=== PATIENT | female | born 1955 | race Caucasian/White ===

== ENCOUNTER 2018-11-05 17:54 | Emergency (ER) | payer MEDICARE, BC ==
[2018-11-05] MEDS ORDERED: Sodium Chloride 0.9% 10 ML Syringe FLUSH PRN (18:27)
[2018-11-05] MEDS ORDERED: Sodium Chloride 0.9% 1,000 ML IV ONE (18:29)
[2018-11-05] MEDS ORDERED: Ondansetron 4 MG/2 ML SDV IVPUSH ONE ×2 (18:29→20:35)
--- NOTE | 2018-11-05 18:46 | EDM.PDOC ---
<Dominick Pino - Last Filed: 11/05/18 19:00> ED HPI GENERAL MEDICAL PROBLEM - General Stated Complaint: THROAT?? Time Seen by Provider: 11/05/18 18:43 Source of Information: Reports: Family History Limitations: Reports: Other (Patient with severe mental retardation and cannot give me any history.) - History of Present Illness INITIAL COMMENTS - FREE TEXT/NARRATIVE: 62-year-old female with developmental delay and mental retardation who according to the patient's mother who is the patient's primary caregiver had a hoarse voice on Sunday of this last week and seemed to improve on Sunday and was eating and drinking normally and having normal activity level per her. The following day though she seemed to be having more discomfort and was sleeping more and was weak according to the mother. Beginning yesterday she slept all day and was complaining of some pain and this appeared to be in her chest. Today according to the mother the patient has been crying all day and pointing to her chest and her back reporting pain in this area. She also developed some vomiting this afternoon that was mostly mucus and that has persisted upon her arrival. She has had no fevers noted by the mother. She had a normal bowel movement today. She has had no apparent difficulty breathing. Really no other history can be obtained. There are no other associated signs or symptoms. There are no other modifying factors. Onset: Other (4 days ago) Duration: Getting Worse Location: Reports: Neck (Throat?), Chest (?), Other (Unknown) Quality: Reports: Other (Unknown) Severity: Moderate (to severe) Improves with: Reports: None Worsens with: Reports: None Context: Reports: Other (As above) Associated Symptoms: Reports: Nausea/Vomiting, Weakness Treatments TRUCK GUARD: Reports: Acetaminophen - Related Data Allergies Allergy/AdvReac Type Severity Reaction Status Date / Time lactose Allergy Diarrhea Verified 11/05/18 20:41 metoclopramide [From Reglan] Allergy Vomiting Verified 11/05/18 20:41 morphine Allergy Rash Verified 11/05/18 20:41 scopolamine Allergy Agitation Verified 11/05/18 20:41 Home Meds: Home Meds Acetaminophen 325 mg PO ASDIRECTED 11/27/15 [History] LORazepam 1 mg PO ASDIRECTED 11/27/15 [History] Multivitamin with Minerals [Multiple Vitamin] 1 tab PO DAILY 11/27/15 [History] Past Medical History HEENT History: Reports: Impaired Vision, Other (See Below) 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 Gastrointestinal History: Reports: Other (See Below) Other Gastrointestinal History: lactose intolarant Musculoskeletal History: Reports: Other (See Below) Other Musculoskeletal History: SCOLIOSIS Neurological History: Reports: Other (See Below) Other Neuro History: MICROCEPHALY Psychiatric History: Reports: Developmental Delay (With mental retardation) - Infectious Disease History Infectious Disease History: Reports: None - Past Surgical History HEENT Surgical History: Reports: Oral Surgery GI Surgical History: Reports: Other (See Below) (Surgery for prolapsed rectum) Musculoskeletal Surgical History: Reports: Hip Replacement Other Dermatological Surgeries/Procedures: Pilonidal cystectomy Social & Family History - Tobacco Use Smoking Status *Q: Never Smoker - Caffeine Use Caffeine Use: Reports: None - Alcohol Use Alcohol Use History: No - Living Situation & Occupation Living situation: Reports: Single Occupation: Disabled Social History Comment: She lives with her mother who is the patient's caregiver and has been for the patient's entire life. ED ROS GENERAL - Review of Systems Review Of Systems: Unable To Obtain (The patient cannot provide this information. The only a patient I have is from the mother and is in the history of present illness.) ED EXAM, GENERAL - Physical Exam Exam: See Below Exam Limited By: Uncooperative General Appearance: Alert, Moderate Distress, Obese Eye Exam: Bilateral Eye: EOMI, Normal Inspection (Sclera are anicteric) Ears: Normal External Exam Nose: Normal Inspection, Normal Mucosa, No Blood Throat/Mouth: Normal Voice, No Airway Compromise, Other (Poor dentition. The oral mucosa appears somewhat dry. I cannot get a good look at her posterior pharynx secondary to her being noncooperative.) Head: Atraumatic Neck: Normal Inspection, Supple, Non-Tender, Full Range of Motion Respiratory/Chest: No Respiratory Distress, Lungs Clear, Normal Breath Sounds, No Accessory Muscle Use, Chest Non-Tender Cardiovascular: Normal Peripheral Pulses, Regular Rate, Rhythm, No JVD, No Murmur Peripheral Pulses: 2+: Radial (L), Radial (R) GI/Abdominal: Normal Bowel Sounds, Soft, Non-Tender, No Mass Back Exam: Normal Inspection Extremities: Normal Inspection, Normal Range of Motion, No Pedal Edema, Normal Capillary Refill Neurological: Alert, No Motor/Sensory Deficits Skin Exam: Warm, Dry, Intact, Normal Color, No Rash Course - Vital Signs Last Recorded V/S: Last Vital Signs Temp 36.3 C 11/05/18 20:00 Pulse 92 11/05/18 20:00 Resp 18 11/05/18 20:00 BP 128/88 11/05/18 20:00 Pulse Ox - Orders/Labs/Meds Orders: Active Orders 24 hr Category Date Time Status EKG Documentation Completion [RC] ASDIRECTED Care 11/05/18 18:28 Active CULTURE URINE [RM] Stat Lab 11/05/18 18:28 Ordered Sodium Chloride 0.9% [Saline Flush] Med 11/05/18 18:27 Active 10 ml FLUSH ASDIRECTED PRN Peripheral IV Insertion Adult [OM.PC] Routine Oth 11/05/18 18:27 Ordered EKG 12 Lead [EK] Routine Ther 11/05/18 18:27 Ordered Medication Orders Sodium Chloride (Saline Flush) 10 ml FLUSH ASDIRECTED PRN PRN Reason: Keep Vein Open Labs: Laboratory Tests 11/05/18 11/05/18 11/05/18 Range/Units 19:11 19:40 19:40 WBC 4.8 (4.5-12.0) X10-3/uL RBC 4.57 (3.23-5.20) x10(6)uL Hgb 13.2 (11.5-15.5) g/dL Hct 40.3 (30.0-51.3) % MCV 88.1 (80-96) fL MCH 28.8 (27.7-33.6) pg MCHC 32.8 (32.2-35.4) g/dL RDW 13.6 (11.5-15.5) % Plt Count 255 (125-369) X10(3)uL MPV 9.3 (7.4-10.4) fL Neut % (Auto) 71.8 (46-82) % Lymph % (Auto) 20.3 (13-37) % [place] % (Auto) 7.3 (4-12) % Eos % (Auto) 0 L (1.0-5.0) % Baso % (Auto) 0 (0-2) % Neut # (Auto) 3.4 (1.6-8.3) # Lymph # (Auto) 1.0 (0.6-5.0) # [place] # (Auto) 0.4 (0.0-1.3) # Eos # (Auto) 0.0 (0.0-0.8) # Baso # (Auto) 0.0 (0.0-0.2) # Sodium 142 (135-145) mmol/L Potassium 4.0 (3.5-5.3) mmol/L Chloride 104 (100-110) mmol/L Carbon Dioxide 27 (21-32) mmol/L BUN 22 H (7-18) mg/dL Creatinine 1.1 H (0.55-1.02) mg/dL Est Cr Clr Drug Dosing TNP Estimated GFR (MDRD) 50 L (>60) BUN/Creatinine Ratio 20.0 (9-20) Glucose 159 H (80-116) mg/dL Lactic Acid (0.4-2.2) mmol/L Calcium 11.0 H (8.6-10.2) mg/dL Total Bilirubin 0.3 (0.1-1.3) mg/dL AST 12 (5-25) IU/L ALT 19 (12-36) U/L Alkaline Phosphatase 147 H (56-112) IU/L Troponin I (<0.017-0.056) ng/mL Total Protein 7.7 (6.0-8.0) g/dL Albumin 3.7 (3.2-4.6) g/dL Globulin 4.0 g/dL Albumin/Globulin Ratio 0.9 Amylase 137 H (25-115) U/L Urine Color Yellow (YELLOW) Urine Appearance Clear (CLEAR) Urine pH 5.0 (5.0-6.5) Ur Specific [place] 1.025 (1.010-1.025) Urine Protein Trace (NEGATIVE) mg/dL Urine Glucose (UA) 250 H (NORMAL) mg/dL Urine Ketones 15 H (NEGATIVE) mg/dL Urine Occult Blood Negative (NEGATIVE) Urine Nitrite Negative (NEGATIVE) Urine Bilirubin Negative (NEGATIVE) Urine Urobilinogen Normal (NEGATIVE) mg/dL Ur Leukocyte Esterase Negative (NEGATIVE) Urine RBC 0-5 (0-5) Urine WBC 0-5 (0-5) Ur Epithelial Cells Occasional Urine Bacteria Few H (NS) Urine Mucus Many H (NS) 11/05/18 11/05/18 Range/Units 19:40 19:40 WBC (4.5-12.0) X10-3/uL RBC (3.23-5.20) x10(6)uL Hgb (11.5-15.5) g/dL Hct (30.0-51.3) % MCV (80-96) fL MCH (27.7-33.6) pg MCHC (32.2-35.4) g/dL RDW (11.5-15.5) % Plt Count (125-369) X10(3)uL MPV (7.4-10.4) fL Neut % (Auto) (46-82) % Lymph % (Auto) (13-37) % [place] % (Auto) (4-12) % Eos % (Auto) (1.0-5.0) % Baso % (Auto) (0-2) % Neut # (Auto) (1.6-8.3) # Lymph # (Auto) (0.6-5.0) # [place] # (Auto) (0.0-1.3) # Eos # (Auto) (0.0-0.8) # Baso # (Auto) (0.0-0.2) # Sodium (135-145) mmol/L Potassium (3.5-5.3) mmol/L Chloride (100-110) mmol/L Carbon Dioxide (21-32) mmol/L BUN (7-18) mg/dL Creatinine (0.55-1.02) mg/dL Est Cr Clr Drug Dosing Estimated GFR (MDRD) (>60) BUN/Creatinine Ratio (9-20) Glucose (80-116) mg/dL Lactic Acid 3.1 H (0.4-2.2) mmol/L Calcium (8.6-10.2) mg/dL Total Bilirubin (0.1-1.3) mg/dL AST (5-25) IU/L ALT (12-36) U/L Alkaline Phosphatase (56-112) IU/L Troponin I < 0.017 L (<0.017-0.056) ng/mL Total Protein (6.0-8.0) g/dL Albumin (3.2-4.6) g/dL Globulin g/dL Albumin/Globulin Ratio Amylase (25-115) U/L Urine Color (YELLOW) Urine Appearance (CLEAR) Urine pH (5.0-6.5) Ur Specific [place] (1.010-1.025) Urine Protein (NEGATIVE) mg/dL Urine Glucose (UA) (NORMAL) mg/dL Urine Ketones (NEGATIVE) mg/dL Urine Occult Blood (NEGATIVE) Urine Nitrite (NEGATIVE) Urine Bilirubin (NEGATIVE) Urine Urobilinogen (NEGATIVE) mg/dL Ur Leukocyte Esterase (NEGATIVE) Urine RBC (0-5) Urine WBC (0-5) Ur Epithelial Cells Urine Bacteria (NS) Urine Mucus (NS) Meds: Medications Generic Name Dose Route Start Last Admin Trade Name Freq PRN Reason Stop Dose Admin Sodium Chloride 10 ml 11/05/18 18:27 Saline Flush FLUSH ASDIRECTED PRN Keep Vein Open Discontinued Medications Generic Name Dose Route Start Last Admin Trade Name Freq PRN Reason Stop Dose Admin Sodium Chloride 1,000 mls @ 999 mls/hr 11/05/18 18:29 11/05/18 21:00 Normal Saline IV 11/05/18 19:29 999 mls/hr .BOLUS ONE Administration Famotidine 20 mg/ Premix 50 mls @ 200 mls/hr 11/05/18 20:35 11/05/18 21:10 IV 11/05/18 20:36 200 mls/hr ONETIME ONE Administration Lorazepam 1 mg 11/05/18 18:58 11/05/18 19:05 Ativan IM 11/05/18 18:59 1 mg ONETIME ONE Administration Lorazepam 1.5 mg 11/05/18 19:56 11/05/18 20:06 Ativan IM 11/05/18 19:57 1.5 mg ONETIME ONE Administration Ondansetron HCl 4 mg 11/05/18 18:29 11/05/18 21:10 Zofran IVPUSH 11/05/18 18:30 4 mg ONETIME ONE Administration Ondansetron HCl 4 mg 11/05/18 20:35 11/05/18 21:16 Zofran IVPUSH 11/05/18 20:36 Not Given ONETIME ONE - Re-Assessments/Exams Free Text/Narrative Re-Assessment/Exam: 11/05/18 19:10: Patient with continual complaints of what appears to be chest pain or throat pain. She does have somewhat dry mucous membranes. I have ordered blood tests, EKG and an IV. We are sedating the patient with Ativan to try to accomplish these things. At this point I will be turning the care over to Dr. Bone. Please see his note in regard to the patient's further care in the emergency department and her disposition. Departure - Departure Time of Disposition: 19:10 Disposition: Home, Self-Care 01 Condition: Fair Clinical Impression: Mental retardation, Dehydration, Mild dehydration Chest pain Qualifiers: Chest pain type: unspecified Qualified Code(s): R07.9 - Chest pain, unspecified Vomiting Qualifiers: Vomiting type: unspecified Vomiting Intractability: non-intractable Nausea presence: with nausea Qualified Code(s): R11.2 - Nausea with vomiting, unspecified GERD (gastroesophageal reflux disease) Qualifiers: Esophagitis presence: with esophagitis Qualified Code(s): K21.0 - Gastro- esophageal reflux disease with esophagitis - Discharge Information Instructions: Food Choices for Gastroesophageal Reflux Disease, Adult, Gastroesophageal Reflux Disease, Adult, [id number] Referrals: Alli Mendes MD [Primary Care Provider] - Additional Instructions: Give famotidine 20 mg every evening for reduction of stomach acid. Give Zofran ODT 4 mg every 8 hrs as needed for nausea. Follow up with you provider within the week. Return if a lot worse. Antacids like Gaviscon after meal time and bedtime may also be helpful, give 30 ml per dose. <Rishi Bone - Last Filed: 11/05/18 22:18> ED HPI GENERAL MEDICAL PROBLEM throat Pain Score (Numeric/FACES): 7 Course - Vital Signs Text/Narrative:: Anesthesia here to assist with IV access. Unsuccessful with attempting to obtain an EKG due to patient resistance. Seems more comfortable after treatment. No vomiting during ER visit. Departure - Departure Time of Disposition: 20:20 - Discharge Information *PRESCRIPTION DRUG MONITORING PROGRAM REVIEWED*: No *COPY OF PRESCRIPTION DRUG MONITORING REPORT IN PATIENT LAURA: No
[2018-11-05] MEDS ORDERED: LORazepam 2 MG/ML SDV IM ONE ×2 (18:58→19:56)
[2018-11-05] MEDS ORDERED: Famotidine/Normal Saline 20 MG in Premix Bag 1 BAG IV ONE (20:35)
--- NOTE | 2018-11-05 21:08 | PCM.SN ---
- Free Text/Narrative Note: Was called to ER to start an IV on combative patient who they have attemptted to start an IV on.With the assistance of three nurses holding patient was able to start a 20 jelco after two attempts in right arm.Secured with coban wrap.
[2018-11-05 21:35] VITALS: BP 128/88
== END 2018-11-05 22:30 | disposition home or self-care (01) ==
LOC: FB.ED 17:54
DX: E86.0 Dehydration (principal); R07.9 Chest pain, unspecified; K21.0 Gastro-esophageal reflux disease with esophagitis; F79 Unspecified intellectual disabilities; Z88.6 Allergy status to analgesic agent; Z91.011 Allergy to milk products; Z88.8 Allergy status to other drugs, medicaments and biological substances; Z79.899 Other long term (current) drug therapy
CPT/HCPCS: 36415; 80053; 81001; 82150; 83605; 84484; 85025; 96361; 96372; 96374; 96375; 99284; J2060; J2405; J7030

== ENCOUNTER 2018-11-13 19:52 | Inpatient (IN) | payer MEDICARE, BC ==
--- NOTE | 2018-11-13 20:42 | EDM.PDOC ---
ED HPI GENERAL MEDICAL PROBLEM - General Chief Complaint: Gastrointestinal Problem Stated Complaint: sick Time Seen by Provider: 11/13/18 20:33 Source of Information: Reports: Patient, Family History Limitations: Reports: No Limitations - History of Present Illness INITIAL COMMENTS - FREE TEXT/NARRATIVE: Patient is a 62-year-old female with a history of microcephaly who comes in tonight by her parents with concern for increasing agitation and significant decrease in by mouth intake. She was seen and evaluated in the ER approximately a week ago and diagnosed at that time with dehydration and possible GERD/upper GI irritation. She was given hydration fluids and started on Pepcid. Her mom reports that she improved for a few days, but today she has no appetite, she has been weak, she is refusing food and she is trembly to the point of doubling over like she is in pain. She has urinated normally, and had a normal bowel movement yesterday. She has not had a fever, she has not vomited, she has not had any other urinary symptoms such as increased frequency or urgency. She has a remote history of seizures, but has been off all medications for 10 years. She has no history of any heart or lung problems. She did have a broken hip which required repair several years ago and also a history of a prolapsed rectum requiring surgery. Otherwise she is generally healthy and is been in the care of her parents her entire life. 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 Gastrointestinal History: Reports: Other (See Below) Other Gastrointestinal History: lactose intolarant Musculoskeletal History: Reports: Other (See Below) Other Musculoskeletal History: SCOLIOSIS Neurological History: Reports: Other (See Below) Other Neuro History: MICROCEPHALY Psychiatric History: Reports: Developmental Delay (With mental retardation) - Infectious Disease History Infectious Disease History: Reports: None - Past Surgical History HEENT Surgical History: Reports: Oral Surgery GI Surgical History: Reports: Other (See Below) (Surgery for prolapsed rectum) Musculoskeletal Surgical History: Reports: Hip Replacement Other Dermatological Surgeries/Procedures: Pilonidal cystectomy Social & Family History - Family History Family Medical History: Noncontributory - Tobacco Use Smoking Status *Q: Never Smoker - Caffeine Use Caffeine Use: Reports: None - Alcohol Use Alcohol Use History: No - Recreational Drug Use Recreational Drug Use: No - Living Situation & Occupation Living situation: Reports: Single Occupation: Disabled Social History Comment: Cared for by Her 2 parents. ED ROS GENERAL - Review of Systems Review Of Systems: Unable To Obtain ED EXAM, GENERAL - Physical Exam Exam: See Below Free Text/Narrative:: General: Awakes to voice, not really responding to questions. Cries out when touched even with just very light touch. She does calm down after a bit. Pupils appear to be equal and reactive. Unable to obtain any sort of throat exam given her agitation. Her neck is supple. Her head appears atraumatic, and she has no tenderness with palpation of the spinous processes completely down her spine. Heart is regular rate and rhythm, lungs are clear throughout with no wheezes or crackles. Scoliosis of her back is noted. Abdomen has slightly decreased bowel sounds but seems to be completely nontender with no rigidity or rebound. Her peripheral pulses are +2 in the upper and lower extremities and she has no lower extremity edema. She has no obvious skin lesions or rashes. She does not answer questions, although her mother states that she can normally answer questions with 1-2 words. Course - Vital Signs Text/Narrative:: Chart reviewed and discussed history with mother extensively. Given patient's agitation, and recent change in mental status, will attempt to obtain a head CT. Discussed using dose of oral Versed for labs and IV placement. Her mother was in agreement with this plan. Following head CT and oral Versed, IV was able to be placed with minimal difficulty. saline bolus 1 L started Last Recorded V/S: Last Vital Signs Temp 35.7 C 11/13/18 19:52 Pulse 77 11/13/18 23:55 Resp 18 11/13/18 23:55 BP 141/80 H 11/13/18 23:55 Pulse Ox 100 11/13/18 23:55 - Orders/Labs/Meds Orders: Active Orders 24 hr Category Date Time Status EKG Documentation Completion [RC] ASDIRECTED Care 11/13/18 20:29 Active Head wo Cont [CT] Stat Exams 11/13/18 20:27 Taken OSMOLALITY, URINE Stat Lab 11/13/18 23:15 Ordered SODIUM,URINE RANDOM [URCHEM] Stat Lab 11/13/18 23:15 Ordered UA W/MICROSCOPIC [URIN] Stat Lab 11/13/18 23:17 Ordered Sodium Chloride 0.9% [Normal Saline] 1,000 ml Med 11/13/18 21:30 Active IV ASDIRECTED EKG 12 Lead [EK] Routine Ther 11/13/18 20:28 Ordered Medication Orders Sodium Chloride (Normal Saline) 1,000 mls @ 999 mls/hr IV ASDIRECTED [facility] Last Admin: 11/13/18 22:15 Dose: 999 mls/hr Dextrose/Sodium Chloride (Dextrose 5%-1/2 Ns) 1,000 mls @ 100 mls/hr IV ASDIRECTED [facility] Labs: Laboratory Tests 11/13/18 11/13/18 11/13/18 Range/Units 22:15 22:15 22:15 WBC 12.0 (4.5-12.0) X10-3/uL RBC 4.88 (3.23-5.20) x10(6)uL Hgb 14.2 (11.5-15.5) g/dL Hct 42.9 (30.0-51.3) % MCV 88.0 (80-96) fL MCH 29.0 (27.7-33.6) pg MCHC 33.0 (32.2-35.4) g/dL RDW 13.6 (11.5-15.5) % Plt Count 273 (125-369) X10(3)uL MPV 9.6 (7.4-10.4) fL Add Manual Diff Yes Neutrophils % (Manual) 88 H (46-82) % Lymphocytes % (Manual) 6 L (13-37) % Monocytes % (Manual) 6 (4-12) % Sodium 147 H (135-145) mmol/L Potassium 4.0 (3.5-5.3) mmol/L Chloride 107 (100-110) mmol/L Carbon Dioxide 27 (21-32) mmol/L BUN 27 H (7-18) mg/dL Creatinine 1.3 H (0.55-1.02) mg/dL Est Cr Clr Drug Dosing 37.75 mL/min Estimated GFR (MDRD) 41 L (>60) BUN/Creatinine Ratio 20.8 H (9-20) Glucose 149 H (80-116) mg/dL Lactic Acid (0.4-2.2) mmol/L Calcium 11.7 H (8.6-10.2) mg/dL Total Bilirubin 0.3 (0.1-1.3) mg/dL AST 16 D (5-25) IU/L ALT 21 D (12-36) U/L Alkaline Phosphatase 146 H (56-112) IU/L Creatine Kinase (60-160) IU/L Troponin I < 0.017 L (<0.017-0.056) ng/mL C-Reactive Protein < 0.2 L (0.5-0.9) mg/dL Total Protein 8.0 (6.0-8.0) g/dL Albumin 3.9 (3.2-4.6) g/dL Globulin 4.1 g/dL Albumin/Globulin Ratio 1.0 11/13/18 11/13/18 Range/Units 22:15 22:15 WBC (4.5-12.0) X10-3/uL RBC (3.23-5.20) x10(6)uL Hgb (11.5-15.5) g/dL Hct (30.0-51.3) % MCV (80-96) fL MCH (27.7-33.6) pg MCHC (32.2-35.4) g/dL RDW (11.5-15.5) % Plt Count (125-369) X10(3)uL MPV (7.4-10.4) fL Add Manual Diff Neutrophils % (Manual) (46-82) % Lymphocytes % (Manual) (13-37) % Monocytes % (Manual) (4-12) % Sodium (135-145) mmol/L Potassium (3.5-5.3) mmol/L Chloride (100-110) mmol/L Carbon Dioxide (21-32) mmol/L BUN (7-18) mg/dL Creatinine (0.55-1.02) mg/dL Est Cr Clr Drug Dosing mL/min Estimated GFR (MDRD) (>60) BUN/Creatinine Ratio (9-20) Glucose (80-116) mg/dL Lactic Acid 2.2 (0.4-2.2) mmol/L Calcium (8.6-10.2) mg/dL Total Bilirubin (0.1-1.3) mg/dL AST (5-25) IU/L ALT (12-36) U/L Alkaline Phosphatase (56-112) IU/L Creatine Kinase 159 (60-160) IU/L Troponin I (<0.017-0.056) ng/mL C-Reactive Protein (0.5-0.9) mg/dL Total Protein (6.0-8.0) g/dL Albumin (3.2-4.6) g/dL Globulin g/dL Albumin/Globulin Ratio Meds: Medications Generic Name Dose Route Start Last Admin Trade Name Freq PRN Reason Stop Dose Admin Sodium Chloride 1,000 mls @ 999 mls/hr 11/13/18 21:30 11/13/18 22:15 Normal Saline IV 999 mls/hr ASDIRECTED BLANE Administration Dextrose/Sodium Chloride 1,000 mls @ 100 mls/hr 11/13/18 23:45 Dextrose 5%-1/2 Ns IV ASDIRECTED [facility] Discontinued Medications Generic Name Dose Route Start Last Admin Trade Name Freq PRN Reason Stop Dose Admin Midazolam HCl 20 mg 11/13/18 20:51 11/13/18 21:40 Versed 2 Mg/Ml Soln PO 11/13/18 20:52 20 mg ONETIME ONE Administration Ondansetron HCl 8 mg 11/13/18 20:46 11/13/18 20:47 Zofran Odt PO 11/13/18 20:47 8 mg ONETIME ONE Administration - Re-Assessments/Exams Free Text/Narrative Re-Assessment/Exam: 11/13/18 CT head returns with no evidence of acute intracranial hemorrhage or midline shift, no obvious masses seen. Labs reviewed and CBC is within normal limits, metabolic profile shows elevated creatinine similar to last week, and patient is hypernatremic. Her CRP is not elevated and lactic acid is within normal limits. She is hypernatremic at 147. She was also noted to have an elevated calcium and elevated alkaline phosphatase. Discussed results with parents. Free water deficit calculated to be approximately 1.3 L, given her not taking any by mouth at this time recommended observation admission to the hospital overnight and will slowly get back some free fluid via IV. Recheck electrolytes in AM may warrant more aggressive treatment of hypercalcemia and will need to address underlying cause Plan: admit obs D5 1/2NS at 100ml/hr minimize disturbance overnight Uosm and Isaura ordered, although I think the cause of her hypernatremia is likely reduced free water intake recheck BMP in AM, includes Ca, Mag and Phos added further per hospitalist patient is DNR/DNI, parents have thought through this decision previously Departure - Departure Time of Disposition: 23:00 Disposition: Refer to Observation Condition: Undetermined Clinical Impression: Dehydration, Mental retardation, Hypernatremia, Hypercalcemia - Discharge Information *PRESCRIPTION DRUG MONITORING PROGRAM REVIEWED*: Not Applicable *COPY OF PRESCRIPTION DRUG MONITORING REPORT IN PATIENT LAURA: Not Applicable - My Orders Last 24 Hours: My Active Orders 11/13/18 20:27 Head wo Cont [CT] Stat 11/13/18 20:28 EKG 12 Lead [EK] Routine 11/13/18 20:29 EKG Documentation Completion [RC] ASDIRECTED 11/13/18 21:30 Sodium Chloride 0.9% [Normal Saline] 1,000 ml IV ASDIRECTED 11/13/18 23:15 OSMOLALITY, URINE Stat SODIUM,URINE RANDOM [URCHEM] Stat 11/13/18 23:17 UA W/MICROSCOPIC [URIN] Stat - Assessment/Plan Last 24 Hours: My Active Orders 11/13/18 20:27 Head wo Cont [CT] Stat 11/13/18 20:28 EKG 12 Lead [EK] Routine 11/13/18 20:29 EKG Documentation Completion [RC] ASDIRECTED 11/13/18 21:30 Sodium Chloride 0.9% [Normal Saline] 1,000 ml IV ASDIRECTED 11/13/18 23:15 OSMOLALITY, URINE Stat SODIUM,URINE RANDOM [URCHEM] Stat 11/13/18 23:17 UA W/MICROSCOPIC [URIN] Stat
[2018-11-13] MEDS ORDERED: Ondansetron 8 MG Tab.DIS PO ONE (20:46)
[2018-11-13] MEDS ORDERED: Midazolam Oral Soln 10 MG/5 ML UD Cup PO ONE (20:51)
[2018-11-13] MEDS ORDERED: Sodium Chloride 0.9% 1,000 ML IV SCH (21:30)
[2018-11-13] MEDS ORDERED: Dextrose 5%-0.45% NaCl 1,000 ML IV SCH (23:45)
--- NOTE | 2018-11-14 08:44 | PCM.HP.2 ---
H&P History of Present Illness - General Date of Service: 11/14/18 Admit Problem/Dx: Admission Diagnosis/Problem Admission Diagnosis/Problem Hypernatremia Source of Information: Family, Old Records History Limitations: Reports: Altered Mental Status - History of Present Illness Initial Comments - Free Text/Narative: This is a 62-year-old female patient with microcephaly but said 2 week history of not eating decrease consciousness. History is given by her mother which she lives with. Shows a lives with father. They said about a week ago about her and she was having what looked like chest pain and they did evaluation was negative and give her some fluids and sent home. Since then she's been getting more lethargic until yesterday she would want. Her normal function is she walks, goes about the, self dresses up. Mom states she has to help her do her hair and clean herself. A few times in the past she's had problems or she just laid there and didn't eat or drink for 2 weeks and also came out of it. She cannot give me a history. The only thing the parents as they ER told him she had reflux and she has leg swelling pills now because seems to hurt. - Related Data Allergies/Adverse Reactions: Allergies Allergy/AdvReac Type Severity Reaction Status Date / Time lactose Allergy Diarrhea Verified 11/05/18 20:41 metoclopramide [From Reglan] Allergy Vomiting Verified 11/05/18 20:41 morphine Allergy Rash Verified 11/05/18 20:41 scopolamine Allergy Agitation Verified 11/05/18 20:41 Home Medications: Home Meds Acetaminophen 325 mg PO ASDIRECTED 11/27/15 [History] Multivitamin with Minerals [Multiple Vitamin] 1 tab PO DAILY 11/27/15 [History] Famotidine 20 mg PO BEDTIME #30 tablet 11/05/18 [Rx] Past Medical History HEENT History: Reports: Impaired Vision, Other (See Below) 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 Gastrointestinal History: Reports: Other (See Below) Other Gastrointestinal History: lactose intolarant Musculoskeletal History: Reports: Other (See Below) Other Musculoskeletal History: SCOLIOSIS Neurological History: Reports: Other (See Below) Other Neuro History: MICROCEPHALY Psychiatric History: Reports: Developmental Delay (With mental retardation) - Infectious Disease History Infectious Disease History: Reports: None - Past Surgical History HEENT Surgical History: Reports: Oral Surgery GI Surgical History: Reports: Other (See Below) (Surgery for prolapsed rectum) Musculoskeletal Surgical History: Reports: Hip Replacement Other Dermatological Surgeries/Procedures: Pilonidal cystectomy Social & Family History - Family History Family Medical History: Noncontributory Cardiac: Reports: Heart Failure Musculoskeletal: Reports: Back pain, Chronic Endocrine/Metabolic: Reports: Diabetes, type II Hematologic: Reports: Other (See Below) Other Hematologic Family History: unknown blood disorder - Tobacco Use Smoking Status *Q: Never Smoker Second Hand Smoke Exposure: No - Caffeine Use Caffeine Use: Reports: None - Recreational Drug Use Recreational Drug Use: No - Living Situation & Occupation Living situation: Reports: Single Occupation: Disabled H&P Review of Systems - Review of Systems: Review Of Systems: Unable To Obtain Exam - Exam Exam: See Below - Vital Signs Vital Signs: Last Vital Signs Temp 98.2 F 11/14/18 06:01 Pulse 78 11/14/18 06:01 Resp 18 11/14/18 06:01 BP 135/76 11/14/18 06:01 Pulse Ox 99 11/14/18 06:01 Weight: 87 lb 1 oz - Exam General: Other (Eyes open and if I ask her to move she groans.) HEENT: Hearing Intact, Other (Not able to get a good look at her throat.) Neck: Supple, Trachea Midline Lungs: Clear to Auscultation, Normal Respiratory Effort Cardiovascular: Regular Rate, Regular Rhythm. No: Systolic Murmur GI/Abdominal Exam: Normal Bowel Sounds, Soft, Non-Tender. No: No Distention Back Exam: Normal Inspection Extremities: Normal Inspection, No Pedal Edema Skin: Warm Neurological: Normal Tone - Patient Data Lab Results Last 24 hrs: Laboratory Results - last 24 hr 11/13/18 11/13/18 11/13/18 Range/Units 22:15 22:15 22:15 WBC 12.0 (4.5-12.0) X10-3/uL RBC 4.88 (3.23-5.20) x10(6)uL Hgb 14.2 (11.5-15.5) g/dL Hct 42.9 (30.0-51.3) % MCV 88.0 (80-96) fL MCH 29.0 (27.7-33.6) pg MCHC 33.0 (32.2-35.4) g/dL RDW 13.6 (11.5-15.5) % Plt Count 273 (125-369) X10(3)uL MPV 9.6 (7.4-10.4) fL Add Manual Diff Yes Neutrophils % (Manual) 88 H (46-82) % Lymphocytes % (Manual) 6 L (13-37) % Monocytes % (Manual) 6 (4-12) % Sodium 147 H (135-145) mmol/L Potassium 4.0 (3.5-5.3) mmol/L Chloride 107 (100-110) mmol/L Carbon Dioxide 27 (21-32) mmol/L BUN 27 H (7-18) mg/dL Creatinine 1.3 H (0.55-1.02) mg/dL Est Cr Clr Drug Dosing 37.75 mL/min Estimated GFR (MDRD) 41 L (>60) BUN/Creatinine Ratio 20.8 H (9-20) Glucose 149 H (80-116) mg/dL Lactic Acid (0.4-2.2) mmol/L Calcium 11.7 H (8.6-10.2) mg/dL Total Bilirubin 0.3 (0.1-1.3) mg/dL AST 16 D (5-25) IU/L ALT 21 D (12-36) U/L Alkaline Phosphatase 146 H (56-112) IU/L Creatine Kinase (60-160) IU/L Troponin I < 0.017 L (<0.017-0.056) ng/mL C-Reactive Protein < 0.2 L (0.5-0.9) mg/dL Total Protein 8.0 (6.0-8.0) g/dL Albumin 3.9 (3.2-4.6) g/dL Globulin 4.1 g/dL Albumin/Globulin Ratio 1.0 Urine Color (YELLOW) Urine Appearance (CLEAR) Urine pH (5.0-6.5) Ur Specific [place] (1.010-1.025) Urine Protein (NEGATIVE) mg/dL Urine Glucose (UA) (NORMAL) mg/dL Urine Ketones (NEGATIVE) mg/dL Urine Occult Blood (NEGATIVE) Urine Nitrite (NEGATIVE) Urine Bilirubin (NEGATIVE) Urine Urobilinogen (NEGATIVE) mg/dL Ur Leukocyte Esterase (NEGATIVE) Urine RBC (0-5) Urine WBC (0-5) Ur Squamous Epith Cells (NS,R,O) Urine Bacteria (NS) Urine Mucus (NS) Ur Random Sodium mmol/L 11/13/18 11/13/18 11/14/18 Range/Units 22:15 22:15 05:45 WBC (4.5-12.0) X10-3/uL RBC (3.23-5.20) x10(6)uL Hgb (11.5-15.5) g/dL Hct (30.0-51.3) % MCV (80-96) fL MCH (27.7-33.6) pg MCHC (32.2-35.4) g/dL RDW (11.5-15.5) % Plt Count (125-369) X10(3)uL MPV (7.4-10.4) fL Add Manual Diff Neutrophils % (Manual) (46-82) % Lymphocytes % (Manual) (13-37) % Monocytes % (Manual) (4-12) % Sodium (135-145) mmol/L Potassium (3.5-5.3) mmol/L Chloride (100-110) mmol/L Carbon Dioxide (21-32) mmol/L BUN (7-18) mg/dL Creatinine (0.55-1.02) mg/dL Est Cr Clr Drug Dosing mL/min Estimated GFR (MDRD) (>60) BUN/Creatinine Ratio (9-20) Glucose (80-116) mg/dL Lactic Acid 2.2 (0.4-2.2) mmol/L Calcium (8.6-10.2) mg/dL Total Bilirubin (0.1-1.3) mg/dL AST (5-25) IU/L ALT (12-36) U/L Alkaline Phosphatase (56-112) IU/L Creatine Kinase 159 (60-160) IU/L Troponin I (<0.017-0.056) ng/mL C-Reactive Protein (0.5-0.9) mg/dL Total Protein (6.0-8.0) g/dL Albumin (3.2-4.6) g/dL Globulin g/dL Albumin/Globulin Ratio Urine Color (YELLOW) Urine Appearance (CLEAR) Urine pH (5.0-6.5) Ur Specific [place] (1.010-1.025) Urine Protein (NEGATIVE) mg/dL Urine Glucose (UA) (NORMAL) mg/dL Urine Ketones (NEGATIVE) mg/dL Urine Occult Blood (NEGATIVE) Urine Nitrite (NEGATIVE) Urine Bilirubin (NEGATIVE) Urine Urobilinogen (NEGATIVE) mg/dL Ur Leukocyte Esterase (NEGATIVE) Urine RBC (0-5) Urine WBC (0-5) Ur Squamous Epith Cells (NS,R,O) Urine Bacteria (NS) Urine Mucus (NS) Ur Random Sodium 61 mmol/L 11/14/18 11/14/18 Range/Units 05:45 07:00 WBC (4.5-12.0) X10-3/uL RBC (3.23-5.20) x10(6)uL Hgb (11.5-15.5) g/dL Hct (30.0-51.3) % MCV (80-96) fL MCH (27.7-33.6) pg MCHC (32.2-35.4) g/dL RDW (11.5-15.5) % Plt Count (125-369) X10(3)uL MPV (7.4-10.4) fL Add Manual Diff Neutrophils % (Manual) (46-82) % Lymphocytes % (Manual) (13-37) % Monocytes % (Manual) (4-12) % Sodium 146 H (135-145) mmol/L Potassium 3.9 (3.5-5.3) mmol/L Chloride 111 H (100-110) mmol/L Carbon Dioxide 30 (21-32) mmol/L BUN 25 H (7-18) mg/dL Creatinine 1.0 (0.55-1.02) mg/dL Est Cr Clr Drug Dosing 35.43 mL/min Estimated GFR (MDRD) 56 L (>60) BUN/Creatinine Ratio 25.0 H (9-20) Glucose 154 H (80-116) mg/dL Lactic Acid (0.4-2.2) mmol/L Calcium 10.2 (8.6-10.2) mg/dL Total Bilirubin (0.1-1.3) mg/dL AST (5-25) IU/L ALT (12-36) U/L Alkaline Phosphatase (56-112) IU/L Creatine Kinase (60-160) IU/L Troponin I (<0.017-0.056) ng/mL C-Reactive Protein (0.5-0.9) mg/dL Total Protein (6.0-8.0) g/dL Albumin (3.2-4.6) g/dL Globulin g/dL Albumin/Globulin Ratio Urine Color Yellow (YELLOW) Urine Appearance Clear (CLEAR) Urine pH 5.0 (5.0-6.5) Ur Specific [place] 1.025 (1.010-1.025) Urine Protein Trace (NEGATIVE) mg/dL Urine Glucose (UA) 50 H (NORMAL) mg/dL Urine Ketones 50 H (NEGATIVE) mg/dL Urine Occult Blood Negative (NEGATIVE) Urine Nitrite Negative (NEGATIVE) Urine Bilirubin Negative (NEGATIVE) Urine Urobilinogen Normal (NEGATIVE) mg/dL Ur Leukocyte Esterase Negative (NEGATIVE) Urine RBC 0-5 (0-5) Urine WBC 0-5 (0-5) Ur Squamous Epith Cells Few H (NS,R,O) Urine Bacteria Few H (NS) Urine Mucus Moderate H (NS) Ur Random Sodium mmol/L Result Diagrams: 11/13/18 22:15 11/14/18 07:00 - Problem List (1) Dehydration SNOMED Code(s): 97778773 ICD Code: E86.0 - DEHYDRATION Status: Acute Current Visit: Yes (2) Hypercalcemia SNOMED Code(s): 25081551 ICD Code: E83.52 - HYPERCALCEMIA Status: Acute Current Visit: Yes (3) Hypernatremia SNOMED Code(s): 474615139 ICD Code: E87.0 - HYPEROSMOLALITY AND HYPERNATREMIA Status: Acute Current Visit: Yes (4) Mental retardation SNOMED Code(s): 664294268 ICD Code: F79 - UNSPECIFIED INTELLECTUAL DISABILITIES Status: Chronic Current Visit: Yes (5) GERD (gastroesophageal reflux disease) SNOMED Code(s): 654881324 ICD Code: K21.9 - GASTRO-ESOPHAGEAL REFLUX DISEASE WITHOUT ESOPHAGITIS Status: Acute Current Visit: No Qualifiers: Esophagitis presence: with esophagitis Qualified Code(s): K21.0 - Gastro- esophageal reflux disease with esophagitis (6) Seizure disorder SNOMED Code(s): 562352410 ICD Code: G40.909 - EPILEPSY, UNSP, NOT INTRACTABLE, WITHOUT STATUS EPILEPTICUS Status: Chronic Current Visit: No Problem List Initiated/Reviewed/Updated: Yes Orders Last 24hrs: Active Orders 24 hr Category Date Time Status Patient Status [ADT] Routine ADT 11/13/18 23:51 Active Oxygen Therapy [RC] PRN Care 11/13/18 23:51 Active Up With Assistance [RC] ASDIRECTED Care 11/13/18 23:51 Active VTE/DVT Education [RC] Per Unit Routine Care 11/13/18 23:51 Active Vital Signs [RC] 00,04,08,12,16,20 Care 11/13/18 23:51 Active Regular Diet [DIET] Diet 11/14/18 Breakfast Active Head wo Cont [CT] Stat Exams 11/13/18 20:27 Taken OSMOLALITY, URINE Stat Lab 11/13/18 23:15 Received Dextrose 5%-0.45% NaCl [Dextrose 5%-1/2 NS] 1,000 ml Med 11/13/18 23:45 Active IV ASDIRECTED Resuscitation Status Routine Resus Stat 11/13/18 23:51 Ordered EKG 12 Lead [EK] Routine Ther 11/13/18 20:28 Ordered Medication Orders Dextrose/Sodium Chloride (Dextrose 5%-1/2 Ns) 1,000 mls @ 100 mls/hr IV ASDIRECTED [facility] Last Admin: 11/14/18 00:56 Dose: 100 mls/hr Assessment/Plan Comment:: 1. Admit for observation. 2. DNR DNI requested by her caregivers 3. IV fluids with free water to correct her sodium 4. Recheck BMP 5. Regular diet 6. Resume regular medications 7. Up with assist 8. Lovenox for VTE prophylaxis. 9. Family does not want anything overly aggressive done
[2018-11-14] MEDS ORDERED: Enoxaparin 40 MG/0.4 ML Syringe SUBCUT SCH (08:45)
[2018-11-14] MEDS: Enoxaparin 30 MG/0.3 ML Syringe SUBCUT SCH (09:47)
[2018-11-14] MEDS: Sodium Chloride 0.9% 1,000 ML IV SCH ×2 (11:06→17:40)
[2018-11-14] MEDS ORDERED: Famotidine 20 MG Tab PO SCH (21:00)
[2018-11-15] MEDS: Sodium Chloride 0.9% 1,000 ML IV SCH ×4 (00:52→23:30)
[2018-11-15] MEDS: Enoxaparin 30 MG/0.3 ML Syringe SUBCUT SCH (10:36)
--- NOTE | 2018-11-15 14:01 | PCM.PN ---
- General Info Date of Service: 11/15/18 Subjective Update: Information from mom this morning, gagging on her Pepcid last night, thought she was doing well overnight but states she is not to her baseline and felt she couldn't care for her safely at home. She is urinating more but no odor, is on IV fluids at 150 ml/hr. No diarrhea/vomiting. Normally walks and dresses herself. - Patient Data Vitals - Most Recent: Last Vital Signs Temp 36.7 C 11/15/18 12:00 Pulse 72 11/15/18 12:00 Resp 15 11/15/18 12:00 BP 132/68 11/15/18 12:00 Pulse Ox 97 11/15/18 12:00 Weight - Most Recent: 39.491 kg I&O - Last 24 Hours: Intake & Output 11/14/18 11/15/18 11/15/18 22:59 06:59 14:59 Intake Total 2399 Output Total 750 400 Balance 1649 -400 Lab Results Last 24 Hours: Laboratory Results - last 24 hr 11/14/18 11/15/18 Range/Units 16:54 06:06 Sodium 146 H 145 (135-145) mmol/L Potassium 3.9 (3.5-5.3) mmol/L Chloride 111 H (100-110) mmol/L Carbon Dioxide 26 (21-32) mmol/L BUN 12 D (7-18) mg/dL Creatinine 0.7 (0.55-1.02) mg/dL Est Cr Clr Drug Dosing 50.62 mL/min Estimated GFR (MDRD) > 60 (>60) BUN/Creatinine Ratio 17.1 (9-20) Glucose 92 (80-116) mg/dL Calcium 9.6 (8.6-10.2) mg/dL Med Orders - Current: Current Medications Enoxaparin Sodium (Lovenox) 30 mg SUBCUT Q24H [facility] Last Admin: 11/15/18 10:36 Dose: 30 mg Famotidine (Pepcid) 20 mg PO BEDTIME [facility] Last Admin: 11/14/18 22:03 Dose: Not Given Sodium Chloride (Normal Saline) 1,000 mls @ 125 mls/hr IV ASDIRECTED [facility] Last Infusion: 11/15/18 10:30 Dose: 125 mls/hr Famotidine 20 mg/ Premix 50 mls @ 200 mls/hr IV BEDTIME [facility] Discontinued Medications Sodium Chloride (Normal Saline) 1,000 mls @ 999 mls/hr IV ASDIRECTED [facility] Last Admin: 11/13/18 22:15 Dose: 999 mls/hr Dextrose/Sodium Chloride (Dextrose 5%-1/2 Ns) 1,000 mls @ 100 mls/hr IV ASDIRECTED [facility] Last Admin: 11/14/18 00:56 Dose: 100 mls/hr Midazolam HCl (Versed 2 Mg/Ml Soln) 20 mg PO ONETIME ONE Stop: 11/13/18 20:52 Last Admin: 11/13/18 21:40 Dose: 20 mg Ondansetron HCl (Zofran Odt) 8 mg PO ONETIME ONE Stop: 11/13/18 20:47 Last Admin: 11/13/18 20:47 Dose: 8 mg - Exam General: Alert, No Acute Distress Lungs: Clear to Auscultation, Normal Respiratory Effort Cardiovascular: Regular Rate, Regular Rhythm GI/Abdominal Exam: Normal Bowel Sounds, Soft, Non-Tender, No Distention Extremities: No Pedal Edema Skin: Dry (lips) - Problem List & Annotations (1) Microencephaly SNOMED Code(s): 0585345 Code(s): Q02 - MICROCEPHALY Status: Acute Current Visit: Yes (2) Dehydration SNOMED Code(s): 01635320 Code(s): E86.0 - DEHYDRATION Status: Acute Current Visit: Yes (3) Hypernatremia SNOMED Code(s): 954464246 Code(s): E87.0 - HYPEROSMOLALITY AND HYPERNATREMIA Status: Acute Current Visit: Yes (4) Mental retardation SNOMED Code(s): 103381988 Code(s): F79 - UNSPECIFIED INTELLECTUAL DISABILITIES Status: Chronic Current Visit: Yes (5) GERD (gastroesophageal reflux disease) SNOMED Code(s): 564088483 Code(s): K21.9 - GASTRO-ESOPHAGEAL REFLUX DISEASE WITHOUT ESOPHAGITIS Status: Acute Current Visit: No Qualifiers: Esophagitis presence: with esophagitis Qualified Code(s): K21.0 - Gastro- esophageal reflux disease with esophagitis (6) Seizure disorder SNOMED Code(s): 804756387 Code(s): G40.909 - EPILEPSY, UNSP, NOT INTRACTABLE, WITHOUT STATUS EPILEPTICUS Status: Chronic Current Visit: No - Problem List Review Problem List Initiated/Reviewed/Updated: Yes - My Orders Last 24 Hours: My Active Orders 11/15/18 09:15 PT Evaluation and Treatment [CONS] Routine 11/15/18 21:00 Famotidine/Normal Saline [Famotidine in NS Premix] 20 mg Premix Bag 1 bag IV BEDTIME - Plan Plan:: 1. Labs corrected this morning, decrease to NS 125 ml/hr. 2. DNR DNI requested by her caregivers 3. Regular diet 4. Resume regular medications except pepcid will hold and give IV as she is gagging with this one. 5. Up with assist 6. Lovenox for VTE prophylaxis. 7. Family does not want anything overly aggressive done
[2018-11-15] MEDS: Famotidine/Normal Saline 20 MG in Premix Bag 1 BAG IV SCH (20:51)
[2018-11-16] MEDS: Sodium Chloride 0.9% 1,000 ML IV SCH ×2 (07:31→15:36)
[2018-11-16] MEDS: Enoxaparin 30 MG/0.3 ML Syringe SUBCUT SCH (08:53)
--- NOTE | 2018-11-16 09:29 | PCM.PN ---
- General Info Date of Service: 11/16/18 Subjective Update: History from mom as patient has limited verbal abilities. She has been taking sips of water. Mom would like to try some soft foods. [place] she was better since switching Pepcid to IV form. She does tolerate liquid forms. Went 5 hours last night without having to get up to urinate. She is able to ambulate with one assist per nursing. - Patient Data Vitals - Most Recent: Last Vital Signs Temp 36.5 C 11/16/18 00:00 Pulse 68 11/16/18 00:00 Resp 18 11/16/18 04:00 BP 155/90 H 11/16/18 00:00 Pulse Ox 99 11/16/18 00:00 Weight - Most Recent: 39.599 kg I&O - Last 24 Hours: Intake & Output 11/15/18 11/16/18 11/16/18 22:59 06:59 14:59 Intake Total 2225 814 Output Total 300 Balance 1925 814 Med Orders - Current: Current Medications Enoxaparin Sodium (Lovenox) 30 mg SUBCUT Q24H [facility] Last Admin: 11/16/18 08:53 Dose: 30 mg Sodium Chloride (Normal Saline) 1,000 mls @ 125 mls/hr IV ASDIRECTED [facility] Last Admin: 11/16/18 07:31 Dose: 125 mls/hr Famotidine 20 mg/ Premix 50 mls @ 200 mls/hr IV BEDTIME [facility] Last Admin: 11/15/18 20:51 Dose: 200 mls/hr Discontinued Medications Famotidine (Pepcid) 20 mg PO BEDTIME [facility] Last Admin: 11/14/18 22:03 Dose: Not Given Sodium Chloride (Normal Saline) 1,000 mls @ 999 mls/hr IV ASDIRECTED [facility] Last Admin: 11/13/18 22:15 Dose: 999 mls/hr Dextrose/Sodium Chloride (Dextrose 5%-1/2 Ns) 1,000 mls @ 100 mls/hr IV ASDIRECTED [facility] Last Admin: 11/14/18 00:56 Dose: 100 mls/hr Midazolam HCl (Versed 2 Mg/Ml Soln) 20 mg PO ONETIME ONE Stop: 11/13/18 20:52 Last Admin: 11/13/18 21:40 Dose: 20 mg Ondansetron HCl (Zofran Odt) 8 mg PO ONETIME ONE Stop: 11/13/18 20:47 Last Admin: 11/13/18 20:47 Dose: 8 mg - Exam General: Alert, Cooperative, No Acute Distress Lungs: Clear to Auscultation, Normal Respiratory Effort Cardiovascular: Regular Rate, Regular Rhythm GI/Abdominal Exam: Soft, Non-Tender, No Distention, Abnormal Bowel Sounds ( hypoactive) Extremities: No Pedal Edema - Problem List & Annotations (1) Microencephaly SNOMED Code(s): 9438178 Code(s): Q02 - MICROCEPHALY Status: Acute Current Visit: Yes (2) Dehydration SNOMED Code(s): 44981331 Code(s): E86.0 - DEHYDRATION Status: Acute Current Visit: Yes Annotation/Comment:: improving (3) Hypernatremia SNOMED Code(s): 893441425 Code(s): E87.0 - HYPEROSMOLALITY AND HYPERNATREMIA Status: Resolved Current Visit: Yes (4) Mental retardation SNOMED Code(s): 622312694 Code(s): F79 - UNSPECIFIED INTELLECTUAL DISABILITIES Status: Chronic Current Visit: Yes (5) GERD (gastroesophageal reflux disease) SNOMED Code(s): 875430939 Code(s): K21.9 - GASTRO-ESOPHAGEAL REFLUX DISEASE WITHOUT ESOPHAGITIS Status: Acute Current Visit: No Qualifiers: Esophagitis presence: with esophagitis Qualified Code(s): K21.0 - Gastro- esophageal reflux disease with esophagitis Annotation/Comment:: improved with IV Pepcid (6) Seizure disorder SNOMED Code(s): 182655940 Code(s): G40.909 - EPILEPSY, UNSP, NOT INTRACTABLE, WITHOUT STATUS EPILEPTICUS Status: Chronic Current Visit: No - Problem List Review Problem List Initiated/Reviewed/Updated: Yes - My Orders Last 24 Hours: My Active Orders 11/15/18 09:15 PT Evaluation and Treatment [CONS] Routine 11/15/18 21:00 Famotidine/Normal Saline [Famotidine in NS Premix] 20 mg Premix Bag 1 bag IV BEDTIME - Plan Plan:: 1. NS 125 ml/hr will continue to decrease as her oral intake improves. 2. soft diet 3. IV Pepcid, if she tolerates soft diet will switch to liquid form. 4. Up with assist 5. Lovenox for VTE prophylaxis. 6. DNR DNI requested by her caregivers, Family does not want anything overly aggressive done 7. Adjust treatments as necessary.
[2018-11-16] MEDS: Famotidine/Normal Saline 20 MG in Premix Bag 1 BAG IV SCH (20:35)
[2018-11-17] MEDS: Sodium Chloride 0.9% 1,000 ML IV SCH ×2 (01:42→12:26)
--- NOTE | 2018-11-17 08:53 | PCM.PN ---
- General Info Date of Service: 11/17/18 Subjective Update: Mom states she ate some applesauce and a peanut butter cookie her brother gave her, but still not eating her usual. Has a puffy left hand but no other swelling. Not painful though mom states she has a high pain tolerance and doesn' t always tell her something hurts. She has been going to bathroom with less assistance but laying in bed more than usual and a little stiff. - Patient Data Vitals - Most Recent: Last Vital Signs Temp 36.4 C 11/16/18 20:00 Pulse 76 11/17/18 05:45 Resp 18 11/17/18 05:45 BP 147/75 H 11/17/18 05:45 Pulse Ox 98 11/17/18 05:45 Weight - Most Recent: 40.778 kg I&O - Last 24 Hours: Intake & Output 11/16/18 11/17/18 11/17/18 22:59 06:59 14:59 Intake Total 810 971 Output Total 1100 600 Balance -290 371 Lab Results Last 24 Hours: Laboratory Results - last 24 hr 11/14/18 Range/Units 05:45 Urine Osmolality 560 (.) mOsmol/kg Med Orders - Current: Current Medications Enoxaparin Sodium (Lovenox) 30 mg SUBCUT Q24H [facility] Last Admin: 11/16/18 08:53 Dose: 30 mg Sodium Chloride (Normal Saline) 1,000 mls @ 125 mls/hr IV ASDIRECTED [facility] Last Admin: 11/17/18 01:42 Dose: 100 mls/hr Famotidine 20 mg/ Premix 50 mls @ 200 mls/hr IV BEDTIME [facility] Last Admin: 11/16/18 20:35 Dose: 200 mls/hr Discontinued Medications Famotidine (Pepcid) 20 mg PO BEDTIME [facility] Last Admin: 11/14/18 22:03 Dose: Not Given Sodium Chloride (Normal Saline) 1,000 mls @ 999 mls/hr IV ASDIRECTED [facility] Last Admin: 11/13/18 22:15 Dose: 999 mls/hr Dextrose/Sodium Chloride (Dextrose 5%-1/2 Ns) 1,000 mls @ 100 mls/hr IV ASDIRECTED [facility] Last Admin: 11/14/18 00:56 Dose: 100 mls/hr Midazolam HCl (Versed 2 Mg/Ml Soln) 20 mg PO ONETIME ONE Stop: 11/13/18 20:52 Last Admin: 11/13/18 21:40 Dose: 20 mg Ondansetron HCl (Zofran Odt) 8 mg PO ONETIME ONE Stop: 11/13/18 20:47 Last Admin: 11/13/18 20:47 Dose: 8 mg - Exam General: Alert, Cooperative, No Acute Distress Lungs: Clear to Auscultation, Normal Respiratory Effort Cardiovascular: Regular Rate, Regular Rhythm GI/Abdominal Exam: Soft, Non-Tender, No Distention, Abnormal Bowel Sounds ( hypoactive) Extremities: No Pedal Edema, Other (slight swelling dorsum left hand but no erythema, warmth or ecchymosis.). No: Arm Pain Peripheral Pulses: 2+: Radial (L), Radial (R) Skin: Warm, Dry, Intact - Problem List & Annotations (1) Microencephaly SNOMED Code(s): 4123172 Code(s): Q02 - MICROCEPHALY Status: Acute Current Visit: Yes (2) Dehydration SNOMED Code(s): 30073104 Code(s): E86.0 - DEHYDRATION Status: Resolved Current Visit: Yes Annotation/Comment:: improving (3) Hypernatremia SNOMED Code(s): 290598922 Code(s): E87.0 - HYPEROSMOLALITY AND HYPERNATREMIA Status: Resolved Current Visit: Yes (4) Mental retardation SNOMED Code(s): 783328855 Code(s): F79 - UNSPECIFIED INTELLECTUAL DISABILITIES Status: Chronic Current Visit: Yes (5) GERD (gastroesophageal reflux disease) SNOMED Code(s): 314190501 Code(s): K21.9 - GASTRO-ESOPHAGEAL REFLUX DISEASE WITHOUT ESOPHAGITIS Status: Acute Current Visit: No Qualifiers: Esophagitis presence: with esophagitis Qualified Code(s): K21.0 - Gastro- esophageal reflux disease with esophagitis Annotation/Comment:: improved with IV Pepcid (6) Seizure disorder SNOMED Code(s): 676947248 Code(s): G40.909 - EPILEPSY, UNSP, NOT INTRACTABLE, WITHOUT STATUS EPILEPTICUS Status: Chronic Current Visit: No - Problem List Review Problem List Initiated/Reviewed/Updated: Yes - Plan Plan:: 1. Decrease to NS 75 ml/hr will continue to decrease as her oral intake improves. 2. soft diet 3. Try to switch her over to liquid if she does well at lunch. Mom using room service to pick her foods. 4. Up with assist 5. Lovenox for VTE prophylaxis. 6. DNR DNI requested by her caregivers, Family does not want anything overly aggressive done 7. Adjust treatments as necessary.
[2018-11-17] MEDS: Enoxaparin 30 MG/0.3 ML Syringe SUBCUT SCH (09:54)
[2018-11-17] MEDS: Famotidine/Normal Saline 20 MG in Premix Bag 1 BAG IV SCH (20:20)
[2018-11-18] MEDS: Sodium Chloride 0.9% 1,000 ML IV SCH (01:39)
[2018-11-18] MEDS: Enoxaparin 30 MG/0.3 ML Syringe SUBCUT SCH (10:03)
--- NOTE | 2018-11-18 14:41 | PCM.PN ---
- General Info Date of Service: 11/18/18 Subjective Update: Her parents are both here this morning, her dad was able to get her to eat more yesterday than she has been but still not very much. She is not as stiff in her legs today per mom. She has still been drinking very little but is smiling more and more interactive this morning. She is ambulating with her mom up to the bathroom, going about every 2 hours. Her left hand is less swollen today after ice packs. Had Home health in the past when she had a hip replaced. Not back to baseline for her parents to take care of. - Patient Data Vitals - Most Recent: Last Vital Signs Temp 36.6 C 11/18/18 08:00 Pulse 82 11/18/18 08:00 Resp 18 11/18/18 08:00 BP 151/85 H 11/18/18 08:00 Pulse Ox 98 11/18/18 08:00 Weight - Most Recent: 39.553 kg I&O - Last 24 Hours: Intake & Output 11/17/18 11/18/18 11/18/18 22:59 06:59 14:59 Intake Total 525 665 Balance 525 665 Med Orders - Current: Current Medications Enoxaparin Sodium (Lovenox) 30 mg SUBCUT Q24H [facility] Last Admin: 11/18/18 10:03 Dose: 30 mg Sodium Chloride (Normal Saline) 1,000 mls @ 75 mls/hr IV ASDIRECTED [facility] Last Admin: 11/18/18 01:39 Dose: 75 mls/hr Famotidine 20 mg/ Premix 50 mls @ 200 mls/hr IV BEDTIME [facility] Last Admin: 11/17/18 20:20 Dose: 200 mls/hr Discontinued Medications Famotidine (Pepcid) 20 mg PO BEDTIME [facility] Last Admin: 11/14/18 22:03 Dose: Not Given Sodium Chloride (Normal Saline) 1,000 mls @ 999 mls/hr IV ASDIRECTED [facility] Last Admin: 11/13/18 22:15 Dose: 999 mls/hr Dextrose/Sodium Chloride (Dextrose 5%-1/2 Ns) 1,000 mls @ 100 mls/hr IV ASDIRECTED [facility] Last Admin: 11/14/18 00:56 Dose: 100 mls/hr Midazolam HCl (Versed 2 Mg/Ml Soln) 20 mg PO ONETIME ONE Stop: 11/13/18 20:52 Last Admin: 11/13/18 21:40 Dose: 20 mg Ondansetron HCl (Zofran Odt) 8 mg PO ONETIME ONE Stop: 11/13/18 20:47 Last Admin: 11/13/18 20:47 Dose: 8 mg - Exam General: Alert, Oriented (person), Cooperative, No Acute Distress Lungs: Clear to Auscultation, Normal Respiratory Effort Cardiovascular: Regular Rate, Regular Rhythm GI/Abdominal Exam: Soft, Non-Tender, Abnormal Bowel Sounds (hypoactive/normal) Extremities: No Pedal Edema, Other (left hand minimal swelling on dorsum) - Problem List & Annotations (1) Microencephaly SNOMED Code(s): 5627733 Code(s): Q02 - MICROCEPHALY Status: Acute Current Visit: Yes (2) Dehydration SNOMED Code(s): 85733084 Code(s): E86.0 - DEHYDRATION Status: Resolved Current Visit: Yes Annotation/Comment:: improving (3) Hypernatremia SNOMED Code(s): 069932132 Code(s): E87.0 - HYPEROSMOLALITY AND HYPERNATREMIA Status: Resolved Current Visit: Yes (4) Mental retardation SNOMED Code(s): 999833486 Code(s): F79 - UNSPECIFIED INTELLECTUAL DISABILITIES Status: Chronic Current Visit: Yes (5) GERD (gastroesophageal reflux disease) SNOMED Code(s): 860525568 Code(s): K21.9 - GASTRO-ESOPHAGEAL REFLUX DISEASE WITHOUT ESOPHAGITIS Status: Acute Current Visit: No Qualifiers: Esophagitis presence: with esophagitis Qualified Code(s): K21.0 - Gastro- esophageal reflux disease with esophagitis Annotation/Comment:: improved with IV Pepcid (6) Seizure disorder SNOMED Code(s): 333140190 Code(s): G40.909 - EPILEPSY, UNSP, NOT INTRACTABLE, WITHOUT STATUS EPILEPTICUS Status: Chronic Current Visit: No - Problem List Review Problem List Initiated/Reviewed/Updated: Yes - My Orders Last 24 Hours: My Active Orders 11/18/18 10:52 Consult to Dietary [Consult to Printing Shop Supervisor] [CONS] Routine 11/18/18 10:54 Consult to HH [Consult to Home Health] [CONS] Routine - Plan Plan:: 1. Decrease to NS KVO. 2. Consult Dietary for options for her parents. 3. PT/OT consult for strengthening. 5. Lovenox for VTE prophylaxis. 6. DNR DNI requested by her caregivers, Family does not want anything overly aggressive done 7. Adjust treatments as necessary.
[2018-11-18] MEDS: Famotidine/Normal Saline 20 MG in Premix Bag 1 BAG IV SCH (20:09)
[2018-11-19] MEDS: Sodium Chloride 0.9% 1,000 ML IV SCH (01:25)
[2018-11-19] MEDS ORDERED: Ranitidine 15 MG/ML Syrup ML (473 ML Bottle) PO SCH (10:00)
[2018-11-19] MEDS: Enoxaparin 30 MG/0.3 ML Syringe SUBCUT SCH (10:08)
[2018-11-19 10:26] VITALS: BP 138/78; PULSE 68
--- NOTE | 2018-11-19 11:57 | PCM.DCSUM1 ---
Discharge Summary - Hospital Course HPI Initial Comments: A 62-year-old female patient with microcephaly but has had 2 week history of not eating with decreased consciousness. History is given by her mother which she lives with. Also lives with father. They said about a week ago seen in ER she was having what looked like chest pain and they did evaluation was negative and give her some fluids and sent home. Since then she's been getting more lethargic until yesterday she wouldn't walk. Her normal function is she walks, goes about the house, self dresses up. Mom states she has to help her do her hair and clean herself. A few times in the past she's had problems or she just laid there and didn't eat or drink for 2 weeks and also came out of it. She cannot give me a history. The only thing the parents told the ER doctor she had reflux and she has leg swelling pills now because seems to hurt. Diagnosis: Stroke: No - Discharge Data Discharge Date: 11/19/18 Discharge Disposition: Home, Self-Care 01 Condition: Good - Referral to Home Health Primary Care Physician: Alli Mendes MD - Discharge Diagnosis/Problem(s) (1) Microencephaly SNOMED Code(s): 8580315 ICD Code: Q02 - MICROCEPHALY Status: Acute Current Visit: Yes (2) Dehydration SNOMED Code(s): 64846103 ICD Code: E86.0 - DEHYDRATION Status: Resolved Current Visit: Yes Problem Details: improving (3) Hypernatremia SNOMED Code(s): 470501614 ICD Code: E87.0 - HYPEROSMOLALITY AND HYPERNATREMIA Status: Resolved Current Visit: Yes (4) Mental retardation SNOMED Code(s): 616509926 ICD Code: F79 - UNSPECIFIED INTELLECTUAL DISABILITIES Status: Chronic Current Visit: Yes (5) GERD (gastroesophageal reflux disease) SNOMED Code(s): 481950060 ICD Code: K21.9 - GASTRO-ESOPHAGEAL REFLUX DISEASE WITHOUT ESOPHAGITIS Status: Acute Current Visit: No Problem Details: improved with IV Pepcid Qualifiers: Esophagitis presence: with esophagitis Qualified Code(s): K21.0 - Gastro- esophageal reflux disease with esophagitis (6) Seizure disorder SNOMED Code(s): 875007666 ICD Code: G40.909 - EPILEPSY, UNSP, NOT INTRACTABLE, WITHOUT STATUS EPILEPTICUS Status: Chronic Current Visit: No - Patient Summary/Data Consults: Consultations 11/15/18 09:15 PT Evaluation and Treatment [CONS] Routine Please Evaluate and Treat. PT Reason for Consult: Ambulation Special Instructions: strengthening This query below is only for informational purposes and is not editable. Admission Diagnosis/Problem: Hypernatremia 11/18/18 10:54 Consult to [Consult to Home Health] [CONS] Routine Comment: Physician Instructions: Hospital Course: Patient received IV fluids first D51/2NS then switched to NS slow decreased down to 30ml/hr to keep vein open. Her electrolytes corrected but still not eating or drinking well over the weekend. With weaning of IV fluids and changing Pepcid to IV her oral intake improved. PT/OT assess and did not require any services. Her strength also improved during hospital course until she was at baseline. Will go home with Ranitidine 150 mg 15 mg/ml syrup twice a day so she is not gagging on the Pepcid tablets. Parents are in agreement of discharge, feel she is at her baseline and they can resume her cares. - Patient Instructions Diet: Usual Diet as Tolerated Activity: As Tolerated Showering/Bathing: May Shower Notify Provider of: Fever, Increased Pain, Nausea and/or Vomiting Other/Special Instructions: Follow up with Dr Mendes in 1 week. - Discharge Plan *PRESCRIPTION DRUG MONITORING PROGRAM REVIEWED*: Not Applicable *COPY OF PRESCRIPTION DRUG MONITORING REPORT IN PATIENT LAURA: Not Applicable Prescriptions/Med Rec: Ranitidine [Zantac] 150 mg PO BID 30 Days #600 ml Home Medications: Home Meds Acetaminophen [Tylenol Extra Strength] 500 mg PO TID PRN 11/14/18 [History] Calcium Carb/Vitamin D3/Vit K1 [Viactiv 650 mg-12.5 Mcg Chew] 2 tab PO WITHBREAKFAST 11/14/18 [History] Chewable Multivitamin 1 tab PO WITHBREAKFAST 11/14/18 [History] Mag Hydrox/Aluminum Hyd/Simeth [Antacid Liquid] 30 ml PO Q4H PRN 11/14/18 [ History] Meloxicam 7.5 mg PO DAILY PRN 11/14/18 [History] Ranitidine [Zantac] 150 mg PO BID 30 Days #600 ml 11/19/18 [Rx] Patient Handouts: Fall Prevention in Hospitals, Adult, Venous Thromboembolism Prevention Forms: ED Department Discharge Referrals: Alli Mendes MD [Primary Care Provider] - - Discharge Summary/Plan Comment DC Time >30 min.: Yes - Patient Data Vitals - Most Recent: Last Vital Signs Temp 36.5 C 11/19/18 08:00 Pulse 68 11/19/18 08:00 Resp 16 11/19/18 08:00 BP 138/78 11/19/18 08:00 Pulse Ox 97 11/19/18 08:00 Weight - Most Recent: 39.599 kg Med Orders - Current: Current Medications Enoxaparin Sodium (Lovenox) 30 mg SUBCUT Q24H [facility] [place] Last Admin: 11/19/18 10:08 Dose: 30 mg Sodium Chloride (Normal Saline) 1,000 mls @ 75 mls/hr IV ASDIRECTED [facility] [place] Last Admin: 11/19/18 01:25 Dose: 30 mls/hr Ranitidine HCl (Zantac) 150 mg PO BID [facility] [place] Last Admin: 11/19/18 10:15 Dose: 150 mg Discontinued Medications Famotidine (Pepcid) 20 mg PO BEDTIME [facility] [place] Last Admin: 11/14/18 22:03 Dose: Not Given Sodium Chloride (Normal Saline) 1,000 mls @ 999 mls/hr IV ASDIRECTED [facility] [place] Last Admin: 11/13/18 22:15 Dose: 999 mls/hr Dextrose/Sodium Chloride (Dextrose 5%-1/2 Ns) 1,000 mls @ 100 mls/hr IV ASDIRECTED [facility] [place] Last Admin: 11/14/18 00:56 Dose: 100 mls/hr Famotidine 20 mg/ Premix 50 mls @ 200 mls/hr IV BEDTIME [facility] [place] Last Admin: 11/18/18 20:09 Dose: 200 mls/hr Midazolam HCl (Versed 2 Mg/Ml Soln) 20 mg PO ONETIME ONE Stop: 11/13/18 20:52 Last Admin: 11/13/18 21:40 Dose: 20 mg Ondansetron HCl (Zofran Odt) 8 mg PO ONETIME ONE Stop: 11/13/18 20:47 Last Admin: 11/13/18 20:47 Dose: 8 mg - Exam General: Reports: Alert, Oriented (person), Cooperative, No Acute Distress Lungs: Reports: Clear to Auscultation, Normal Respiratory Effort Cardiovascular: Reports: Regular Rate, Regular Rhythm GI/Abdominal Exam: Normal Bowel Sounds, Soft, Non-Tender, No Distention Extremities: No Pedal Edema
== END 2018-11-19 12:35 | disposition home or self-care (01) | DRG 641 ==
LOC: FB.ED 19:52 → FB.MS 23:49 → OBSVTOIN 11-14 09:53
PROVIDERS: ADMIT Family Medicine; ATTEND Family Medicine
DX: E86.0 Dehydration (principal); E87.0 Hyperosmolality and hypernatremia; Z96.649 Presence of unspecified artificial hip joint; H54.7 Unspecified visual loss; Z51.5 Encounter for palliative care; R62.50 Unspecified lack of expected normal physiological development in childhood; Z66 Do not resuscitate; E83.52 Hypercalcemia; M41.9 Scoliosis, unspecified; F79 Unspecified intellectual disabilities; K21.9 Gastro-esophageal reflux disease without esophagitis; G40.909 Epilepsy, unspecified, not intractable, without status epilepticus; Q02 Microcephaly; Z79.899 Other long term (current) drug therapy; Z88.8 Allergy status to other drugs, medicaments and biological substances
CPT/HCPCS: 36415 ×2; 70450; 80048; 80053; 81001; 82550; 83605; 83935; 84300; 84484; 85025; 86140; 93005; 96360; 96361; 96372; 99285; A9270 ×2; G0378 ×2; J1650; J7030 ×2; 84295; 97161-GP

== ENCOUNTER 2019-12-28 09:38 | Inpatient (IN) | payer MEDICARE, BC, MEDICAID ==
--- NOTE | 2019-12-28 10:11 | EDM.PDOC ---
ED HPI GENERAL MEDICAL PROBLEM - General Chief Complaint: General Stated Complaint: GERD Time Seen by Provider: 12/28/19 10:08 Source of Information: Reports: Family (Patient's mother.) History Limitations: Reports: Other (Patient is mentally challenged and cannot provide me with any radiation. The patient's mother provides me with all of the history.) - History of Present Illness INITIAL COMMENTS - FREE TEXT/NARRATIVE: 64-year-old mentally retarded female who is brought to the emergency department via private vehicle by her mother (who is the patient's primary caregiver) with reports that for the past 2 weeks, the patient has been not eating well and has had decreasing levels of responsiveness and interaction. Symptoms have gotten progressively worse with time but particularly over the past 4 days. Mother reports that the patient had a similar-type issue about a year ago and had to be admitted for IV fluids and treatment of GERD esophagitis. The patient at the onset of this was complaining of upper chest and neck pain according to the mother. Those complaints have Broderick but the patient also has had a decrement in her ability to communicate complaints as well. She has had no fevers or chills. There has been no vomiting. Over the past 1-2 days, the patient has not really wanted to take anything by mouth and when she does take anything she spits it back out. She has had urine output but it has been decreased. She had a large bowel movement about 3 or 4 days ago and this is her normal. There was no blood in the bowel movement. The patient appears to be at a level 8/10 discomfort by Rom martin, Because of her mental retardation and condition at this point, cannot provide me with any information. Information that I get is from the patient's mother her primary caregiver. No fevers or chills. No nasal congestion. No known exposure to anyone with COVID 19. The patient does have relatives who have Covid 19 but she apparently has not been exposed to them. This is really the only history that I can obtain. The patient didn't have a barium esophagram on Sunday which showed no evidence of esophageal obstruction. There are no other associated signs or symptoms. There are no other modifying factors. I discussed CODE STATUS with the patient's mother and the patient is CPR with compressions only and DO NOT INTUBATE Onset: Other (2 weeks) Duration: Getting Worse Location: Reports: Chest Quality: Reports: Other (Unknown) Severity: Moderate (to severe) Improves with: Reports: None Worsens with: Reports: None Context: Reports: Other (As above.) Associated Symptoms: Reports: Weakness Treatments CT SCAN SPECIAL PROCEDURES TECHNOLOGIST: Reports: Acetaminophen, Other (see below) (Antacids) - Related Data Allergies Allergy/AdvReac Type Severity Reaction Status Date / Time lactose Allergy Diarrhea Verified 12/28/19 10:15 metoclopramide [From Reglan] Allergy Vomiting Verified 12/28/19 10:15 morphine Allergy Rash Verified 12/28/19 10:15 scopolamine Allergy Agitation Verified 12/28/19 10:15 Home Meds: Home Meds Acetaminophen [Tylenol Extra Strength] 500 mg PO TID PRN 11/14/18 [History] Calcium Carb/Vitamin D3/Vit K1 [Viactiv 650 mg-12.5 Mcg Chew] 2 tab PO WITHBREAKFAST 11/14/18 [History] Chewable Multivitamin 1 tab PO WITHBREAKFAST 11/14/18 [History] Meloxicam 7.5 mg PO DAILY PRN 11/14/18 [History] Lansoprazole [Prevacid] 30 mg PO DAILY 12/28/19 [History] Past Medical History HEENT History: Reports: Impaired Vision, Other (See Below) 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 Gastrointestinal History: Reports: GERD, Other (See Below) Other Gastrointestinal History: lactose intolarant Musculoskeletal History: Reports: Other (See Below) Other Musculoskeletal History: SCOLIOSIS Neurological History: Reports: Other (See Below) Other Neuro History: MICROCEPHALY Psychiatric History: Reports: Developmental Delay (With mental retardation) - Infectious Disease History Infectious Disease History: Reports: None - Past Surgical History HEENT Surgical History: Reports: Oral Surgery GI Surgical History: Reports: Other (See Below) (Surgery for prolapsed rectum) Musculoskeletal Surgical History: Reports: Hip Replacement Other Dermatological Surgeries/Procedures: Pilonidal cystectomy Social & Family History - Family History Cardiac: Reports: Heart Failure Musculoskeletal: Reports: Back pain, Chronic Endocrine/Metabolic: Reports: Diabetes, type II Hematologic: Reports: Other (See Below) Other Hematologic Family History: unknown blood disorder - Tobacco Use Tobacco Use Status *Q: Never Tobacco User - Caffeine Use Caffeine Use: Reports: None - Alcohol Use Alcohol Use History: No - Living Situation & Occupation Living situation: Reports: Single Occupation: Disabled Social History Comment: Lives with her mother and father who are her primary caregivers. ED ROS GENERAL - Review of Systems Review Of Systems: See Below Constitutional: Reports: No Symptoms HEENT: Reports: Other (Dry mouth) Respiratory: Reports: No Symptoms Cardiovascular: Reports: Chest Pain GI/Abdominal: Denies: Diarrhea, Vomiting : Reports: Other (Decreased urine output) Musculoskeletal: Reports: No Symptoms (No complaints) Skin: Reports: No Symptoms. Denies: Rash Neurological: Reports: Weakness, Other (Decreased responsiveness.) Hematologic/Lymphatic: Reports: No Symptoms Immunologic: Reports: No Symptoms ED EXAM, GENERAL - Physical Exam Exam: See Below Exam Limited By: No Limitations General Appearance: Lethargic, Moderate Distress, Thin Eye Exam: Bilateral Eye: Normal Inspection Ears: Normal External Exam, Hearing Grossly Normal Ear Exam: Bilateral Ear: Auricle Normal Nose: Normal Inspection Throat/Mouth: Other (Try mucous membranes) Head: Atraumatic, Other Neck: Normal Inspection, Supple, Non-Tender, Full Range of Motion Respiratory/Chest: No Respiratory Distress, Lungs Clear, Normal Breath Sounds, No Accessory Muscle Use Cardiovascular: Normal Peripheral Pulses, Regular Rate, Rhythm, No Murmur. No: Systolic Murmur Peripheral Pulses: 2+: Radial (L), Radial (R), Dorsalis Pedis (L), Dorsalis Pedis (R) GI/Abdominal: Normal Bowel Sounds, Soft, Non-Tender, Other (Scaphoid) Back Exam: Normal Inspection, Full Range of Motion Extremities: Normal Inspection, No Pedal Edema, Normal Capillary Refill Neurological: Disoriented, Slow to Respond Skin Exam: Warm, Dry, Intact, Normal Color, No Rash, Cyanosis #1 Interpretation EKG Date: 12/28/19 Time: 10:45 Rhythm: NSR Rate (Beats/Min): 88 [place]: Normal P-Wave: Present QRS: Normal ST-T: Normal QT: Normal Comparison: No Change (No change from EKG performed on 11/13/2018.) Course - Vital Signs Last Recorded V/S: Last Vital Signs Temp 36.8 C 12/28/19 13:06 Pulse 80 12/28/19 13:06 Resp 16 12/28/19 13:06 BP 146/96 H 12/28/19 13:06 Pulse Ox 97 12/28/19 13:06 - Orders/Labs/Meds Orders: Active Orders 24 hr Category Date Time Status Admission Status [Patient Status] [ADT] Routine ADT 12/28/19 11:55 Active EKG Documentation Completion [RC] ASDIRECTED Care 12/28/19 10:32 Active NPO Now [Nothing per Oral Now Diet] [DIET] Diet 12/28/19 Lunch Ordered Chest 1V Frontal [CR] Stat Exams 12/28/19 10:30 Taken UA W/MICROSCOPIC [URIN] Stat Lab 12/28/19 10:30 Ordered Sodium Chloride 0.9% [Normal Saline] 1,000 ml Med 12/28/19 10:45 Active IV ASDIRECTED Sodium Chloride 0.9% [Saline Flush] Med 12/28/19 10:30 Active 10 ml FLUSH ASDIRECTED PRN Peripheral IV Insertion Adult [OM.PC] Routine Oth 12/28/19 10:30 Ordered Resuscitation Status Stat Resus Stat 12/28/19 12:02 Ordered EKG 12 Lead [EK] Routine Ther 12/28/19 10:30 Ordered Medication Orders Famotidine (Pepcid) 20 mg IVPUSH Q24H BLANE Sodium Chloride (Normal Saline) 1,000 mls @ 100 mls/hr IV ASDIRECTED BLANE Last Admin: 12/28/19 11:50 Dose: 100 mls/hr Documented by: ANKUR Sodium Chloride (Saline Flush) 10 ml FLUSH ASDIRECTED PRN PRN Reason: Keep Vein Open Last Admin: 12/28/19 11:00 Dose: 10 ml Documented by: ANKUR Labs: Laboratory Tests 12/28/19 12/28/19 12/28/19 Range/Units 11:15 11:25 11:25 WBC 5.9 (4.5-12.0) X10-3/uL RBC 4.56 (3.23-5.20) x10(6)uL Hgb 13.4 (11.5-15.5) g/dL Hct 40.1 (30.0-51.3) % MCV 87.8 (80-96) fL MCH 29.4 (27.7-33.6) pg MCHC 33.4 (32.2-35.4) g/dL RDW 13.5 (11.5-15.5) % Plt Count 235 (125-369) X10(3)uL MPV 8.7 (7.4-10.4) fL Neut % (Auto) 78.5 (46-82) % Lymph % (Auto) 13.5 (13-37) % [place] % (Auto) 6.4 (4-12) % Eos % (Auto) 0 L (1.0-5.0) % Baso % (Auto) 2 (0-2) % Neut # (Auto) 4.6 (1.6-8.3) # Lymph # (Auto) 0.8 (0.6-5.0) # [place] # (Auto) 0.4 (0.0-1.3) # Eos # (Auto) 0.0 (0.0-0.8) # Baso # (Auto) 0.1 (0.0-0.2) # Sodium 147 H (135-145) mmol/L Potassium 3.7 (3.5-5.3) mmol/L Chloride 107 (100-110) mmol/L Carbon Dioxide 29 (21-32) mmol/L BUN 29 H D (7-18) mg/dL Creatinine 1.0 (0.55-1.02) mg/dL Est Cr Clr Drug Dosing 35.66 mL/min Estimated GFR (MDRD) 55 L (>60) BUN/Creatinine Ratio 29.0 H (9-20) Glucose 120 H (80-116) mg/dL Calcium 10.7 H (8.6-10.2) mg/dL Magnesium 2.1 (1.8-2.5) mg/dL Total Bilirubin 0.4 (0.1-1.3) mg/dL AST 9 D (5-25) IU/L ALT 16 D (12-36) U/L Alkaline Phosphatase 102 (56-112) IU/L Troponin I (4.0-60.3) pg/mL C-Reactive Protein (0.5-0.9) mg/dL Total Protein 7.1 (6.0-8.0) g/dL Albumin 3.6 (3.2-4.6) g/dL Globulin 3.5 g/dL Albumin/Globulin Ratio 1.0 SARS-CoV-2 RNA (CORRIE) Negative (NEGATIVE) 12/28/19 Range/Units 11:25 WBC (4.5-12.0) X10-3/uL RBC (3.23-5.20) x10(6)uL Hgb (11.5-15.5) g/dL Hct (30.0-51.3) % MCV (80-96) fL MCH (27.7-33.6) pg MCHC (32.2-35.4) g/dL RDW (11.5-15.5) % Plt Count (125-369) X10(3)uL MPV (7.4-10.4) fL Neut % (Auto) (46-82) % Lymph % (Auto) (13-37) % [place] % (Auto) (4-12) % Eos % (Auto) (1.0-5.0) % Baso % (Auto) (0-2) % Neut # (Auto) (1.6-8.3) # Lymph # (Auto) (0.6-5.0) # [place] # (Auto) (0.0-1.3) # Eos # (Auto) (0.0-0.8) # Baso # (Auto) (0.0-0.2) # Sodium (135-145) mmol/L Potassium (3.5-5.3) mmol/L Chloride (100-110) mmol/L Carbon Dioxide (21-32) mmol/L BUN (7-18) mg/dL Creatinine (0.55-1.02) mg/dL Est Cr Clr Drug Dosing mL/min Estimated GFR (MDRD) (>60) BUN/Creatinine Ratio (9-20) Glucose (80-116) mg/dL Calcium (8.6-10.2) mg/dL Magnesium (1.8-2.5) mg/dL Total Bilirubin (0.1-1.3) mg/dL AST (5-25) IU/L ALT (12-36) U/L Alkaline Phosphatase (56-112) IU/L Troponin I 4.4 (4.0-60.3) pg/mL C-Reactive Protein < 0.2 L (0.5-0.9) mg/dL Total Protein (6.0-8.0) g/dL Albumin (3.2-4.6) g/dL Globulin g/dL Albumin/Globulin Ratio SARS-CoV-2 RNA (CORRIE) (NEGATIVE) Meds: Medications Generic Name Dose Route Start Last Admin Trade Name Freq PRN Reason Stop Dose Admin Famotidine 20 mg 12/29/19 11:00 Pepcid IVPUSH Q24H BLANE Sodium Chloride 1,000 mls @ 100 mls/hr 12/28/19 10:45 12/28/19 11:50 Normal Saline IV 100 mls/hr ASDIRECTED BLANE Administration Sodium Chloride 10 ml 12/28/19 10:30 12/28/19 11:00 Saline Flush FLUSH 10 ml ASDIRECTED PRN Administration Keep Vein Open Discontinued Medications Generic Name Dose Route Start Last Admin Trade Name Freq PRN Reason Stop Dose Admin Sodium Chloride 500 mls @ 999 mls/hr 12/28/19 10:33 12/28/19 11:02 Normal Saline IV 12/28/19 11:03 999 mls/hr .BOLUS ONE Administration Famotidine 20 mg/ Premix 50 mls @ 200 mls/hr 12/28/19 10:33 12/28/19 11:05 IV 12/28/19 10:34 200 mls/hr ONETIME ONE Administration - Radiology Interpretation Free Text/Narrative:: Portable chest x-ray showed no acute disease. - Re-Assessments/Exams Free Text/Narrative Re-Assessment/Exam: 12/28/19 11:50: Patient's blood tests show mild hypernatremia and hypercalcemia. She also has an elevated BUN and creatinine. The chest x-ray and EKG are unremarkable. She has received half of her normal saline bolus and still has decreased responsiveness. She has also received Pepcid 20 mg IV. In reviewing the patient's previous record and the admission from November 2018, this is an almost identical presentation and, as what happened before, the patient will need admission for IV fluid hydration and IV H2 blockers or proton pump inhibitors. Because of her severe dysphagia, she will need IV support through this and rehydration. This plan of care will require at least 2 midnight hospital stay. I have discussed this with the patient's mother and she is in agreement with this plan. I will call and discuss the patient's case with Dr. Jin in regard to admission to [facility]. 12/28/19 12:00: I discussed the patient's case with Dr. Jin, hospitalist, and he will admit the patient. He will be seeing the patient on the floor. Departure - Departure Time of Disposition: 12:03 Disposition: Admitted As Inpatient 64 Condition: Fair Clinical Impression: Severe dehydration, Rapidly progressive weakness, Encephalopathy acute Dysphagia Qualifiers: Dysphagia type: unspecified Qualified Code(s): R13.10 - Dysphagia, unspecified - Discharge Information Sepsis Event Note (ED) - Focused Exam Vital Signs: Vital Signs Temp Pulse Resp BP Pulse Ox 12/28/19 10:30 90 18 142/82 H 98 12/28/19 09:43 36.3 C 96 20 159/119 H 98 - My Orders Last 24 Hours: My Active Orders 12/28/19 Lunch NPO Now [Nothing per Oral Now Diet] [DIET] Chest 1V Frontal [CR] Stat UA W/MICROSCOPIC [URIN] Stat Sodium Chloride 0.9% [Saline Flush] 10 ml FLUSH ASDIRECTED PRN Peripheral IV Insertion Adult [OM.PC] Routine EKG 12 Lead [EK] Routine 12/28/19 10:32 EKG Documentation Completion [RC] ASDIRECTED 12/28/19 10:45 Sodium Chloride 0.9% [Normal Saline] 1,000 ml IV ASDIRECTED 12/28/19 11:55 Admission Status [Patient Status] [ADT] Routine 12/28/19 12:02 Resuscitation Status Stat - Assessment/Plan Last 24 Hours: My Active Orders 12/28/19 Lunch NPO Now [Nothing per Oral Now Diet] [DIET] Chest 1V Frontal [CR] Stat UA W/MICROSCOPIC [URIN] Stat Sodium Chloride 0.9% [Saline Flush] 10 ml FLUSH ASDIRECTED PRN Peripheral IV Insertion Adult [OM.PC] Routine EKG 12 Lead [EK] Routine 12/28/19 10:32 EKG Documentation Completion [RC] ASDIRECTED 12/28/19 10:45 Sodium Chloride 0.9% [Normal Saline] 1,000 ml IV ASDIRECTED 12/28/19 11:55 Admission Status [Patient Status] [ADT] Routine 12/28/19 12:02 Resuscitation Status Stat
[2019-12-28] MEDS ORDERED: Sodium Chloride 0.9% 10 ML Syringe FLUSH PRN (10:30)
[2019-12-28] MEDS ORDERED: Sodium Chloride 0.9% 500 ML IV ONE (10:33)
[2019-12-28] MEDS ORDERED: Famotidine/Normal Saline 20 MG in Premix Bag 1 BAG IV ONE (10:33)
[2019-12-28] MEDS: Sodium Chloride 0.9% 1,000 ML IV SCH ×2 (11:50→21:58)
--- NOTE | 2019-12-28 14:54 | HP ---
ADMISSION DATE: 12/28/2019 HISTORY OF PRESENT ILLNESS: Erlinda is a 64-year-old woman with severe congenital microcephaly, who is cared for at home by her mother. Her mother noticed that approximately 10 days to 2 weeks ago she began having slightly lower oral intake. This had been a pattern in past years as well, so she started pushing fluids. She was seen by Dr. Mendes in the office on December 23 four days ago, and at that time, an esophagram was ordered and completed showing no esophageal motility abnormalities or obstruction. The patient continued to decline and mother was just feeding her Gatorade with a teaspoon. She eventually stopped taking that as well and has significantly lowered level of consciousness. She has not had fever, chills, sweats, or symptoms of recent infection. She has indicated that she has some discomfort in the upper chest and neck area and her previous 2 admissions were for swallowing difficulty related to GERD and apparently successfully treated with IV fluids and IV Pepcid. Erlinda is unable to give me a reliable history. History is obtained from her mother, Dr. Pino's ER note, and her [facility] chart. PAST MEDICAL HISTORY: Congenital microcephaly with intellectual disability. She also has had a left hip arthroplasty in 2013, osteoarthritis, and hospitalizations for GERD. She also has lorazepam on a p.r.n. basis for anxiety for interventions and procedures. MEDICATIONS: 1. Prevacid 30 mg liquid daily. 2. Lorazepam 1 tablet preprocedure p.r.n. 3. Tylenol p.r.n. 4. Meloxicam 7.5 mg daily. 5. Multivitamin 1 daily. 6. Viactiv 1 daily. 7. Tylenol p.r.n. ALLERGIES: Listed as lactose, Reglan, morphine, and scopolamine. HABITS: Nonsmoker and nondrinker. FAMILY AND SOCIAL HISTORY: The patient lives at home with her elderly mother who says she does all of her cares. REVIEW OF SYSTEMS: Obtained from the patient's mother and the ER record. No recent fever, chills, or symptoms of infection. No apparent changes in hearing or vision, cough, dyspnea, palpitations, abdominal pain, diarrhea, swelling, or skin rash. PHYSICAL EXAMINATION: GENERAL: She is examined lying in her bed in the left lying position. VITAL SIGNS: Blood pressure 170/100, pulse 83 and regular, respirations 20, and O2 saturation 98% on room air, temperature 97.2. Weight 83 pounds. SKIN: Shows no rash or sign of trauma. Tongue is dry, however. LUNGS: Have good air movement to the bases without consolidation. HEART: Regular with a 2/6 systolic murmur over the aortic area. ABDOMEN: Normal bowel sounds. Soft and nontender. No organomegaly. EXTREMITIES: Showed no edema at the ankles. LABORATORY DATA: White count 5900, hemoglobin 13.4. Sodium 134, potassium 3.7, BUN 29, creatinine 1.0. Liver enzymes normal. SARS is negative. ASSESSMENT: 1. Decreased oral intake. Indication for upper chest and neck area discomfort, likely related to esophagitis/gastroesophageal reflux disease. 2. Osteoarthritis. 3. Profound intellectual disability secondary to microcephaly. PLAN: She is admitted. We will rehydrate her with IV fluids and use IV Pepcid. We will also hold her meloxicam and anticipate a 48 to 72 hour acute hospital stay followed by plans to return home with her mother when improved enough. We will also continue to provide palliative care measures for Erlinda's underlying severe disabilities. /[id number] RUBY/RON
[2019-12-29] MEDS: Sodium Chloride 0.9% 1,000 ML IV SCH (07:45)
[2019-12-29] MEDS ORDERED: Sodium Chloride 0.9% 1,000 ML IV SCH (07:45)
--- NOTE | 2019-12-29 10:03 | CR ---
INDICATION: Chest pain. CHEST, ONE VIEW: Portable AP upright view of the chest 12/28/19 was compared with 11/27/15 and again revealed hyperaeration suggesting COPD. The heart did not appear grossly enlarged. A definite active infiltrate or effusion was not identified. The aortic arch is minimally prominent. Bilateral healed clavicular fractures are noted. IMPRESSION: No acute process. MTDD
[2019-12-29] MEDS ORDERED: Famotidine 20 MG/2 ML SDV IVPUSH SCH (11:00)
--- NOTE | 2019-12-29 11:02 | PN ---
DATE SEEN: 12/29/2019 HISTORY: Erlinda is a 64-year-old woman with congenital microcephaly and severe cognitive disability, who was admitted with apparent epigastric and upper esophageal area discomfort, decline in oral intake, and weakness. She was felt to have a recurrence of previous esophagitis. An esophagram ordered from the clinic last week showed no obstructions. She has been on IV fluid overnight and has tolerated this well. She is more alert this morning. She has been n.p.o. overnight. PHYSICAL EXAMINATION: GENERAL: She looks more awake and alert. She is asking for water. VITAL SIGNS: Blood pressure 145/85, pulse 77, temp 97, O2 sat 97% on room air. SKIN: Shows no rash or trauma. LUNGS: Clear to the bases. HEART: Regular without murmur or gallop. ABDOMEN: Normal bowel sounds. Soft and nontender. EXTREMITIES: Show no edema. ASSESSMENT: Esophagitis. PLAN: We will continue her IV famotidine. We will advance her to clear liquid diet and increase as tolerated. I anticipate return to her home where she lives with her mother, once improved enough. I anticipate another 24 to 48 hours of acute hospital stay. /[id number] RUBY/RON
[2019-12-30] MEDS: Famotidine 20 MG Tab PO SCH (09:11)
--- NOTE | 2019-12-30 12:55 | PN ---
DATE SEEN: 12/30/2019 HISTORY: Holly is a 64-year-old, mentally retarded, woman with congenital microcephaly, who was admitted with severe nausea, vomiting, lethargy, and weakness. On admission, her electrolytes were satisfactory. She was, however, extremely weak, lethargic, and mental status was extremely suppressed. She was treated with IV fluids and IV famotidine. Her level of alertness improved some by yesterday afternoon. Her IV infiltrated and was not able to be restarted, so her hydration was continued with p.o. fluids. This morning, she opens her eyes to voice and will say one-word responses. PHYSICAL EXAMINATION: VITAL SIGNS: Blood pressure 128/84, pulse 84, respirations 16, temperature 97.2. GENERAL: She is still somewhat lethargic but does open her eyes to voice. MOUTH: Dry. LUNGS: Clear. HEART: Regular. ABDOMEN: Normal bowel sounds. These sound more active today than yesterday. Soft. No apparent tenderness. EXTREMITIES: Show no edema at the ankles. ASSESSMENT: Extreme dehydration, nausea and vomiting, likely gastritis/esophagitis. PLAN: She is converted to p.o. famotidine. We will continue to push p.o. fluids at this time and reinsert her IV if she is not able to maintain hydration. Anticipate discharge to home within 24 to 48 hours. /[id number] RUBY/RON
[2019-12-30] MEDS ORDERED: Sodium Chloride 0.9% 10 ML Syringe FLUSH PRN (13:37)
[2019-12-30] MEDS ORDERED: LORazepam 1 MG Tab PO PRN (13:38)
[2019-12-30] MEDS: Sodium Chloride 0.9% 1,000 ML IV SCH (14:46)
[2019-12-31] MEDS: Sodium Chloride 0.9% 1,000 ML IV SCH ×2 (00:39→21:22)
[2019-12-31] MEDS ORDERED: Pantoprazole 40 MG Vial IVPUSH ONE (08:46)
[2019-12-31] MEDS: Famotidine 20 MG Tab PO SCH (09:05)
--- NOTE | 2019-12-31 13:00 | PN ---
DATE SEEN: 12/31/2019 HISTORY: Erlinda is a 64-year-old woman who is cared for by her mother at home with a history of congenital microcephaly and severe cognitive dysfunction. She was admitted on 12/28/2019 because of vomiting, weakness, poor oral intake, lethargy. She was treated with IV fluids and seemed to perk up some the next day. However, once her IV was held, she was unable to maintain hydration or nutrition orally. She had a difficult night with hallucinations, crying out and has not been eating or drinking well yet. PHYSICAL EXAMINATION: GENERAL: She is lying on the right side in the position. VITAL SIGNS: Blood pressure 143/80, pulse 75 and regular, respirations 18, O2 saturation 99% on room air, temp 98. MOUTH: Dry. LUNGS: Clear. HEART: Regular without murmur or gallop. ABDOMEN: Normal bowel sounds. Soft and nontender. EXTREMITIES: Show no edema. ASSESSMENT: 1. Poor oral intake. 2. Dehydration. 3. Nausea, consistent with previous episodes of esophagitis. 4. Microcephaly with severe cognitive deficits, congenital. PLAN: We will continue the oral famotidine, add an additional dose of IV Protonix. Continue IV fluid and push oral nutrition. I anticipate an additional 24 to 48 hours of acute hospital stay followed by plans for return to her home if able. /[id number] RUBY/RON
[2020-01-01] MEDS: Sodium Chloride 0.9% 1,000 ML IV SCH ×2 (07:19→22:11)
[2020-01-01] MEDS: Famotidine 20 MG Tab PO SCH (09:18)
[2020-01-01] MEDS: Potassium Chloride 20 MEQ Packet PO SCH (09:18)
[2020-01-01] MEDS ORDERED: LOPERAMIDE 1 MG/7.5 ML PO PRN (09:57)
--- NOTE | 2020-01-01 11:33 | PN ---
DATE SEEN: 01/01/2020 HISTORY: Holly is a 64-year-old mentally retarded woman who was admitted with nausea, vomiting, and dehydration. She has been treated with IV fluids for rehydration and Pepcid and Protonix for suspected esophagitis. She has been able to take small sips of liquids, but not enough to keep her hydrated and has continued to need IV fluid. She had diarrhea for yesterday and overnight. No stools this morning yet. PHYSICAL EXAMINATION: GENERAL: She is awake, alert, and whining, lying on her left side. She just returned from the bathroom. LUNGS: Clear. HEART: Regular. ABDOMEN: Has bowel sounds present. Soft. No apparent tenderness. EXTREMITIES: Show no edema. LABORATORY DATA: Hemoglobin 13.1, white count 6300. Potassium low at 3.2. ASSESSMENT: 1. Nausea, vomiting, diarrhea, question gastroenteritis. 2. Hypokalemia. 3. Microcephaly with severe cognitive deficits. PLAN: We will decrease her IV fluid rate, push oral fluids, replace her potassium and also begin Imodium for loose stools. I anticipate another 24 to 48 hours of hospital stay followed by return to her home if able. /[id number] RUBY/RON
[2020-01-01] MEDS ORDERED: Loperamide 1 MG/7.5 ML 7.5 ML UD Cup PO ONE (11:52)
[2020-01-02] MEDS ORDERED: Meloxicam 7.5 MG Tab PO PRN (09:29)
[2020-01-02] MEDS: Famotidine 20 MG Tab PO SCH (09:53)
[2020-01-02] MEDS: NS + KCl 20mEq/L 1,000 ML IV SCH ×4 (10:04→19:30)
[2020-01-02] MEDS: Pantoprazole 40 MG Vial IVPUSH SCH (10:04)
--- NOTE | 2020-01-02 10:07 | PCM.PN ---
- General Info Date of Service: 01/02/20 Admission Dx/Problem (Free Text): The parents state that she still very sedated. She did wake up for a little bit but then went back to sleep. She normally walks in helps load the deaf interpreter and set the table. She did decrease oral intake for about 20 days. Doesn't seem to be improving. They've reported no fevers, cough. She did have diarrhea but has had no stool today. - Patient Data Vitals - Most Recent: Last Vital Signs Temp 98.1 F 01/02/20 03:00 Pulse 74 01/02/20 03:00 Resp 20 01/02/20 03:00 BP 139/83 01/02/20 03:00 Pulse Ox 96 01/02/20 03:00 Weight - Most Recent: 83 lb I&O - Last 24 Hours: Intake & Output 01/01/20 01/02/20 01/02/20 22:59 06:59 14:59 Intake Total 300 400 Output Total 400 Balance 300 400 -400 Med Orders - Current: Current Medications Famotidine (Pepcid) 20 mg PO DAILY [facility] Last Admin: 01/02/20 09:53 Dose: Not Given Documented by: Potassium Chloride/Sodium Chloride (Normal Saline With 20 Meq Kcl) 1,000 mls @ 250 mls/hr IV Q4H [facility] Meloxicam (Mobic) 7.5 mg PO DAILY PRN PRN Reason: back pain Loperamide 1mg/7.5ml (Oral Solution) 0 each PO TID PRN PRN Reason: Diarrhea Last Admin: 01/01/20 11:52 Dose: 1 each Documented by: Pantoprazole Sodium (Protonix Iv) 40 mg IVPUSH Q24H [facility] Potassium Chloride (Klor-Con) 20 meq PO DAILY [facility] Last Admin: 01/01/20 09:18 Dose: 20 meq Documented by: Sodium Chloride (Saline Flush) 10 ml FLUSH ASDIRECTED PRN PRN Reason: Keep Vein Open Last Admin: 12/30/19 14:40 Dose: 10 ml Documented by: Discontinued Medications Famotidine (Pepcid) 20 mg IVPUSH Q24H [facility] Last Admin: 12/29/19 10:56 Dose: 20 mg Documented by: Sodium Chloride (Normal Saline) 500 mls @ 999 mls/hr IV .BOLUS ONE Stop: 12/28/19 11:03 Last Admin: 12/28/19 11:02 Dose: 999 mls/hr Documented by: Sodium Chloride (Normal Saline) 1,000 mls @ 100 mls/hr IV ASDIRECTED [facility] Last Infusion: 12/29/19 07:45 Dose: Infused Documented by: Famotidine 20 mg/ Premix 50 mls @ 200 mls/hr IV ONETIME ONE Stop: 12/28/19 10:34 Last Admin: 12/28/19 11:05 Dose: 200 mls/hr Documented by: Sodium Chloride (Normal Saline) 1,000 mls @ 75 mls/hr IV ASDIRECTED [facility] Last Admin: 12/29/19 07:45 Dose: 75 mls/hr Documented by: Sodium Chloride (Normal Saline) 1,000 mls @ 50 mls/hr IV ASDIRECTED [facility] Last Admin: 01/01/20 22:11 Dose: 50 mls/hr Documented by: Loperamide HCl (Loperamide) 2 mg PO .STK-MED ONE Stop: 01/01/20 11:53 Lorazepam (Ativan) 1 mg PO ONETIME PRN PRN Reason: Agitation Pantoprazole Sodium (Protonix Iv) 40 mg IVPUSH ONETIME ONE Stop: 12/31/19 08:47 Last Admin: 12/31/19 09:07 Dose: 40 mg Documented by: Sodium Chloride (Saline Flush) 10 ml FLUSH ASDIRECTED PRN PRN Reason: Keep Vein Open Last Admin: 12/28/19 11:00 Dose: 10 ml Documented by: - Exam General: Alert (Wakes up little bit when I examined her but other than she goes back to sleeping), Cooperative. No: Oriented Neck: Supple Lungs: Clear to Auscultation, Normal Respiratory Effort Cardiovascular: Regular Rate, Regular Rhythm, No Murmurs GI/Abdominal Exam: Soft, Non-Tender, No Distention Extremities: No Pedal Edema Sepsis Event Note - Evaluation Sepsis Screening Result: No Definite Risk - Focused Exam Vital Signs: Vital Signs Temp Pulse Resp BP Pulse Ox 01/02/20 03:00 98.1 F 74 20 139/83 96 - Problem List & Annotations (1) Palliative care status SNOMED Code(s): 611155365 Code(s): Z51.5 - ENCOUNTER FOR PALLIATIVE CARE Status: Acute Current Visit: Yes (2) Rapidly progressive weakness SNOMED Code(s): 93717385 Code(s): R53.1 - WEAKNESS Status: Acute Current Visit: Yes (3) Severe dehydration SNOMED Code(s): 291712873 Code(s): E86.0 - DEHYDRATION Status: Acute Current Visit: Yes (4) Microencephaly SNOMED Code(s): 3988429 Code(s): Q02 - MICROCEPHALY Status: Acute Current Visit: No (5) Mental retardation SNOMED Code(s): 002449913 Code(s): F79 - UNSPECIFIED INTELLECTUAL DISABILITIES Status: Chronic Current Visit: No (6) Hypernatremia SNOMED Code(s): 199304074 Code(s): E87.0 - HYPEROSMOLALITY AND HYPERNATREMIA Status: Resolved Current Visit: No - Problem List Review Problem List Initiated/Reviewed/Updated: Yes - My Orders Last 24 Hours: My Active Orders 01/02/20 09:29 Meloxicam [Mobic] 7.5 mg PO DAILY PRN 01/02/20 09:30 NS + KCl 20mEq/L [Normal Saline with 20 mEq KCl] 1,000 ml IV Q4H 01/02/20 09:45 Pantoprazole [ProTONIX IV] 40 mg IVPUSH Q24H 01/02/20 10:02 Resuscitation Status Routine 01/03/20 05:11 CBC WITH AUTO DIFF [HEME] AM 01/03/20 06:00 BASIC METABOLIC PANEL,BMP [CHEM] AM - Plan Plan:: 1. Change the fluids to normal saline with KCl. Increase the rate to 250 mL an hour for at least 1 L maybe 2. Watch for signs of fluid overload. 2. Discussed resuscitation status. They only had her on CPR for [facility]. Will make her DNR and that's what they want today. 3. Oral intake as tolerated. 4. Restarted her meloxicam 5. CBC and BMP in the a.m.
[2020-01-02] MEDS: Potassium Chloride 20 MEQ Packet PO SCH ×2 (10:11→14:16)
--- NOTE | 2020-01-02 16:30 | PCM.SN.2 ---
- Free Text/Narrative Note: Has some review the chart there is no VTE ofloxacin. Start Lovenox 40 subcutaneous once a day.
[2020-01-02] MEDS: Enoxaparin 40 MG/0.4 ML Syringe SUBCUT SCH (17:50)
[2020-01-02] MEDS ORDERED: NS + KCl 20mEq/L 1,000 ML IV SCH (18:00)
[2020-01-03] MEDS: NS + KCl 20mEq/L 1,000 ML IV SCH ×2 (05:38→15:30)
--- NOTE | 2020-01-03 08:00 | PCM.PN ---
- General Info Date of Service: 01/03/20 Admission Dx/Problem (Free Text): The patient is sitting up at the side of the bed with her mother. Her mother and father both stated she is more alert and she asked her some crackers and something to drink today. They feel that she is improving. The mother reports that she is not had any cough, runny nose, fevers, dysuria. She had 3 days of diarrhea that's now gone. She's had no BM over 24 hours. The nurses also report they think she is more alert, cooperative. - Patient Data Vitals - Most Recent: Last Vital Signs Temp 97.7 F 01/03/20 00:00 Pulse 70 01/03/20 00:00 Resp 18 01/03/20 00:00 BP 156/88 H 01/03/20 00:00 Pulse Ox 98 01/03/20 00:00 Weight - Most Recent: 83 lb I&O - Last 24 Hours: Intake & Output 01/02/20 01/03/20 01/03/20 22:59 06:59 14:59 Intake Total 1300 650 Output Total 300 Balance 1000 650 Lab Results Last 24 Hours: Laboratory Results - last 24 hr 01/03/20 01/03/20 Range/Units 06:25 06:25 WBC 7.4 (4.5-12.0) X10-3/uL RBC 4.22 (3.23-5.20) x10(6)uL Hgb 12.1 (11.5-15.5) g/dL Hct 37.3 (30.0-51.3) % MCV 88.5 (80-96) fL MCH 28.6 (27.7-33.6) pg MCHC 32.3 (32.2-35.4) g/dL RDW 13.3 (11.5-15.5) % Plt Count 196 (125-369) X10(3)uL MPV 9.2 (7.4-10.4) fL Add Manual Diff Yes Neutrophils % (Manual) 66 (46-82) % Band Neutrophils % 3 (0-6) % Lymphocytes % (Manual) 27 (13-37) % Monocytes % (Manual) 3 L (4-12) % Eosinophils % (Manual) 1 (0-5) % Sodium 144 (135-145) mmol/L Potassium 3.4 L (3.5-5.3) mmol/L Chloride 108 (100-110) mmol/L Carbon Dioxide 25 (21-32) mmol/L BUN 4 L (7-18) mg/dL Creatinine 0.7 (0.55-1.02) mg/dL Est Cr Clr Drug Dosing 46.99 mL/min Estimated GFR (MDRD) > 60 (>60) BUN/Creatinine Ratio 5.7 L (9-20) Glucose 90 (80-116) mg/dL Calcium 9.9 (8.6-10.2) mg/dL Med Orders - Current: Current Medications Enoxaparin Sodium (Lovenox) 40 mg SUBCUT Q24H [facility] Last Admin: 01/02/20 17:50 Dose: 40 mg Documented by: Famotidine (Pepcid) 20 mg PO DAILY [facility] Last Admin: 01/02/20 09:53 Dose: Not Given Documented by: Potassium Chloride/Sodium Chloride (Normal Saline With 20 Meq Kcl) 1,000 mls @ 100 mls/hr IV ASDIRECTED [facility] Last Admin: 01/03/20 05:38 Dose: 100 mls/hr Documented by: Meloxicam (Mobic) 7.5 mg PO DAILY PRN PRN Reason: back pain Loperamide 1mg/7.5ml (Oral Solution) 0 each PO TID PRN PRN Reason: Diarrhea Last Admin: 01/01/20 11:52 Dose: 1 each Documented by: Pantoprazole Sodium (Protonix Iv) 40 mg IVPUSH Q24H [facility] Last Admin: 01/02/20 10:04 Dose: 40 mg Documented by: Potassium Chloride (Klor-Con) 20 meq PO DAILY [facility] Last Admin: 01/02/20 14:16 Dose: Not Given Documented by: Sodium Chloride (Saline Flush) 10 ml FLUSH ASDIRECTED PRN PRN Reason: Keep Vein Open Last Admin: 12/30/19 14:40 Dose: 10 ml Documented by: Discontinued Medications Famotidine (Pepcid) 20 mg IVPUSH Q24H [facility] Last Admin: 12/29/19 10:56 Dose: 20 mg Documented by: Sodium Chloride (Normal Saline) 500 mls @ 999 mls/hr IV .BOLUS ONE Stop: 12/28/19 11:03 Last Admin: 12/28/19 11:02 Dose: 999 mls/hr Documented by: Sodium Chloride (Normal Saline) 1,000 mls @ 100 mls/hr IV ASDIRECTED [facility] Last Infusion: 12/29/19 07:45 Dose: Infused Documented by: Famotidine 20 mg/ Premix 50 mls @ 200 mls/hr IV ONETIME ONE Stop: 12/28/19 10:34 Last Admin: 12/28/19 11:05 Dose: 200 mls/hr Documented by: Sodium Chloride (Normal Saline) 1,000 mls @ 75 mls/hr IV ASDIRECTED [facility] Last Admin: 12/29/19 07:45 Dose: 75 mls/hr Documented by: Sodium Chloride (Normal Saline) 1,000 mls @ 50 mls/hr IV ASDIRECTED [facility] Last Admin: 01/01/20 22:11 Dose: 50 mls/hr Documented by: Potassium Chloride/Sodium Chloride (Normal Saline With 20 Meq Kcl) 1,000 mls @ 250 mls/hr IV Q4H [facility] Last Admin: 01/02/20 19:30 Dose: Not Given Documented by: Potassium Chloride/Sodium Chloride (Normal Saline With 20 Meq Kcl) 1,000 mls @ 100 mls/hr IV Q4H [facility] Loperamide HCl (Loperamide) 2 mg PO .STK-MED ONE Stop: 01/01/20 11:53 Lorazepam (Ativan) 1 mg PO ONETIME PRN PRN Reason: Agitation Pantoprazole Sodium (Protonix Iv) 40 mg IVPUSH ONETIME ONE Stop: 12/31/19 08:47 Last Admin: 12/31/19 09:07 Dose: 40 mg Documented by: Sodium Chloride (Saline Flush) 10 ml FLUSH ASDIRECTED PRN PRN Reason: Keep Vein Open Last Admin: 12/28/19 11:00 Dose: 10 ml Documented by: - Exam General: Alert, Cooperative. No: Oriented Lungs: Clear to Auscultation, Normal Respiratory Effort GI/Abdominal Exam: No Distention Extremities: No Pedal Edema Sepsis Event Note - Evaluation Sepsis Screening Result: No Definite Risk - Focused Exam Vital Signs: Vital Signs Temp Pulse Resp BP Pulse Ox 01/03/20 00:00 97.7 F 70 18 156/88 H 98 - Problem List & Annotations (1) Palliative care status SNOMED Code(s): 071343767 Code(s): Z51.5 - ENCOUNTER FOR PALLIATIVE CARE Status: Acute Current Visit: Yes (2) Rapidly progressive weakness SNOMED Code(s): 59958165 Code(s): R53.1 - WEAKNESS Status: Acute Current Visit: Yes (3) Severe dehydration SNOMED Code(s): 982264056 Code(s): E86.0 - DEHYDRATION Status: Acute Current Visit: Yes (4) Microencephaly SNOMED Code(s): 2606176 Code(s): Q02 - MICROCEPHALY Status: Acute Current Visit: No (5) Mental retardation SNOMED Code(s): 553970171 Code(s): F79 - UNSPECIFIED INTELLECTUAL DISABILITIES Status: Chronic Current Visit: No (6) Hypernatremia SNOMED Code(s): 616127160 Code(s): E87.0 - HYPEROSMOLALITY AND HYPERNATREMIA Status: Resolved Current Visit: No (7) Hypokalemia SNOMED Code(s): 26836210 Code(s): E87.6 - HYPOKALEMIA Status: Acute Current Visit: Yes (8) Dysphagia SNOMED Code(s): 86209255, 065744036 Code(s): R13.10 - DYSPHAGIA, UNSPECIFIED Status: Acute Current Visit: Yes Qualifiers: Dysphagia type: unspecified Qualified Code(s): R13.10 - Dysphagia, unspecified (9) GERD (gastroesophageal reflux disease) SNOMED Code(s): 599022770 Code(s): K21.9 - GASTRO-ESOPHAGEAL REFLUX DISEASE WITHOUT ESOPHAGITIS Status: Acute Current Visit: No Qualifiers: Esophagitis presence: with esophagitis Annotation/Comment:: improved with IV Pepcid (10) Dehydration SNOMED Code(s): 76424010 Code(s): E86.0 - DEHYDRATION Status: Resolved Current Visit: No Annotation/Comment:: improving - Problem List Review Problem List Initiated/Reviewed/Updated: Yes - My Orders Last 24 Hours: My Active Orders 01/02/20 09:29 Meloxicam [Mobic] 7.5 mg PO DAILY PRN 01/02/20 09:45 Pantoprazole [ProTONIX IV] 40 mg IVPUSH Q24H 01/02/20 10:02 Resuscitation Status Routine 01/02/20 16:30 Enoxaparin [Lovenox] 40 mg SUBCUT Q24H 01/02/20 18:00 NS + KCl 20mEq/L [Normal Saline with 20 mEq KCl] 1,000 ml IV ASDIRECTED - Plan Plan:: 1. Continue the IV rate of normal saline with KCl at 100 mL an hour. 2. Follow to see how she takes oral fluids and food today. 3. Up in chair and ambulate if possible.
[2020-01-03] MEDS: Potassium Chloride 20 MEQ Packet PO SCH (09:52)
[2020-01-03] MEDS: Pantoprazole 40 MG Vial IVPUSH SCH (09:52)
[2020-01-03] MEDS: Enoxaparin 40 MG/0.4 ML Syringe SUBCUT SCH (16:43)
[2020-01-04] MEDS: NS + KCl 20mEq/L 1,000 ML IV SCH ×3 (00:59→20:09)
--- NOTE | 2020-01-04 08:07 | PCM.PN ---
- General Info Date of Service: 01/04/20 Admission Dx/Problem (Free Text): The parents feel that she is declined again. Not wanting to eat or drink and more lethargic. She did improve with increase in fluids. We have her now to 100 mL an hour of normal saline with KCl. Her potassium and sodium have improved. Mom states she has no coughing, fevers, any concerns about any other issues at this time other than maybe trouble swallowing. She did take some crackers and some Jell-O was able to keep down yesterday. - Patient Data Vitals - Most Recent: Last Vital Signs Temp 97.8 F 01/04/20 06:19 Pulse 72 01/04/20 06:19 Resp 18 01/04/20 06:19 BP 138/86 01/04/20 06:19 Pulse Ox 97 01/04/20 06:19 Weight - Most Recent: 83 lb I&O - Last 24 Hours: Intake & Output 01/03/20 01/04/20 01/04/20 23:59 06:59 14:59 Intake Total Balance Med Orders - Current: Current Medications Enoxaparin Sodium (Lovenox) 40 mg SUBCUT Q24H [facility] Last Admin: 01/03/20 16:43 Dose: 40 mg Documented by: Famotidine (Pepcid) 20 mg PO DAILY [facility] Last Admin: 01/02/20 09:53 Dose: Not Given Documented by: Potassium Chloride/Sodium Chloride (Normal Saline With 20 Meq Kcl) 1,000 mls @ 100 mls/hr IV ASDIRECTED [facility] Last Admin: 01/04/20 00:59 Dose: 100 mls/hr Documented by: Meloxicam (Mobic) 7.5 mg PO DAILY PRN PRN Reason: back pain Loperamide 1mg/7.5ml (Oral Solution) 0 each PO TID PRN PRN Reason: Diarrhea Last Admin: 01/01/20 11:52 Dose: 1 each Documented by: Pantoprazole Sodium (Protonix Iv) 40 mg IVPUSH Q24H [facility] Last Admin: 01/03/20 09:52 Dose: 40 mg Documented by: Potassium Chloride (Klor-Con) 20 meq PO DAILY [facility] Last Admin: 01/03/20 09:52 Dose: Not Given Documented by: Sodium Chloride (Saline Flush) 10 ml FLUSH ASDIRECTED PRN PRN Reason: Keep Vein Open Last Admin: 12/30/19 14:40 Dose: 10 ml Documented by: Discontinued Medications Famotidine (Pepcid) 20 mg IVPUSH Q24H [facility] Last Admin: 12/29/19 10:56 Dose: 20 mg Documented by: Sodium Chloride (Normal Saline) 500 mls @ 999 mls/hr IV .BOLUS ONE Stop: 12/28/19 11:03 Last Admin: 12/28/19 11:02 Dose: 999 mls/hr Documented by: Sodium Chloride (Normal Saline) 1,000 mls @ 100 mls/hr IV ASDIRECTED [facility] Last Infusion: 12/29/19 07:45 Dose: Infused Documented by: Famotidine 20 mg/ Premix 50 mls @ 200 mls/hr IV ONETIME ONE Stop: 12/28/19 10:34 Last Admin: 12/28/19 11:05 Dose: 200 mls/hr Documented by: Sodium Chloride (Normal Saline) 1,000 mls @ 75 mls/hr IV ASDIRECTED [facility] Last Admin: 12/29/19 07:45 Dose: 75 mls/hr Documented by: Sodium Chloride (Normal Saline) 1,000 mls @ 50 mls/hr IV ASDIRECTED [facility] Last Admin: 01/01/20 22:11 Dose: 50 mls/hr Documented by: Potassium Chloride/Sodium Chloride (Normal Saline With 20 Meq Kcl) 1,000 mls @ 250 mls/hr IV Q4H [facility] Last Admin: 01/02/20 19:30 Dose: Not Given Documented by: Potassium Chloride/Sodium Chloride (Normal Saline With 20 Meq Kcl) 1,000 mls @ 100 mls/hr IV Q4H [facility] Loperamide HCl (Loperamide) 2 mg PO .STK-MED ONE Stop: 01/01/20 11:53 Lorazepam (Ativan) 1 mg PO ONETIME PRN PRN Reason: Agitation Pantoprazole Sodium (Protonix Iv) 40 mg IVPUSH ONETIME ONE Stop: 12/31/19 08:47 Last Admin: 12/31/19 09:07 Dose: 40 mg Documented by: Sodium Chloride (Saline Flush) 10 ml FLUSH ASDIRECTED PRN PRN Reason: Keep Vein Open Last Admin: 12/28/19 11:00 Dose: 10 ml Documented by: - Exam General: Alert, Cooperative. No: Oriented Lungs: Clear to Auscultation, Normal Respiratory Effort Cardiovascular: Regular Rate, Regular Rhythm, No Murmurs Extremities: No Pedal Edema Psy/Mental Status: Alert, Other (Affect blunted) Sepsis Event Note - Evaluation Sepsis Screening Result: No Definite Risk - Focused Exam Vital Signs: Vital Signs Temp Pulse Resp BP Pulse Ox 01/04/20 06:19 97.8 F 72 18 138/86 97 01/04/20 00:00 97.6 F 74 18 142/88 H 97 - Problem List & Annotations (1) Palliative care status SNOMED Code(s): 511346546 Code(s): Z51.5 - ENCOUNTER FOR PALLIATIVE CARE Status: Acute Current Visit: Yes (2) Rapidly progressive weakness SNOMED Code(s): 30972792 Code(s): R53.1 - WEAKNESS Status: Acute Current Visit: Yes (3) Severe dehydration SNOMED Code(s): 362690155 Code(s): E86.0 - DEHYDRATION Status: Acute Current Visit: Yes (4) Microencephaly SNOMED Code(s): 8174178 Code(s): Q02 - MICROCEPHALY Status: Acute Current Visit: No (5) Mental retardation SNOMED Code(s): 399253192 Code(s): F79 - UNSPECIFIED INTELLECTUAL DISABILITIES Status: Chronic Current Visit: No (6) Hypernatremia SNOMED Code(s): 691485761 Code(s): E87.0 - HYPEROSMOLALITY AND HYPERNATREMIA Status: Resolved Current Visit: No (7) Hypokalemia SNOMED Code(s): 03953401 Code(s): E87.6 - HYPOKALEMIA Status: Acute Current Visit: Yes (8) Dysphagia SNOMED Code(s): 23860767, 424939562 Code(s): R13.10 - DYSPHAGIA, UNSPECIFIED Status: Acute Current Visit: Yes Qualifiers: Dysphagia type: unspecified Qualified Code(s): R13.10 - Dysphagia, unspecified (9) GERD (gastroesophageal reflux disease) SNOMED Code(s): 436370470 Code(s): K21.9 - GASTRO-ESOPHAGEAL REFLUX DISEASE WITHOUT ESOPHAGITIS Status: Acute Current Visit: No Qualifiers: Esophagitis presence: with esophagitis Annotation/Comment:: improved with IV Pepcid (10) Dehydration SNOMED Code(s): 23806851 Code(s): E86.0 - DEHYDRATION Status: Resolved Current Visit: No Annotation/Comment:: improving (11) Diarrhea SNOMED Code(s): 42225996 Code(s): R19.7 - DIARRHEA, UNSPECIFIED Status: Acute Current Visit: Yes (12) Failure to thrive SNOMED Code(s): 50900180 Code(s): OTP4284 - Status: Acute Current Visit: Yes - Problem List Review Problem List Initiated/Reviewed/Updated: Yes - Plan Plan:: Discussed cares with her parents and her guardians. Discussed getting CT of the head plus rechecking lungs with a chest x-ray and going over her again. They stated no matter the results are as nothing different that they would do at this point. They are considering hospice and taking her home as she she is. This is happened before when she was very sedated and didn't want to eat and they thought she was going to but that she perked up. They want to watch her one more day and see if she does improve. The family is considering taking her home on hospice. They don't want any further workup at this time.
[2020-01-04] MEDS: Potassium Chloride 20 MEQ Packet PO SCH (09:59)
[2020-01-04] MEDS: Pantoprazole 40 MG Vial IVPUSH SCH (09:59)
[2020-01-04] MEDS: Enoxaparin 40 MG/0.4 ML Syringe SUBCUT SCH (17:00)
[2020-01-05] MEDS: NS + KCl 20mEq/L 1,000 ML IV SCH (05:40)
--- NOTE | 2020-01-05 09:11 | PCM.PN ---
- General Info Date of Service: 01/05/20 Admission Dx/Problem (Free Text): The parents reported she had a better day yesterday and she is more alert and she ate some small lunch and supper. This morning she is a little bit more lethargic. The patients parents want to take her home and just see how she does. They would like hospice. - Patient Data Vitals - Most Recent: Last Vital Signs Temp 98.2 F 01/05/20 00:00 Pulse 86 01/05/20 00:00 Resp 18 01/05/20 00:00 BP 142/86 H 01/05/20 00:00 Pulse Ox 98 01/05/20 00:00 Weight - Most Recent: 83 lb I&O - Last 24 Hours: Intake & Output 01/04/20 01/05/20 01/05/20 22:59 06:59 14:59 Intake Total 806 982 Balance 806 982 Med Orders - Current: Current Medications Enoxaparin Sodium (Lovenox) 40 mg SUBCUT Q24H [facility] Last Admin: 01/04/20 17:00 Dose: 40 mg Documented by: Famotidine (Pepcid) 20 mg PO DAILY [facility] Last Admin: 01/02/20 09:53 Dose: Not Given Documented by: Potassium Chloride/Sodium Chloride (Normal Saline With 20 Meq Kcl) 1,000 mls @ 100 mls/hr IV ASDIRECTED [facility] Last Admin: 01/05/20 05:40 Dose: 100 mls/hr Documented by: Meloxicam (Mobic) 7.5 mg PO DAILY PRN PRN Reason: back pain Loperamide 1mg/7.5ml (Oral Solution) 0 each PO TID PRN PRN Reason: Diarrhea Last Admin: 01/01/20 11:52 Dose: 1 each Documented by: Pantoprazole Sodium (Protonix Iv) 40 mg IVPUSH Q24H [facility] Last Admin: 01/04/20 09:59 Dose: 40 mg Documented by: Potassium Chloride (Klor-Con) 20 meq PO DAILY [facility] Last Admin: 01/04/20 09:59 Dose: Not Given Documented by: Sodium Chloride (Saline Flush) 10 ml FLUSH ASDIRECTED PRN PRN Reason: Keep Vein Open Last Admin: 12/30/19 14:40 Dose: 10 ml Documented by: Discontinued Medications Famotidine (Pepcid) 20 mg IVPUSH Q24H [facility] Last Admin: 12/29/19 10:56 Dose: 20 mg Documented by: Sodium Chloride (Normal Saline) 500 mls @ 999 mls/hr IV .BOLUS ONE Stop: 12/28/19 11:03 Last Admin: 12/28/19 11:02 Dose: 999 mls/hr Documented by: Sodium Chloride (Normal Saline) 1,000 mls @ 100 mls/hr IV ASDIRECTED [facility] Last Infusion: 12/29/19 07:45 Dose: Infused Documented by: Famotidine 20 mg/ Premix 50 mls @ 200 mls/hr IV ONETIME ONE Stop: 12/28/19 10:34 Last Admin: 12/28/19 11:05 Dose: 200 mls/hr Documented by: Sodium Chloride (Normal Saline) 1,000 mls @ 75 mls/hr IV ASDIRECTED [facility] Last Admin: 12/29/19 07:45 Dose: 75 mls/hr Documented by: Sodium Chloride (Normal Saline) 1,000 mls @ 50 mls/hr IV ASDIRECTED [facility] Last Admin: 01/01/20 22:11 Dose: 50 mls/hr Documented by: Potassium Chloride/Sodium Chloride (Normal Saline With 20 Meq Kcl) 1,000 mls @ 250 mls/hr IV Q4H [facility] Last Admin: 01/02/20 19:30 Dose: Not Given Documented by: Potassium Chloride/Sodium Chloride (Normal Saline With 20 Meq Kcl) 1,000 mls @ 100 mls/hr IV Q4H [facility] Loperamide HCl (Loperamide) 2 mg PO .STK-MED ONE Stop: 01/01/20 11:53 Lorazepam (Ativan) 1 mg PO ONETIME PRN PRN Reason: Agitation Pantoprazole Sodium (Protonix Iv) 40 mg IVPUSH ONETIME ONE Stop: 12/31/19 08:47 Last Admin: 12/31/19 09:07 Dose: 40 mg Documented by: Sodium Chloride (Saline Flush) 10 ml FLUSH ASDIRECTED PRN PRN Reason: Keep Vein Open Last Admin: 12/28/19 11:00 Dose: 10 ml Documented by: - Exam General: Alert, Cooperative. No: Oriented Neck: Supple Lungs: Clear to Auscultation, Normal Respiratory Effort Cardiovascular: Regular Rate, Regular Rhythm, No Murmurs Sepsis Event Note - Evaluation Sepsis Screening Result: No Definite Risk - Focused Exam Vital Signs: Vital Signs Temp Pulse Resp BP Pulse Ox 01/05/20 00:00 98.2 F 86 18 142/86 H 98 - Problem List & Annotations (1) Palliative care status SNOMED Code(s): 083501961 Code(s): Z51.5 - ENCOUNTER FOR PALLIATIVE CARE Status: Acute Current Visit: Yes (2) Rapidly progressive weakness SNOMED Code(s): 36919972 Code(s): R53.1 - WEAKNESS Status: Acute Current Visit: Yes (3) Severe dehydration SNOMED Code(s): 655272808 Code(s): E86.0 - DEHYDRATION Status: Acute Current Visit: Yes (4) Microencephaly SNOMED Code(s): 0042903 Code(s): Q02 - MICROCEPHALY Status: Acute Current Visit: No (5) Mental retardation SNOMED Code(s): 898913301 Code(s): F79 - UNSPECIFIED INTELLECTUAL DISABILITIES Status: Chronic Current Visit: No (6) Hypernatremia SNOMED Code(s): 766415899 Code(s): E87.0 - HYPEROSMOLALITY AND HYPERNATREMIA Status: Resolved Current Visit: No (7) Hypokalemia SNOMED Code(s): 24445237 Code(s): E87.6 - HYPOKALEMIA Status: Acute Current Visit: Yes (8) Dysphagia SNOMED Code(s): 23708158, 942172525 Code(s): R13.10 - DYSPHAGIA, UNSPECIFIED Status: Acute Current Visit: Yes Qualifiers: Dysphagia type: unspecified Qualified Code(s): R13.10 - Dysphagia, unspecified (9) GERD (gastroesophageal reflux disease) SNOMED Code(s): 654543660 Code(s): K21.9 - GASTRO-ESOPHAGEAL REFLUX DISEASE WITHOUT ESOPHAGITIS Status: Acute Current Visit: No Qualifiers: Esophagitis presence: with esophagitis Annotation/Comment:: improved with IV Pepcid (10) Dehydration SNOMED Code(s): 03091125 Code(s): E86.0 - DEHYDRATION Status: Resolved Current Visit: No Annotation/Comment:: improving (11) Diarrhea SNOMED Code(s): 72330462 Code(s): R19.7 - DIARRHEA, UNSPECIFIED Status: Acute Current Visit: Yes (12) Failure to thrive SNOMED Code(s): 93386435 Code(s): QUW9383 - Status: Acute Current Visit: Yes - Problem List Review Problem List Initiated/Reviewed/Updated: Yes - Plan Plan:: Discharge to home on hospice.
--- NOTE | 2020-01-05 09:17 | PCM.DCSUM1 ---
Discharge Summary - Hospital Course Free Text/Narrative:: Patient was admitted for dehydration and GERD. She was given medications and some IV fluids. Initially she got a little better than she slowly got worse again. She was eating and drinking and very lethargic. Her sodium dropped a little bit from the hydration and so did her potassium. Was corrected with IV potassium and she would not take an oral tablet. Patient little bit better with a bolus fluids again. But she still ate poorly. Had many discussions with the parents and they decided they would like to take her home on hospice. Brief History: 64-year-old mentally retarded female who is brought to the emergency department via private vehicle by her mother (who is the patient's primary caregiver) with reports that for the past 2 weeks, the patient has been not eating well and has had decreasing levels of responsiveness and interaction. Symptoms have gotten progressively worse with time but particularly over the past 4 days. Mother reports that the patient had a similar-type issue about a year ago and had to be admitted for IV fluids and treatment of GERD esophagitis. The patient at the onset of this was complaining of upper chest and neck pain according to the mother. Those complaints have Broderick but the patient also has had a decrement in her ability to communicate complaints as well. She has had no fevers or chills. There has been no vomiting. Over the past 1-2 days, the patient has not really wanted to take anything by mouth and when she does take anything she spits it back out. She has had urine output but it has been decreased. She had a large bowel movement about 3 or 4 days ago and this is her normal. There was no blood in the bowel movement. The patient appears to be at a level 8/10 discomfort by Rom martin, Because of her mental retardation and condition at this point, cannot provide me with any information. Information that I get is from the patient's mother her primary caregiver. No fevers or chills. No nasal congestion. No known exposure to anyone with COVID 19. The patient does have relatives who have Covid 19 but she apparently has not been exposed to them. This is really the only history that I can obtain. The patient didn't have a barium esophagram on Sunday which showed no evidence of esophageal obstruction. There are no other associated signs or symptoms. There are no other modifying factors. Diagnosis: Stroke: No - Discharge Data Discharge Date: 01/05/20 Discharge Disposition: DC/Tfer to Hospice-[facility] Condition: Poor - Referral to Home Health Date of Face to Face Encounter: 01/05/20 Reason for Homebound Status: Failure to thrive Primary Care Physician: Alli Mendes MD - Discharge Diagnosis/Problem(s) (1) Palliative care status SNOMED Code(s): 007246788 ICD Code: Z51.5 - ENCOUNTER FOR PALLIATIVE CARE Status: Acute Current Visit: Yes (2) Rapidly progressive weakness SNOMED Code(s): 10380858 ICD Code: R53.1 - WEAKNESS Status: Acute Current Visit: Yes (3) Severe dehydration SNOMED Code(s): 896603700 ICD Code: E86.0 - DEHYDRATION Status: Acute Current Visit: Yes (4) Microencephaly SNOMED Code(s): 5016349 ICD Code: Q02 - MICROCEPHALY Status: Acute Current Visit: No (5) Mental retardation SNOMED Code(s): 649744101 ICD Code: F79 - UNSPECIFIED INTELLECTUAL DISABILITIES Status: Chronic Current Visit: No (6) Hypernatremia SNOMED Code(s): 443647417 ICD Code: E87.0 - HYPEROSMOLALITY AND HYPERNATREMIA Status: Resolved Current Visit: No (7) Hypokalemia SNOMED Code(s): 09294985 ICD Code: E87.6 - HYPOKALEMIA Status: Acute Current Visit: Yes (8) Dysphagia SNOMED Code(s): 21807001, 011202483 ICD Code: R13.10 - DYSPHAGIA, UNSPECIFIED Status: Acute Current Visit: Yes Qualifiers: Dysphagia type: unspecified Qualified Code(s): R13.10 - Dysphagia, unspecified (9) GERD (gastroesophageal reflux disease) SNOMED Code(s): 550498989 ICD Code: K21.9 - GASTRO-ESOPHAGEAL REFLUX DISEASE WITHOUT ESOPHAGITIS Stat us: Acute Current Visit: No Problem Details: improved with IV Pepcid Qualifiers: Esophagitis presence: with esophagitis (10) Dehydration SNOMED Code(s): 68650323 ICD Code: E86.0 - DEHYDRATION Status: Resolved Current Visit: No Problem Details: improving (11) Diarrhea SNOMED Code(s): 22027617 ICD Code: R19.7 - DIARRHEA, UNSPECIFIED Status: Acute Current Visit: Yes (12) Failure to thrive SNOMED Code(s): 15908231 ICD Code: MHN9151 - Status: Acute Current Visit: Yes - Patient Instructions Diet: Regular Diet as Tolerated Activity: As Tolerated Driving: Do Not Drive Showering/Bathing: May Shower Other/Special Instructions: 1. Discharge to home on hospice. 2. In the chance the patient starts to improve at home she should see Dr. Schilling in 1 week. - Discharge Plan Home Medications: Home Meds Acetaminophen [Tylenol Extra Strength] 500 mg PO TID PRN 11/14/18 [History] Calcium Carb/Vitamin D3/Vit K1 [Viactiv 650 mg-12.5 Mcg Chew] 2 tab PO WITHBREAKFAST 11/14/18 [History] Chewable Multivitamin 1 tab PO WITHBREAKFAST 11/14/18 [History] Meloxicam 7.5 mg PO DAILY PRN 11/14/18 [History] Lansoprazole [Prevacid] 30 mg PO DAILY 12/28/19 [History] Patient Handouts: Famotidine tablets or gelcaps, Hypokalemia Forms: ED Department Discharge Referrals: Alli Mendes MD [Primary Care Provider] - - Discharge Summary/Plan Comment DC Time >30 min.: No - Patient Data Vitals - Most Recent: Last Vital Signs Temp 98.2 F 01/05/20 00:00 Pulse 86 01/05/20 00:00 Resp 18 01/05/20 00:00 BP 142/86 H 01/05/20 00:00 Pulse Ox 98 01/05/20 00:00 Weight - Most Recent: 83 lb I&O - Last 24 hours: Intake & Output 01/04/20 01/05/20 01/05/20 22:59 06:59 14:59 Intake Total 806 982 Balance 806 982 Med Orders - Current: Current Medications Enoxaparin Sodium (Lovenox) 40 mg SUBCUT Q24H [facility] Last Admin: 01/04/20 17:00 Dose: 40 mg Documented by: Famotidine (Pepcid) 20 mg PO DAILY [facility] Last Admin: 01/02/20 09:53 Dose: Not Given Documented by: Potassium Chloride/Sodium Chloride (Normal Saline With 20 Meq Kcl) 1,000 mls @ 100 mls/hr IV ASDIRECTED BLANE Last Admin: 01/05/20 05:40 Dose: 100 mls/hr Documented by: Meloxicam (Mobic) 7.5 mg PO DAILY PRN PRN Reason: back pain Loperamide 1mg/7.5ml (Oral Solution) 0 each PO TID PRN PRN Reason: Diarrhea Last Admin: 01/01/20 11:52 Dose: 1 each Documented by: Pantoprazole Sodium (Protonix Iv) 40 mg IVPUSH Q24H [facility] Last Admin: 01/04/20 09:59 Dose: 40 mg Documented by: Potassium Chloride (Klor-Con) 20 meq PO DAILY [facility] Last Admin: 01/04/20 09:59 Dose: Not Given Documented by: Sodium Chloride (Saline Flush) 10 ml FLUSH ASDIRECTED PRN PRN Reason: Keep Vein Open Last Admin: 12/30/19 14:40 Dose: 10 ml Documented by: Discontinued Medications Famotidine (Pepcid) 20 mg IVPUSH Q24H [facility] Last Admin: 12/29/19 10:56 Dose: 20 mg Documented by: Sodium Chloride (Normal Saline) 500 mls @ 999 mls/hr IV .BOLUS ONE Stop: 12/28/19 11:03 Last Admin: 12/28/19 11:02 Dose: 999 mls/hr Documented by: Sodium Chloride (Normal Saline) 1,000 mls @ 100 mls/hr IV ASDIRECTED [facility] Last Infusion: 12/29/19 07:45 Dose: Infused Documented by: Famotidine 20 mg/ Premix 50 mls @ 200 mls/hr IV ONETIME ONE Stop: 12/28/19 10:34 Last Admin: 12/28/19 11:05 Dose: 200 mls/hr Documented by: Sodium Chloride (Normal Saline) 1,000 mls @ 75 mls/hr IV ASDIRECTED [facility] Last Admin: 12/29/19 07:45 Dose: 75 mls/hr Documented by: Sodium Chloride (Normal Saline) 1,000 mls @ 50 mls/hr IV ASDIRECTED [facility] Last Admin: 01/01/20 22:11 Dose: 50 mls/hr Documented by: Potassium Chloride/Sodium Chloride (Normal Saline With 20 Meq Kcl) 1,000 mls @ 250 mls/hr IV Q4H [facility] Last Admin: 01/02/20 19:30 Dose: Not Given Documented by: Potassium Chloride/Sodium Chloride (Normal Saline With 20 Meq Kcl) 1,000 mls @ 100 mls/hr IV Q4H [facility] Loperamide HCl (Loperamide) 2 mg PO .STK-MED ONE Stop: 01/01/20 11:53 Lorazepam (Ativan) 1 mg PO ONETIME PRN PRN Reason: Agitation Pantoprazole Sodium (Protonix Iv) 40 mg IVPUSH ONETIME ONE Stop: 12/31/19 08:47 Last Admin: 12/31/19 09:07 Dose: 40 mg Documented by: Sodium Chloride (Saline Flush) 10 ml FLUSH ASDIRECTED PRN PRN Reason: Keep Vein Open Last Admin: 12/28/19 11:00 Dose: 10 ml Documented by:
[2020-01-05] MEDS: Potassium Chloride 20 MEQ Packet PO SCH (09:46)
[2020-01-05] MEDS: Pantoprazole 40 MG Vial IVPUSH SCH (09:49)
[2020-01-05 14:34] VITALS: BP 152/89; PULSE 88
== END 2020-01-05 11:08 | disposition hospice, inpatient (51) | DRG 392 ==
LOC: FB.ED 09:38 → FB.MS 12:04
PROVIDERS: ADMIT Emergency Medicine; ATTEND Family Medicine
DX: G93.40 Encephalopathy, unspecified (principal); K21.00 Gastro-esophageal reflux disease with esophagitis, without bleeding; R53.1 Weakness; E87.0 Hyperosmolality and hypernatremia; E86.0 Dehydration; F79 Unspecified intellectual disabilities; E73.9 Lactose intolerance, unspecified; M41.9 Scoliosis, unspecified; Z51.5 Encounter for palliative care; Q02 Microcephaly; E87.6 Hypokalemia; R13.10 Dysphagia, unspecified; R62.51 Failure to thrive (child); Z96.642 Presence of left artificial hip joint; M19.90 Unspecified osteoarthritis, unspecified site; F41.9 Anxiety disorder, unspecified; H54.7 Unspecified visual loss; K12.0 Recurrent oral aphthae; K21.9 Gastro-esophageal reflux disease without esophagitis; R62.50 Unspecified lack of expected normal physiological development in childhood; E83.52 Hypercalcemia; Z79.899 Other long term (current) drug therapy; Z88.5 Allergy status to narcotic agent; Z88.8 Allergy status to other drugs, medicaments and biological substances; Z98.890 Other specified postprocedural states; Z20.828 Contact with and (suspected) exposure to other viral communicable diseases
CPT/HCPCS: 36415; 71045; 80048; 80053; 81001; 83735; 84484; 85025; 86140; 87230; 93005; 96374; 99285-25; A9270-GY; C9113; J1650; J3480; J3490; J7030; J7040; U0002

== ENCOUNTER 2020-07-06 20:29 | Inpatient (IN) | payer MEDICARE, BC, MEDICAID ==
[~2020-07-06 20:29] MED LIST: Pantoprazole 40 MG Vial IVPUSH SCH
[2020-07-06] MEDS ORDERED: Morphine 2 MG/ML SYRINGE IVPUSH STA (20:53)
[2020-07-06] MEDS ORDERED: Pantoprazole 40 MG Vial IVPUSH ONE (20:53)
[2020-07-06] MEDS ORDERED: Ondansetron 4 MG/2 ML SDV IVPUSH STA (20:53)
[2020-07-06] MEDS ORDERED: Sodium Chloride 0.9% 1,000 ML IV SCH (21:00)
--- NOTE | 2020-07-06 23:19 | EDM.PDOC ---
ED HPI GENERAL MEDICAL PROBLEM - General Chief Complaint: General Stated Complaint: WEAKNESS Time Seen by Provider: 07/06/20 20:35 Source of Information: Reports: Patient History Limitations: Reports: No Limitations - History of Present Illness INITIAL COMMENTS - FREE TEXT/NARRATIVE: Patient is a 64 YO WF who presented to the ED because of weakness which started 3 days ago. She was burping a lot and has not been eating or drinking well. Yesterday she was pointing to her chest and throat. Her mom said that whenever she has a flare up of her GERD she wouldn't like to eat or drink. There is no nausea,vomiting,diarrhea. there is no fever,chills, cough or cold symptoms. - Related Data Allergies Allergy/AdvReac Type Severity Reaction Status Date / Time metoclopramide [From Reglan] Allergy Vomiting Verified 12/28/19 10:15 morphine Allergy Rash Verified 12/28/19 10:15 scopolamine Allergy Agitation Verified 12/28/19 10:15 Home Meds: Home Meds Acetaminophen [Tylenol Extra Strength] 500 mg PO TID PRN 11/14/18 [History] Calcium Carb/Vitamin D3/Vit K1 [Viactiv 650 mg-12.5 Mcg Chew] 2 tab PO W ITHBREAKFAST 11/14/18 [History] Chewable Multivitamin 1 tab PO WITHBREAKFAST 11/14/18 [History] Lansoprazole [Prevacid] 30 mg PO DAILY 12/28/19 [History] Mag Hydrox/Aluminum Hyd/Simeth [Mylanta Maximum Strength Liq] 30 ml PO Q4H PRN 07/06/20 [History] Past Medical History HEENT History: Reports: Impaired Vision, Other (See Below) 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 Gastrointestinal History: Reports: GERD, Other (See Below) Other Gastrointestinal History: lactose intolarant Musculoskeletal History: Reports: Other (See Below) Other Musculoskeletal History: SCOLIOSIS Neurological History: Reports: Other (See Below) Other Neuro History: MICROCEPHALY Psychiatric History: Reports: Developmental Delay - Infectious Disease History Infectious Disease History: Reports: None - Past Surgical History HEENT Surgical History: Reports: Oral Surgery GI Surgical History: Reports: Other (See Below) Other GI Surgeries/Procedures: prior surgery done to prolapsed rectum Neurological Surgical History: Reports: None Musculoskeletal Surgical History: Reports: Hip Replacement Other Musculoskeletal Surgeries/Procedures:: left hip replacement. cyst was removed from tailbone Social & Family History - Family History Family Medical History: No Pertinent Family History Cardiac: Reports: Heart Failure Musculoskeletal: Reports: Back pain, Chronic Endocrine/Metabolic: Reports: Diabetes, type II Hematologic: Reports: Other (See Below) Other Hematologic Family History: unknown blood disorder - Tobacco Use Tobacco Use Status *Q: Never Tobacco User - Caffeine Use Caffeine Use: Reports: None - Recreational Drug Use Recreational Drug Use: No - Living Situation & Occupation Living situation: Reports: Single Occupation: Disabled ED ROS GENERAL - Review of Systems Review Of Systems: See Below Constitutional: Reports: Weakness HEENT: Reports: No Symptoms Respiratory: Reports: No Symptoms Cardiovascular: Reports: No Symptoms Endocrine: Reports: No Symptoms GI/Abdominal: Reports: Abdominal Pain : Reports: No Symptoms Musculoskeletal: Reports: No Symptoms Skin: Reports: No Symptoms Neurological: Reports: No Symptoms Psychiatric: Reports: No Symptoms Hematologic/Lymphatic: Reports: No Symptoms ED EXAM, GENERAL - Physical Exam Exam: See Below Exam Limited By: Physical Impairment General Appearance: Lethargic Eye Exam: Bilateral Eye: PERRL Ears: Normal External Exam Nose: Normal Inspection, Normal Mucosa Throat/Mouth: Normal Inspection, Other (dry lips) Head: Atraumatic, Normocephalic Neck: Normal Inspection, Supple, Non-Tender Respiratory/Chest: No Respiratory Distress, Lungs Clear, Normal Breath Sounds Cardiovascular: Normal Peripheral Pulses, Regular Rate, Rhythm, No Edema GI/Abdominal: Normal Bowel Sounds, Soft, Non-Tender, No Organomegaly, No Distention Back Exam: Normal Inspection, Full Range of Motion Neurological: Other (non-communicative) Course - Vital Signs Text/Narrative:: Lab result was reviewed and discussed with parents NS 500 ml/hr Protonix 80 mg IV x1 Zofran 4 mg IV x1 Last Recorded V/S: Last Vital Signs Temp 36.4 C 07/06/20 20:31 Pulse 107 H 07/06/20 20:31 Resp 16 07/06/20 20:31 BP 161/76 H 07/06/20 20:31 Pulse Ox 97 07/06/20 20:31 - Orders/Labs/Meds Orders: Active Orders 24 hr Category Date Time Status Sodium Chloride 0.9% [Normal Saline] 1,000 ml Med 07/06/20 21:00 Active IV ASDIRECTED Medication Orders Sodium Chloride (Normal Saline) 1,000 mls @ 999 mls/hr IV ASDIRECTED BLANE Last Admin: 07/06/20 21:47 Dose: 500 mls/hr Documented by: YESIKA Labs: Laboratory Tests 07/06/20 07/06/20 07/06/20 Range/Units 21:25 21:25 21:25 WBC 9.3 (3.0-10.3) x10-3/uL RBC 4.56 (3.60-5.20) x10(6)uL Hgb 13.2 (11.4-15.5) g/dL Hct 40.8 (34.2-48.2) % MCV 89.5 (76.7-100.5) fL MCH 29.0 (23.9-33.9) pg MCHC 32.4 (31.9-34.8) g/dL RDW 14.8 (12.3-16.5) % Plt Count 253 (151-488) x10(3)uL MPV 8.6 (7.1-12.4) fL Neut % (Auto) 84.6 H (30.8-76.2) % Lymph % (Auto) 9.2 L (18.4-52.1) % Bryan % (Auto) 5.0 (4.4-15.7) % Eos % (Auto) 0.8 (0.6-8.1) % Baso % (Auto) 0.4 (0.2-1.5) % Neut # (Auto) 7.9 H (1.5-6.3) x10-3/uL Lymph # (Auto) 0.9 L (1.0-4.4) x10-3/uL Bryan # (Auto) 0.5 (0.3-1.0) x10-3/uL Eos # (Auto) 0.1 (0.0-0.8) x10-3/uL Baso # (Auto) 0.0 (0.0-0.1) x10-3/uL Sodium 142 (135-145) mmol/L Potassium 4.5 D (3.5-5.3) mmol/L Chloride 102 D (100-110) mmol/L Carbon Dioxide 29 (21-32) mmol/L BUN 28 H D (7-18) mg/dL Creatinine 1.0 (0.55-1.02) mg/dL Est Cr Clr Drug Dosing TNP Estimated GFR (MDRD) 55 L (>60) BUN/Creatinine Ratio 28.0 H (9-20) Glucose 160 H (80-116) mg/dL Calcium 10.4 H (8.6-10.2) mg/dL Total Bilirubin 0.5 (0.1-1.3) mg/dL AST 9 D (5-25) IU/L ALT 19 (12-36) U/L Alkaline Phosphatase 109 (56-112) IU/L Total Protein 7.7 (6.0-8.0) g/dL Albumin 3.9 (3.2-4.6) g/dL Globulin 3.8 g/dL Albumin/Globulin Ratio 1.0 Amylase 74 (25-115) U/L Lipase 60 L (73-393) U/L Urine Color (YELLOW) Urine Appearance (CLEAR) Urine pH (5.0-6.5) Ur Specific Home (1.010-1.025) Urine Protein (NEGATIVE) mg/dL Urine Glucose (UA) (NORMAL) mg/dL Urine Ketones (NEGATIVE) mg/dL Urine Occult Blood (NEGATIVE) Urine Nitrite (NEGATIVE) Urine Bilirubin (NEGATIVE) Urine Urobilinogen (NEGATIVE) mg/dL Ur Leukocyte Esterase (NEGATIVE) Urine RBC (0-5) Urine WBC (0-5) Ur Squamous Epith Cells (NS,R,O) Urine Bacteria (NS) 07/06/20 Range/Units 21:42 WBC (3.0-10.3) x10-3/uL RBC (3.60-5.20) x10(6)uL Hgb (11.4-15.5) g/dL Hct (34.2-48.2) % MCV (76.7-100.5) fL MCH (23.9-33.9) pg MCHC (31.9-34.8) g/dL RDW (12.3-16.5) % Plt Count (151-488) x10(3)uL MPV (7.1-12.4) fL Neut % (Auto) (30.8-76.2) % Lymph % (Auto) (18.4-52.1) % Bryan % (Auto) (4.4-15.7) % Eos % (Auto) (0.6-8.1) % Baso % (Auto) (0.2-1.5) % Neut # (Auto) (1.5-6.3) x10-3/uL Lymph # (Auto) (1.0-4.4) x10-3/uL Bryan # (Auto) (0.3-1.0) x10-3/uL Eos # (Auto) (0.0-0.8) x10-3/uL Baso # (Auto) (0.0-0.1) x10-3/uL Sodium (135-145) mmol/L Potassium (3.5-5.3) mmol/L Chloride (100-110) mmol/L Carbon Dioxide (21-32) mmol/L BUN (7-18) mg/dL Creatinine (0.55-1.02) mg/dL Est Cr Clr Drug Dosing Estimated GFR (MDRD) (>60) BUN/Creatinine Ratio (9-20) Glucose (80-116) mg/dL Calcium (8.6-10.2) mg/dL Total Bilirubin (0.1-1.3) mg/dL AST (5-25) IU/L ALT (12-36) U/L Alkaline Phosphatase (56-112) IU/L Total Protein (6.0-8.0) g/dL Albumin (3.2-4.6) g/dL Globulin g/dL Albumin/Globulin Ratio Amylase (25-115) U/L Lipase (73-393) U/L Urine Color Yellow (YELLOW) Urine Appearance Clear (CLEAR) Urine pH 5.0 (5.0-6.5) Ur Specific Home 1.025 (1.010-1.025) Urine Protein Trace (NEGATIVE) mg/dL Urine Glucose (UA) Normal (NORMAL) mg/dL Urine Ketones 15 H (NEGATIVE) mg/dL Urine Occult Blood Negative (NEGATIVE) Urine Nitrite Negative (NEGATIVE) Urine Bilirubin Negative (NEGATIVE) Urine Urobilinogen Normal (NEGATIVE) mg/dL Ur Leukocyte Esterase Negative (NEGATIVE) Urine RBC 0-5 (0-5) Urine WBC 0-5 (0-5) Ur Squamous Epith Cells Few H (NS,R,O) Urine Bacteria Few H (NS) Meds: Medications Generic Name Dose Route Start Last Admin Trade Name Amilcar PRN Reason Stop Dose Admin Sodium Chloride 1,000 mls @ 999 mls/hr 07/06/20 21:00 07/06/20 21:47 Normal Saline IV 500 mls/hr ASDIRECTED BLANE Administration Discontinued Medications Generic Name Dose Route Start Last Admin Trade Name Amilcar PRN Reason Stop Dose Admin Morphine Sulfate 2 mg 07/06/20 20:53 Morphine 2 Mg/Ml Syringe IVPUSH 07/06/20 20:54 NOW STA Ondansetron HCl 4 mg 07/06/20 20:53 07/06/20 21:35 Ondansetron 4 Mg/2 Ml Sdv IVPUSH 07/06/20 20:54 4 mg NOW STA Administration Pantoprazole Sodium 80 mg 07/06/20 20:53 07/06/20 21:37 Pantoprazole 40 Mg Vial IVPUSH 07/06/20 20:54 80 mg .BOLUS ONE Administration Departure - Departure Time of Disposition: 23:30 Disposition: Refer to Observation Condition: Good Clinical Impression: Dehydration, Weakness GERD (gastroesophageal reflux disease) Qualifiers: Esophagitis presence: with esophagitis Qualified Code(s): K21.0 - Gastro- esophageal reflux disease with esophagitis - Discharge Information Referrals: Alli Mendes MD [Primary Care Provider] - Sepsis Event Note (ED) - Evaluation Sepsis Screening Result: No Definite Risk - Focused Exam Vital Signs: Vital Signs Temp Pulse Resp BP Pulse Ox 07/06/20 20:31 36.4 C 107 H 16 161/76 H 97 - My Orders Last 24 Hours: My Active Orders 07/06/20 21:00 Sodium Chloride 0.9% [Normal Saline] 1,000 ml IV ASDIRECTED - Assessment/Plan Last 24 Hours: My Active Orders 07/06/20 21:00 Sodium Chloride 0.9% [Normal Saline] 1,000 ml IV ASDIRECTED
[2020-07-06] MEDS ORDERED: Ondansetron 4 MG/2 ML SDV IV PRN (23:30)
[2020-07-07] MEDS: Sodium Chloride 0.9% 1,000 ML IV SCH ×3 (00:35→16:44)
[2020-07-07] MEDS: Enoxaparin 40 MG/0.4 ML Syringe SUBCUT SCH ×2 (00:51→21:45)
[2020-07-07] MEDS ORDERED: MULTIVITAMIN PO SCH (08:00)
[2020-07-07] MEDS ORDERED: Pantoprazole 40 MG Vial IVPUSH SCH (09:00)
--- NOTE | 2020-07-07 11:55 | HP ---
ADMISSION DATE: 07/07/2020 REASON FOR ADMISSION: Abdominal pain, nausea, GERD related symptoms. HISTORY OF PRESENT ILLNESS: Erlinda Sung is a delightful 64-year- old female, care provided by parents, was seen and evaluated in the emergency room. Progressive decline in general well-being over the last 3 days duration. Excessive burping, nausea, a sense of pressure in her chest, and reluctant to eat and drink. Increasing kind of general spasm and reduced well- being. History of gastroesophageal reflux. When seen in the emergency room, laboratory studies; white count 9300 and hemoglobin 13.2, normal indices. Electrolytes satisfactory. Mildly elevated potassium 4.5, BUN 28, GFR 53, creatinine 1.4. No x-ray studies were performed. DAILY MEDICATIONS: Include: 1. Prevacid 30 mg 1 p.o. daily, GERD. 2. P.r.n. Tylenol. 3. Calcium plus vitamin D. 4. Chewable multivitamins. PAST MEDICAL HISTORY: Significant for previous hip fracture and surgical repair, and rectal prolapse repair in early adulthood. No other operative procedures, hospitalizations, unusual childhood diseases, major injuries, or fractures. Intellectually compromised since . SOCIAL HISTORY: Lives with her parents all of her life. No complicating health issues. Dad is retired dentist. Mom is a [id number]-dbrv mom. Three siblings, younger. Nonsmoker. No alcohol or illicit drug use. REVIEW OF SYSTEMS: Other than HPI, the patient is nonverbal. PHYSICAL EXAMINATION: VITAL SIGNS: 1.52 m tall, 37.058 kg, 36.5, pulse 103, 159/87, 18, and 100%. GENERAL: Lying recumbent on her right side. No obvious distress. HEENT: Conjunctivae clear. Bright tympanic membranes. Clear nasal discharge. Mouth and oropharynx clear. NECK: Benign. Thyroid small. CHEST: On auscultation, clear in all lung grissom. HEART: On auscultation, no ectopy or murmur. ABDOMEN: Appears pretty benign. Slender. No palpable masses. : Deferred. RECTAL: Deferred. EXTREMITIES: Well perfused. LABORATORY STUDIES: Today, electrolytes satisfactory. BUN 21, GFR greater than 60, creatinine 0.8. Urinalysis unremarkable. ASSESSMENT: Peculiar abdominal pain. PLAN: IV fluids, good hydration, analgesics as appropriate, intravenous Protonix, diagnostic ultrasound to be performed. /[id number] CLAUDE/RON
[2020-07-07] MEDS: Ketorolac 15 MG/ML SDV IVPUSH PRN (18:18)
--- NOTE | 2020-07-07 19:39 | US ---
INDICATION: Abdominal pain. ULTRASOUND ABDOMEN, COMPLETE: Utilizing 2-D realtime duplex Doppler spectral analysis and color flow imaging, examination of the abdomen was obtained 07/07/20 - no comparisons. The IVC was shown to be phasic - patent with duplex Doppler spectral analysis. The gallbladder appeared normal. Common bile duct was normal in caliber at 2.3 mm. The liver was grossly normal. The kidneys measured on the right 7.4 x 4 x 2.9 cm with the left measuring 7 x 3.2 x 3.5 cm. The kidneys appeared normal. The spleen appeared normal measuring a maximum of 5.9 cm. The pancreas was not adequately visualized due to gas overlying it in the intestine. The aorta was normal in caliber proximally, but was not seen in the mid to distal areas. IMPRESSION: Grossly normal abdominal ultrasound with poor visualization of the pancreas - inadequate visualization of the pancreas noted. MTDD
[2020-07-08] MEDS: Ketorolac 15 MG/ML SDV IVPUSH PRN ×2 (00:40→21:22)
[2020-07-08] MEDS: Sodium Chloride 0.9% 1,000 ML IV SCH ×3 (00:45→17:15)
--- NOTE | 2020-07-08 10:41 | PN ---
DATE SEEN: 07/08/2020 SUBJECTIVE: Holly Sung is a delightful 64-year-old female, seen today for followup. Was admitted on 07/07 with some complicated abdominal pain. History of gastroesophageal reflux and similar hospitalizations in the past. Had a plus/minus night. Medications on board include intravenous p.r.n. Toradol 50 mg q.6 hours, Zofran for nausea, and Protonix IV. Ultrasound revealed no pathology intraabdominal, no stones. Otherwise comfortable. LABORATORY STUDIES: 07/06/2020 and 07/07/2020, stable findings. PHYSICAL EXAMINATION: VITAL SIGNS: 36.8, 80, 163/106, 18, and 98%. GENERAL: Minimally conversant. NECK: Benign. Thyroid small. CHEST: Clear in all lung grissom. HEART: Regular. ABDOMEN: Appears benign. ASSESSMENT: Complicated reflux symptoms. PLAN: medication, endoscopy not indicated, fluoroscopy not indicated, continue with present medications, IV fluids and IV Protonix. Similar episode 6 months ago took few days and then resolved. /[id number] CLAUDE/RON
[2020-07-08] MEDS: Enoxaparin 40 MG/0.4 ML Syringe SUBCUT SCH (21:19)
[2020-07-09] MEDS: Sodium Chloride 0.9% 1,000 ML IV SCH ×3 (00:45→16:51)
--- NOTE | 2020-07-09 08:38 | PCM.PN ---
- General Info Date of Service: 07/09/20 Subjective Update: Still not bale to eat or drink. Pain seems improved. Agitation present on touch. Intellectually disabled. - Review of Systems HEENT: Reports: No Symptoms Pulmonary: Reports: No Symptoms Cardiovascular: Reports: No Symptoms - Patient Data Vitals - Most Recent: Last Vital Signs Temp 98.2 F 07/09/20 02:30 Pulse 77 07/09/20 02:30 Resp 18 07/09/20 02:30 BP 157/95 H 07/09/20 02:30 Pulse Ox 97 07/09/20 02:30 Weight - Most Recent: 37.058 kg I&O - Last 24 Hours: Intake & Output 07/08/20 07/09/20 07/09/20 22:59 06:59 14:59 Intake Total 564 1060 Balance 564 1060 Med Orders - Current: Current Medications Acetaminophen (Acetaminophen 500 Mg Tab) 500 mg PO TID PRN PRN Reason: Pain Enoxaparin Sodium (Enoxaparin 40 Mg/0.4 Ml Syringe) 40 mg SUBCUT BEDTIME [facility] Last Admin: 07/08/20 21:19 Dose: 40 mg Documented by: Sodium Chloride (Normal Saline) 1,000 mls @ 125 mls/hr IV ASDIRECTED [facility] Last Admin: 07/09/20 00:45 Dose: 125 mls/hr Documented by: Ketorolac Tromethamine (Ketorolac 15 Mg/Ml Sdv) 15 mg IVPUSH Q6H PRN PRN Reason: Pain Stop: 07/12/20 17:04 Last Admin: 07/08/20 21:22 Dose: 15 mg Documented by: Ondansetron HCl (Ondansetron 4 Mg/2 Ml Sdv) 4 mg IV Q4H PRN PRN Reason: Nausea/Vomiting Discontinued Medications Sodium Chloride (Normal Saline) 1,000 mls @ 999 mls/hr IV ASDIRECTED [facility] Last Admin: 07/06/20 21:47 Dose: 500 mls/hr Documented by: Morphine Sulfate (Morphine 2 Mg/Ml Syringe) 2 mg IVPUSH NOW STA Stop: 07/06/20 20:54 Last Admin: 07/06/20 23:48 Dose: Not Given Documented by: Non-Formulary Medication (Calcium Carb/Vitamin D3/Vit K1 [Viactiv 650 Mg-12.5 Mcg Chew]) 2 tab PO WITHBREAKFAST [facility] Last Admin: 07/07/20 10:26 Dose: Not Given Documented by: Non-Formulary Medication (Chewable Multivitamin) 1 tab PO WITHBREAKFAST [facility] Last Admin: 07/07/20 10:26 Dose: Not Given Documented by: Non-Formulary Medication (Mag Hydrox/Aluminum Hyd/Simeth [Mylanta Maximum Strength Liq]) 30 ml PO Q4H PRN PRN Reason: Indigestion Ondansetron HCl (Ondansetron 4 Mg/2 Ml Sdv) 4 mg IVPUSH NOW STA Stop: 07/06/20 20:54 Last Admin: 07/06/20 21:35 Dose: 4 mg Documented by: Pantoprazole Sodium (Pantoprazole 40 Mg Vial) 80 mg IVPUSH .BOLUS ONE Stop: 07/06/20 20:54 Last Admin: 07/06/20 21:37 Dose: 80 mg Documented by: Pantoprazole Sodium (Pantoprazole 40 Mg Vial) 40 mg IVPUSH Q24H [facility] Last Admin: 07/06/20 23:48 Dose: Not Given Documented by: Pantoprazole Sodium (Pantoprazole 40 Mg Vial) 40 mg IVPUSH Q24H [facility] Last Admin: 07/07/20 08:45 Dose: 40 mg Documented by: - Exam Quality Assessment: No: Supplemental Oxygen General: Alert. No: Oriented Lungs: Clear to Auscultation Cardiovascular: Regular Rate - Patient Data Result Diagrams: 07/06/20 21:25 07/07/20 06:17 Sepsis Event Note - Evaluation Sepsis Screening Result: No Definite Risk - Focused Exam Vital Signs: Vital Signs Temp Pulse Resp BP Pulse Ox 07/09/20 02:30 98.2 F 77 18 157/95 H 97 07/08/20 21:00 97 - Problem List & Annotations (1) Cyclic vomiting syndrome Status: Acute Current Visit: Yes (2) Dehydration SNOMED Code(s): 71824029 Code(s): E86.0 - DEHYDRATION Status: Acute Current Visit: Yes (3) Dysphagia SNOMED Code(s): 95159113, 297965183 Code(s): R13.10 - DYSPHAGIA, UNSPECIFIED Status: Acute Current Visit: No Qualifiers: Dysphagia type: unspecified Qualified Code(s): R13.10 - Dysphagia, unspecified (4) Mental retardation SNOMED Code(s): 371646157 Code(s): F79 - UNSPECIFIED INTELLECTUAL DISABILITIES Status: Chronic Current Visit: No - Problem List Review Problem List Initiated/Reviewed/Updated: Yes - Plan Plan:: Continue IV Fluid replacement for a few more days. DC Toradol.
[2020-07-09] MEDS: Acetaminophen 500 MG Tab PO PRN ×2 (13:27→21:58)
[2020-07-09] MEDS: Enoxaparin 40 MG/0.4 ML Syringe SUBCUT SCH (21:30)
[2020-07-10] MEDS: Sodium Chloride 0.9% 1,000 ML IV SCH ×3 (00:59→21:45)
--- NOTE | 2020-07-10 08:38 | PCM.PN ---
- General Info Date of Service: 07/10/20 Subjective Update: Today she has purked up.Smiling,interactive. Mild BAILEY overnight,helped by Tylenol.k. Pain seems improved. Agitation present on touch. Intellectually disabled. Functional Status: Reports: Pain Controlled - Review of Systems General: Reports: No Symptoms HEENT: Reports: No Symptoms - Patient Data Vitals - Most Recent: Last Vital Signs Temp 97.2 F 07/10/20 03:00 Pulse 69 07/10/20 03:00 Resp 18 07/10/20 03:00 BP 139/87 07/10/20 03:00 Pulse Ox 98 07/10/20 03:00 Weight - Most Recent: 37.058 kg I&O - Last 24 Hours: Intake & Output 07/09/20 07/10/20 07/10/20 22:59 06:59 14:59 Intake Total 967 1070 Balance 967 1070 Med Orders - Current: Current Medications Acetaminophen (Acetaminophen 500 Mg Tab) 500 mg PO TID PRN PRN Reason: Pain Last Admin: 07/09/20 21:58 Dose: 500 mg Documented by: Enoxaparin Sodium (Enoxaparin 40 Mg/0.4 Ml Syringe) 40 mg SUBCUT BEDTIME [facility] Last Admin: 07/09/20 21:30 Dose: 40 mg Documented by: Ketorolac Tromethamine (Ketorolac 15 Mg/Ml Sdv) 15 mg IVPUSH Q6H PRN PRN Reason: Pain Stop: 07/12/20 17:04 Last Admin: 07/08/20 21:22 Dose: 15 mg Documented by: Ondansetron HCl (Ondansetron 4 Mg/2 Ml Sdv) 4 mg IV Q4H PRN PRN Reason: Nausea/Vomiting Discontinued Medications Sodium Chloride (Normal Saline) 1,000 mls @ 999 mls/hr IV ASDIRECTED [facility] Last Admin: 07/06/20 21:47 Dose: 500 mls/hr Documented by: Sodium Chloride (Normal Saline) 1,000 mls @ 125 mls/hr IV ASDIRECTED [facility] Last Admin: 07/10/20 00:59 Dose: 125 mls/hr Documented by: Morphine Sulfate (Morphine 2 Mg/Ml Syringe) 2 mg IVPUSH NOW STA Stop: 07/06/20 20:54 Last Admin: 07/06/20 23:48 Dose: Not Given Documented by: Non-Formulary Medication (Calcium Carb/Vitamin D3/Vit K1 [Viactiv 650 Mg-12.5 Mcg Chew]) 2 tab PO WITHBREAKFAST [facility] Last Admin: 07/07/20 10:26 Dose: Not Given Documented by: Non-Formulary Medication (Chewable Multivitamin) 1 tab PO WITHBREAKFAST [facility] Last Admin: 07/07/20 10:26 Dose: Not Given Documented by: Non-Formulary Medication (Mag Hydrox/Aluminum Hyd/Simeth [Mylanta Maximum Strength Liq]) 30 ml PO Q4H PRN PRN Reason: Indigestion Ondansetron HCl (Ondansetron 4 Mg/2 Ml Sdv) 4 mg IVPUSH NOW STA Stop: 07/06/20 20:54 Last Admin: 07/06/20 21:35 Dose: 4 mg Documented by: Pantoprazole Sodium (Pantoprazole 40 Mg Vial) 80 mg IVPUSH .BOLUS ONE Stop: 07/06/20 20:54 Last Admin: 07/06/20 21:37 Dose: 80 mg Documented by: Pantoprazole Sodium (Pantoprazole 40 Mg Vial) 40 mg IVPUSH Q24H [facility] Last Admin: 07/06/20 23:48 Dose: Not Given Documented by: Pantoprazole Sodium (Pantoprazole 40 Mg Vial) 40 mg IVPUSH Q24H [facility] Last Admin: 07/07/20 08:45 Dose: 40 mg Documented by: - Exam General: Alert HEENT: Pupils Equal Back Exam: Normal Inspection - Patient Data Result Diagrams: 07/06/20 21:25 07/07/20 06:17 Sepsis Event Note - Evaluation Sepsis Screening Result: No Definite Risk - Focused Exam Vital Signs: Vital Signs Temp Pulse Resp BP Pulse Ox 07/10/20 03:00 97.2 F 69 18 139/87 98 07/09/20 21:30 97.7 F 71 18 143/87 H 97 - Problem List & Annotations (1) Mental retardation SNOMED Code(s): 758482774 Code(s): F79 - UNSPECIFIED INTELLECTUAL DISABILITIES Status: Chronic Current Visit: No (2) Cyclic vomiting syndrome Status: Acute Current Visit: Yes (3) Dehydration SNOMED Code(s): 33636299 Code(s): E86.0 - DEHYDRATION Status: Acute Current Visit: Yes (4) Dysphagia SNOMED Code(s): 74499778, 938683959 Code(s): R13.10 - DYSPHAGIA, UNSPECIFIED Status: Acute Current Visit: No Qualifiers: Dysphagia type: unspecified Qualified Code(s): R13.10 - Dysphagia, unspecified - Problem List Review Problem List Initiated/Reviewed/Updated: Yes - My Orders Last 24 Hours: My Active Orders 07/10/20 08:45 Sodium Chloride 0.9% @ 75 MLS/HR(1000ml) Sodium Chloride 0.9% [Normal Saline] 1,000 ml IV ASDIRECTED - Plan Plan:: Continue IV Fluid replacement,decrease rate to 75 ml/hr.Mom thinks one or two more days.
[2020-07-10] MEDS: Enoxaparin 40 MG/0.4 ML Syringe SUBCUT SCH (20:07)
--- NOTE | 2020-07-11 13:32 | PCM.PN ---
- General Info Date of Service: 07/11/20 Admission Dx/Problem (Free Text): Reduced p.o. intake, dehydration Subjective Update: The patient's parents are in the room and states that she seems to be doing much better. She is eating and drinking close to normal at this time Functional Status: Reports: Pain Controlled, Tolerating Diet, Urinating - Review of Systems HEENT: Reports: Visual Changes Pulmonary: Reports: No Symptoms Cardiovascular: Reports: No Symptoms Gastrointestinal: Reports: Difficulty Swallowing Genitourinary: Reports: No Symptoms Skin: Reports: No Symptoms Neurological: Reports: Other (Developmental delays) Psychiatric: Reports: Other (Developmental delays) - Patient Data Vitals - Most Recent: Last Vital Signs Temp 36.8 C 07/11/20 05:30 Pulse 62 07/11/20 05:30 Resp 18 07/11/20 05:30 BP 140/81 07/11/20 05:30 Pulse Ox 98 07/11/20 05:30 Weight - Most Recent: 37.058 kg I&O - Last 24 Hours: Intake & Output 07/10/20 07/11/20 07/11/20 22:59 06:59 14:59 Intake Total 540 653 Balance 540 653 Med Orders - Current: Current Medications Acetaminophen (Acetaminophen 500 Mg Tab) 500 mg PO TID PRN PRN Reason: Pain Last Admin: 07/09/20 21:58 Dose: 500 mg Documented by: Enoxaparin Sodium (Enoxaparin 40 Mg/0.4 Ml Syringe) 40 mg SUBCUT BEDTIME [facility] Last Admin: 07/10/20 20:07 Dose: 40 mg Documented by: Sodium Chloride (Normal Saline) 1,000 mls @ 75 mls/hr IV ASDIRECTED [facility] Last Admin: 07/10/20 21:45 Dose: 75 mls/hr Documented by: Ketorolac Tromethamine (Ketorolac 15 Mg/Ml Sdv) 15 mg IVPUSH Q6H PRN PRN Reason: Pain Stop: 07/12/20 17:04 Last Admin: 07/08/20 21:22 Dose: 15 mg Documented by: Ondansetron HCl (Ondansetron 4 Mg/2 Ml Sdv) 4 mg IV Q4H PRN PRN Reason: Nausea/Vomiting Discontinued Medications Sodium Chloride (Normal Saline) 1,000 mls @ 999 mls/hr IV ASDIRECTED [facility] Last Admin: 07/06/20 21:47 Dose: 500 mls/hr Documented by: Sodium Chloride (Normal Saline) 1,000 mls @ 125 mls/hr IV ASDIRECTED [facility] Last Admin: 07/10/20 00:59 Dose: 125 mls/hr Documented by: Morphine Sulfate (Morphine 2 Mg/Ml Syringe) 2 mg IVPUSH NOW STA Stop: 07/06/20 20:54 Last Admin: 07/06/20 23:48 Dose: Not Given Documented by: Non-Formulary Medication (Calcium Carb/Vitamin D3/Vit K1 [Viactiv 650 Mg-12.5 Mcg Chew]) 2 tab PO WITHBREAKFAST [facility] Last Admin: 07/07/20 10:26 Dose: Not Given Documented by: Non-Formulary Medication (Chewable Multivitamin) 1 tab PO WITHBREAKFAST [facility] Last Admin: 07/07/20 10:26 Dose: Not Given Documented by: Non-Formulary Medication (Mag Hydrox/Aluminum Hyd/Simeth [Mylanta Maximum Strength Liq]) 30 ml PO Q4H PRN PRN Reason: Indigestion Ondansetron HCl (Ondansetron 4 Mg/2 Ml Sdv) 4 mg IVPUSH NOW STA Stop: 07/06/20 20:54 Last Admin: 07/06/20 21:35 Dose: 4 mg Documented by: Pantoprazole Sodium (Pantoprazole 40 Mg Vial) 80 mg IVPUSH .BOLUS ONE Stop: 07/06/20 20:54 Last Admin: 07/06/20 21:37 Dose: 80 mg Documented by: Pantoprazole Sodium (Pantoprazole 40 Mg Vial) 40 mg IVPUSH Q24H [facility] Last Admin: 07/06/20 23:48 Dose: Not Given Documented by: Pantoprazole Sodium (Pantoprazole 40 Mg Vial) 40 mg IVPUSH Q24H [facility] Last Admin: 07/07/20 08:45 Dose: 40 mg Documented by: Comments:: Patient is sleeping on her right side but is alert and interactive, pleasant - Exam Quality Assessment: Supplemental Oxygen, DVT Prophylaxis, Skin Breakdown General: Alert, Cooperative, No Acute Distress Lungs: Clear to Auscultation Cardiovascular: Regular Rate, Regular Rhythm Extremities: No Pedal Edema Peripheral Pulses: 2+: Radial (L), Radial (R), Dorsalis Pedis (L), Dorsalis Pedis (R) Skin: Warm, Dry Neurological: No New Focal Deficit Psy/Mental Status: Alert - Patient Data Result Diagrams: 07/06/20 21:25 07/07/20 06:17 Sepsis Event Note - Evaluation Sepsis Screening Result: No Definite Risk - Focused Exam Vital Signs: Vital Signs Temp Pulse Resp BP Pulse Ox 07/11/20 05:30 36.8 C 62 18 140/81 98 - Problem List & Annotations (1) Dehydration SNOMED Code(s): 64434744 Code(s): E86.0 - DEHYDRATION Status: Acute Current Visit: Yes (2) GERD (gastroesophageal reflux disease) SNOMED Code(s): 593170046 Code(s): K21.9 - GASTRO-ESOPHAGEAL REFLUX DISEASE WITHOUT ESOPHAGITIS Status: Chronic Current Visit: Yes Qualifiers: Esophagitis presence: with esophagitis Annotation/Comment:: improved with IV Pepcid (3) Dysphagia SNOMED Code(s): 59193631, 831351515 Code(s): R13.10 - DYSPHAGIA, UNSPECIFIED Status: Chronic Current Visit: No Qualifiers: Dysphagia type: unspecified Qualified Code(s): R13.10 - Dysphagia, unspecified (4) Failure to thrive SNOMED Code(s): 78840860 Code(s): BAI3062 - Status: Acute Current Visit: No (5) Microencephaly SNOMED Code(s): 5836370 Code(s): Q02 - MICROCEPHALY Status: Chronic Current Visit: No (6) Palliative care status SNOMED Code(s): 437374468 Code(s): Z51.5 - ENCOUNTER FOR PALLIATIVE CARE Status: Acute Current Visit: No (7) Mental retardation SNOMED Code(s): 531564153 Code(s): F79 - UNSPECIFIED INTELLECTUAL DISABILITIES Status: Chronic Current Visit: No - Problem List Review Problem List Initiated/Reviewed/Updated: Yes - Plan Plan:: Continue IV Fluids Enoxaparin for DVT prophylaxis Likely discharge tomorrow
[2020-07-11] MEDS: Enoxaparin 40 MG/0.4 ML Syringe SUBCUT SCH (20:50)
[2020-07-12] MEDS: Sodium Chloride 0.9% 1,000 ML IV SCH (00:28)
[2020-07-12 09:28] VITALS: BP 160/70; PULSE 70
--- NOTE | 2020-07-12 10:18 | PCM.DCSUM1 ---
Discharge Summary - Hospital Course Free Text/Narrative:: 64-year-old lady with severe developmental difficulties well taken care of by her family was brought to the emergency department due to difficulties with diarrhea. She was rehydrated using normal saline. Vital signs are stable. Patient is eating and drinking normally. Patient will be discharged home today back into the care of her family. Note that her family member found that she had a rectal prolapse this morning. Family is experienced in reducing rectal prolapse and reduced the prolapse without difficulty. Diagnosis: Stroke: No - Discharge Data Discharge Date: 07/12/20 Discharge Disposition: Home, Self-Care 01 Condition: Fair - Referral to Home Health Primary Care Physician: Alli Mendes MD - Discharge Diagnosis/Problem(s) (1) Dehydration SNOMED Code(s): 48380979 ICD Code: E86.0 - DEHYDRATION Status: Acute Current Visit: Yes (2) GERD (gastroesophageal reflux disease) SNOMED Code(s): 933861410 ICD Code: K21.9 - GASTRO-ESOPHAGEAL REFLUX DISEASE WITHOUT ESOPHAGITIS Status: Chronic Current Visit: Yes Problem Details: improved with IV Pepcid Qualifiers: Esophagitis presence: with esophagitis (3) Dysphagia SNOMED Code(s): 40543833, 846851217 ICD Code: R13.10 - DYSPHAGIA, UNSPECIFIED Status: Chronic Current Visit: No Qualifiers: Dysphagia type: unspecified Qualified Code(s): R13.10 - Dysphagia, unspecified (4) Failure to thrive SNOMED Code(s): 10303843 ICD Code: [id number] - Status: Acute Current Visit: No (5) Microencephaly SNOMED Code(s): 3636595 ICD Code: Q02 - MICROCEPHALY Status: Chronic Current Visit: No (6) Palliative care status SNOMED Code(s): 780291223 ICD Code: Z51.5 - ENCOUNTER FOR PALLIATIVE CARE Status: Acute Current Visit: No (7) Mental retardation SNOMED Code(s): 020368021 ICD Code: F79 - UNSPECIFIED INTELLECTUAL DISABILITIES Status: Chronic Current Visit: No - Patient Instructions Diet: Regular Diet as Tolerated Activity: As Tolerated - Discharge Plan *PRESCRIPTION DRUG MONITORING PROGRAM REVIEWED*: Not Applicable *COPY OF PRESCRIPTION DRUG MONITORING REPORT IN PATIENT LAURA: Not Applicable Home Medications: Home Meds Acetaminophen [Tylenol Extra Strength] 500 mg PO TID PRN 11/14/18 [History] Calcium Carb/Vitamin D3/Vit K1 [Viactiv 650 mg-12.5 Mcg Chew] 2 tab PO WITHBREAKFAST 11/14/18 [History] Chewable Multivitamin 1 tab PO WITHBREAKFAST 11/14/18 [History] Lansoprazole [Prevacid] 30 mg PO DAILY 12/28/19 [History] Mag Hydrox/Aluminum Hyd/Simeth [Mylanta Maximum Strength Liq] 30 ml PO Q4H PRN 07/06/20 [History] Patient Handouts: Dehydration, Adult, [id number], Fall Prevention in Hospitals, Adult, Venous Thromboembolism Prevention Forms: ED Department Discharge Referrals: Alli Mendes MD [Primary Care Provider] - - Discharge Summary/Plan Comment DC Time >30 min.: No - General Info Date of Service: 07/12/20 Admission Dx/Problem (Free Text: Reduced p.o. intake, dehydration Subjective Update: Family states that the patient is doing much better. She did have a rectal prolapse as mentioned but the family is experienced with reducing this chronic rectal prolapse and was able to reduce the prolapse without difficulty. Functional Status: Reports: Pain Controlled, Tolerating Diet, Ambulating, Urinating - Review of Systems General: Reports: No Symptoms HEENT: Reports: No Symptoms Pulmonary: Reports: No Symptoms Cardiovascular: Reports: No Symptoms Gastrointestinal: Reports: Other (Fronek rectal prolapse as mentioned) Genitourinary: Reports: No Symptoms Musculoskeletal: Reports: No Symptoms Skin: Reports: No Symptoms Neurological: Reports: Other (Chronic developmental disorders) Psychiatric: Reports: No Symptoms (Chronic developmental delay) - Patient Data Vitals - Most Recent: Last Vital Signs Temp 36.2 C 07/12/20 08:00 Pulse 70 07/12/20 08:00 Resp 16 07/12/20 08:00 BP 160/70 H 07/12/20 08:00 Pulse Ox 98 07/12/20 08:00 Weight - Most Recent: 37.058 kg I&O - Last 24 hours: Intake & Output 07/11/20 07/12/20 07/12/20 22:59 06:59 14:59 Intake Total 374 651 Balance 374 651 Med Orders - Current: Current Medications Acetaminophen (Acetaminophen 500 Mg Tab) 500 mg PO TID PRN PRN Reason: Pain Last Admin: 07/09/20 21:58 Dose: 500 mg Documented by: Enoxaparin Sodium (Enoxaparin 40 Mg/0.4 Ml Syringe) 40 mg SUBCUT BEDTIME [facility] Last Admin: 07/11/20 20:50 Dose: 40 mg Documented by: Sodium Chloride (Normal Saline) 1,000 mls @ 75 mls/hr IV ASDIRECTED [facility] Last Admin: 07/12/20 00:28 Dose: 75 mls/hr Documented by: Ketorolac Tromethamine (Ketorolac 15 Mg/Ml Sdv) 15 mg IVPUSH Q6H PRN PRN Reason: Pain Stop: 07/12/20 17:04 Last Admin: 07/08/20 21:22 Dose: 15 mg Documented by: Ondansetron HCl (Ondansetron 4 Mg/2 Ml Sdv) 4 mg IV Q4H PRN PRN Reason: Nausea/Vomiting Discontinued Medications Sodium Chloride (Normal Saline) 1,000 mls @ 999 mls/hr IV ASDIRECTED [facility] Last Admin: 07/06/20 21:47 Dose: 500 mls/hr Documented by: Sodium Chloride (Normal Saline) 1,000 mls @ 125 mls/hr IV ASDIRECTED [facility] Last Admin: 07/10/20 00:59 Dose: 125 mls/hr Documented by: Morphine Sulfate (Morphine 2 Mg/Ml Syringe) 2 mg IVPUSH NOW STA Stop: 07/06/20 20:54 Last Admin: 07/06/20 23:48 Dose: Not Given Documented by: Non-Formulary Medication (Calcium Carb/Vitamin D3/Vit K1 [Viactiv 650 Mg-12.5 Mcg Chew]) 2 tab PO WITHBREAKFAST [facility] Last Admin: 07/07/20 10:26 Dose: Not Given Documented by: Non-Formulary Medication (Chewable Multivitamin) 1 tab PO WITHBREAKFAST [facility] Last Admin: 07/07/20 10:26 Dose: Not Given Documented by: Non-Formulary Medication (Mag Hydrox/Aluminum Hyd/Simeth [Mylanta Maximum Strength Liq]) 30 ml PO Q4H PRN PRN Reason: Indigestion Ondansetron HCl (Ondansetron 4 Mg/2 Ml Sdv) 4 mg IVPUSH NOW STA Stop: 07/06/20 20:54 Last Admin: 07/06/20 21:35 Dose: 4 mg Documented by: Pantoprazole Sodium (Pantoprazole 40 Mg Vial) 80 mg IVPUSH .BOLUS ONE Stop: 07/06/20 20:54 Last Admin: 07/06/20 21:37 Dose: 80 mg Documented by: Pantoprazole Sodium (Pantoprazole 40 Mg Vial) 40 mg IVPUSH Q24H [facility] Last Admin: 07/06/20 23:48 Dose: Not Given Documented by: Pantoprazole Sodium (Pantoprazole 40 Mg Vial) 40 mg IVPUSH Q24H [facility] Last Admin: 07/07/20 08:45 Dose: 40 mg Documented by: Comments:: Patient was sitting on the edge of the bed with her mother when I entered the room. She is alert, interactive, pleasant - Exam Quality Assessment: Reports: Supplemental Oxygen, DVT Prophylaxis General: Reports: Alert, Oriented, Cooperative, No Acute Distress HEENT: Reports: Other (Left esotropia) Lungs: Reports: Clear to Auscultation Cardiovascular: Reports: Regular Rate, Regular Rhythm Back Exam: Reports: Normal Inspection Extremities: Normal Inspection Skin: Reports: Warm, Dry, Intact Neurological: Reports: No New Focal Deficit Psy/Mental Status: Reports: Alert, Normal Affect, Normal Mood
== END 2020-07-12 12:25 | disposition home or self-care (01) | DRG 392 ==
LOC: FB.ED 20:29 → FB.MS 23:30 → OBSVTOIN 07-07 10:15
PROVIDERS: ADMIT Emergency Medicine; ATTEND Student in an Organized Health Care Education/Training Program
DX: R53.1 Weakness (principal); K21.00 Gastro-esophageal reflux disease with esophagitis, without bleeding; R10.9 Unspecified abdominal pain; E86.0 Dehydration; Q02 Microcephaly; E73.9 Lactose intolerance, unspecified; M41.9 Scoliosis, unspecified; R13.10 Dysphagia, unspecified; R62.50 Unspecified lack of expected normal physiological development in childhood; Z51.5 Encounter for palliative care; F79 Unspecified intellectual disabilities; K62.3 Rectal prolapse; H54.7 Unspecified visual loss; Z96.642 Presence of left artificial hip joint; Z88.8 Allergy status to other drugs, medicaments and biological substances; Z88.5 Allergy status to narcotic agent; Z79.899 Other long term (current) drug therapy; R45.1 Restlessness and agitation; Z20.822 Contact with and (suspected) exposure to COVID-19
CPT/HCPCS: 36415 ×2; 80048; 80053; 81001; 82150; 83690; 85025; C9113 ×2; J1650; J2405; J7030 ×3; U0002; 76700; A9270-GY; J1885

== ENCOUNTER 2020-10-18 09:12 | Observation (INO) | payer MEDICARE, BC, MEDICAID ==
[2020-10-18] MEDS ORDERED: Sodium Chloride 0.9% 500 ML IV ONE (09:30)
[2020-10-18] MEDS ORDERED: Sodium Chloride 0.9% 10 ML Syringe FLUSH PRN (09:30)
[2020-10-18] MEDS ORDERED: Pantoprazole 40 MG Vial IVPUSH ONE (09:37)
--- NOTE | 2020-10-18 09:37 | EDM.PDOC ---
ED HPI GENERAL MEDICAL PROBLEM - General Chief Complaint: General Stated Complaint: DEHYDRATION Time Seen by Provider: 10/18/20 09:31 Source of Information: Reports: Family History Limitations: Reports: Other (Intellectual Disability) - History of Present Illness INITIAL COMMENTS - FREE TEXT/NARRATIVE: Patient has a history of severe developmental delay due to microcephaly. She is unable to give a history. Parents care for her at home. After returning from the [place] on 10[place]16[place]20, parents report patient began to not feel well, father noted her hands and feet to be "ice cold." The next morning they found her to be diaphoretic. Since then she has been crying in pain and burping excessively. Patient did have a small BM yesterday. There has been no vomiting, but she has refused to eat or drink since yesterday. She had similar symptoms in July 2020, was hospitalized for 8 days, thought to be secondary to GERD. Onset Date: 10/16/20 - Related Data Allergies Allergy/AdvReac Type Severity Reaction Status Date / Time metoclopramide [From Reglan] Allergy Agitation Verified 10/18/20 11:30 morphine Allergy Rash Verified 10/18/20 11:30 scopolamine Allergy Agitation Verified 10/18/20 11:30 Home Meds: Home Meds Calcium Carb/Vitamin D3/Vit K1 [Viactiv 650 mg-12.5 Mcg Chew] 2 tab PO WITHBREAKFAST 11/14/18 [History] Chewable Multivitamin 1 tab PO WITHBREAKFAST 11/14/18 [History] Mag Hydrox/Aluminum Hyd/Simeth [Mylanta Maximum Strength Liq] 30 ml PO Q4H PRN 07/06/20 [History] Past Medical History HEENT History: Reports: Impaired Vision, Other (See Below) 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 Gastrointestinal History: Reports: GERD, Other (See Below) Other Gastrointestinal History: lactose intolarant Musculoskeletal History: Reports: Other (See Below) Other Musculoskeletal History: SCOLIOSIS Neurological History: Reports: Other (See Below) Other Neuro History: MICROCEPHALY Psychiatric History: Reports: Developmental Delay - Infectious Disease History Infectious Disease History: Reports: None - Past Surgical History HEENT Surgical History: Reports: Oral Surgery GI Surgical History: Reports: Other (See Below) Other GI Surgeries/Procedures: prior surgery done to prolapsed rectum Neurological Surgical History: Reports: None Musculoskeletal Surgical History: Reports: Hip Replacement Other Musculoskeletal Surgeries/Procedures:: left hip replacement. cyst was removed from tailbone Social & Family History - Family History Family Medical History: No Pertinent Family History Cardiac: Reports: Heart Failure Musculoskeletal: Reports: Back pain, Chronic Endocrine/Metabolic: Reports: Diabetes, type II Hematologic: Reports: Other (See Below) Other Hematologic Family History: unknown blood disorder - Caffeine Use Caffeine Use: Reports: None - Living Situation & Occupation Living situation: Reports: Single Occupation: Disabled ED ROS GENERAL - Review of Systems Review Of Systems: Unable To Obtain Reason Not Obtained: Developmental delay ED EXAM, GENERAL - Physical Exam Exam: See Below Exam Limited By: No Limitations General Appearance: Alert, WD/WN, No Apparent Distress Eye Exam: Bilateral Eye: EOMI, PERRL Ears: Normal External Exam, Normal TMs Nose: Normal Inspection Throat/Mouth: No Airway Compromise, Other (oral mucosa moist) Head: Atraumatic, Normocephalic Respiratory/Chest: No Respiratory Distress, Lungs Clear, Normal Breath Sounds Cardiovascular: Regular Rate, Rhythm, No Murmur GI/Abdominal: Normal Bowel Sounds, Soft, Non-Tender, No Distention Extremities: Normal Inspection Neurological: Alert, Other (moves all 4 extremities) Skin Exam: Warm, Dry, Intact #1 Interpretation EKG Date: 10/18/20 Time: 10:15 Rate (Beats/Min): 93 Jenks: RAD-Right Jenks Deviation P-Wave: Present QRS: Normal ST-T: Normal QT: Normal Comparison: No Change (12/28/2019) Course - Vital Signs Last Recorded V/S: Last Vital Signs Temp 37.6 C 10/18/20 09:15 Pulse 103 H 10/18/20 09:15 Resp 18 10/18/20 09:15 BP 179/92 H 10/18/20 09:15 Pulse Ox 96 10/18/20 09:15 - Orders/Labs/Meds Orders: Active Orders 24 hr Category Date Time Status EKG Documentation Completion [RC] ASDIRECTED Care 10/18/20 09:29 Active Abdomen Pelvis w Cont [CT] Stat Exams 10/18/20 10:47 Taken CULTURE BLOOD [BC] Urgent Lab 10/18/20 10:05 Received CULTURE BLOOD [BC] Urgent Lab 10/18/20 10:05 Received Sodium Chloride 0.9% [Saline Flush] Med 10/18/20 09:30 Active 10 ml FLUSH ASDIRECTED PRN Blood Culture x2 Reflex Set [OM.PC] Urgent Oth 10/18/20 09:28 Ordered Isolation [COMM] Routine Oth 10/18/20 09:29 Ordered Saline Lock Insert [OM.PC] Routine Oth 10/18/20 09:30 Ordered EKG 12 Lead [EK] Stat Ther 10/18/20 09:28 Ordered Medication Orders Sodium Chloride (Sodium Chloride 0.9% 10 Ml Syringe) 10 ml FLUSH ASDIRECTED PRN PRN Reason: Keep Vein Open Last Admin: 10/18/20 09:44 Dose: 10 ml Documented by: DARLING Labs: Laboratory Tests 10/18/20 10/18/20 10/18/20 Range/Units 10:05 10:05 10:05 WBC 5.7 (3.0-10.3) x10-3/uL RBC 4.52 (3.60-5.20) x10(6)uL Hgb 12.7 (11.4-15.5) g/dL Hct 39.6 (34.2-48.2) % MCV 87.6 (76.7-100.5) fL MCH 28.2 (23.9-33.9) pg MCHC 32.2 (31.9-34.8) g/dL RDW 14.2 (12.3-16.5) % Plt Count 272 (151-488) x10(3)uL MPV 7.8 (7.1-12.4) fL Neut % (Auto) 75.6 (30.8-76.2) % Lymph % (Auto) 15.6 L (18.4-52.1) % Prentiss % (Auto) 8.2 (4.4-15.7) % Eos % (Auto) 0.1 L (0.6-8.1) % Baso % (Auto) 0.5 (0.2-1.5) % Neut # (Auto) 4.3 (1.5-6.3) x10-3/uL Lymph # (Auto) 0.9 L (1.0-4.4) x10-3/uL Prentiss # (Auto) 0.5 (0.3-1.0) x10-3/uL Eos # (Auto) 0.0 (0.0-0.8) x10-3/uL Baso # (Auto) 0.0 (0.0-0.1) x10-3/uL Sodium 145 (135-145) mmol/L Potassium 4.0 (3.5-5.3) mmol/L Chloride 108 (100-110) mmol/L Carbon Dioxide 28 (21-32) mmol/L BUN 20 H (7-18) mg/dL Creatinine 0.9 (0.55-1.02) mg/dL Est Cr Clr Drug Dosing 37.42 mL/min Estimated GFR (MDRD) > 60 (>60) BUN/Creatinine Ratio 22.2 H (9-20) Glucose 127 H (80-116) mg/dL Lactic Acid (0.4-2.0) mmol/L Calcium 10.2 (8.6-10.2) mg/dL Magnesium (1.8-2.5) mg/dL Total Bilirubin 0.5 (0.1-1.3) mg/dL AST 11 D (5-25) IU/L ALT 22 D (12-36) U/L Alkaline Phosphatase 118 H (56-112) IU/L Troponin I 5.2 (4.0-60.3) pg/mL Total Protein 7.3 (6.0-8.0) g/dL Albumin 3.6 (3.2-4.6) g/dL Globulin 3.7 g/dL Albumin/Globulin Ratio 1.0 Lipase (73-393) U/L Urine Color (YELLOW) Urine Appearance (CLEAR) Urine pH (5.0-6.5) Ur Specific [place] (1.010-1.025) Urine Protein (NEGATIVE) mg/dL Urine Glucose (UA) (NORMAL) mg/dL Urine Ketones (NEGATIVE) mg/dL Urine Occult Blood (NEGATIVE) Urine Nitrite (NEGATIVE) Urine Bilirubin (NEGATIVE) Urine Urobilinogen (NEGATIVE) mg/dL Ur Leukocyte Esterase (NEGATIVE) Urine WBC (0-5) Ur Squamous Epith Cells (NS,R,O) Urine Bacteria (NS) SARS-CoV-2 RNA (CORRIE) (NEGATIVE) 10/18/20 10/18/20 10/18/20 Range/Units 10:05 10:05 10:05 WBC (3.0-10.3) x10-3/uL RBC (3.60-5.20) x10(6)uL Hgb (11.4-15.5) g/dL Hct (34.2-48.2) % MCV (76.7-100.5) fL MCH (23.9-33.9) pg MCHC (31.9-34.8) g/dL RDW (12.3-16.5) % Plt Count (151-488) x10(3)uL MPV (7.1-12.4) fL Neut % (Auto) (30.8-76.2) % Lymph % (Auto) (18.4-52.1) % Prentiss % (Auto) (4.4-15.7) % Eos % (Auto) (0.6-8.1) % Baso % (Auto) (0.2-1.5) % Neut # (Auto) (1.5-6.3) x10-3/uL Lymph # (Auto) (1.0-4.4) x10-3/uL Prentiss # (Auto) (0.3-1.0) x10-3/uL Eos # (Auto) (0.0-0.8) x10-3/uL Baso # (Auto) (0.0-0.1) x10-3/uL Sodium (135-145) mmol/L Potassium (3.5-5.3) mmol/L Chloride (100-110) mmol/L Carbon Dioxide (21-32) mmol/L BUN (7-18) mg/dL Creatinine (0.55-1.02) mg/dL Est Cr Clr Drug Dosing mL/min Estimated GFR (MDRD) (>60) BUN/Creatinine Ratio (9-20) Glucose (80-116) mg/dL Lactic Acid 1.0 (0.4-2.0) mmol/L Calcium (8.6-10.2) mg/dL Magnesium 2.3 (1.8-2.5) mg/dL Total Bilirubin (0.1-1.3) mg/dL AST (5-25) IU/L ALT (12-36) U/L Alkaline Phosphatase (56-112) IU/L Troponin I (4.0-60.3) pg/mL Total Protein (6.0-8.0) g/dL Albumin (3.2-4.6) g/dL Globulin g/dL Albumin/Globulin Ratio Lipase 52 L (73-393) U/L Urine Color (YELLOW) Urine Appearance (CLEAR) Urine pH (5.0-6.5) Ur Specific [place] (1.010-1.025) Urine Protein (NEGATIVE) mg/dL Urine Glucose (UA) (NORMAL) mg/dL Urine Ketones (NEGATIVE) mg/dL Urine Occult Blood (NEGATIVE) Urine Nitrite (NEGATIVE) Urine Bilirubin (NEGATIVE) Urine Urobilinogen (NEGATIVE) mg/dL Ur Leukocyte Esterase (NEGATIVE) Urine WBC (0-5) Ur Squamous Epith Cells (NS,R,O) Urine Bacteria (NS) SARS-CoV-2 RNA (CORRIE) (NEGATIVE) 10/18/20 10/18/20 Range/Units 10:35 10:35 WBC (3.0-10.3) x10-3/uL RBC (3.60-5.20) x10(6)uL Hgb (11.4-15.5) g/dL Hct (34.2-48.2) % MCV (76.7-100.5) fL MCH (23.9-33.9) pg MCHC (31.9-34.8) g/dL RDW (12.3-16.5) % Plt Count (151-488) x10(3)uL MPV (7.1-12.4) fL Neut % (Auto) (30.8-76.2) % Lymph % (Auto) (18.4-52.1) % Prentiss % (Auto) (4.4-15.7) % Eos % (Auto) (0.6-8.1) % Baso % (Auto) (0.2-1.5) % Neut # (Auto) (1.5-6.3) x10-3/uL Lymph # (Auto) (1.0-4.4) x10-3/uL Prentiss # (Auto) (0.3-1.0) x10-3/uL Eos # (Auto) (0.0-0.8) x10-3/uL Baso # (Auto) (0.0-0.1) x10-3/uL Sodium (135-145) mmol/L Potassium (3.5-5.3) mmol/L Chloride (100-110) mmol/L Carbon Dioxide (21-32) mmol/L BUN (7-18) mg/dL Creatinine (0.55-1.02) mg/dL Est Cr Clr Drug Dosing mL/min Estimated GFR (MDRD) (>60) BUN/Creatinine Ratio (9-20) Glucose (80-116) mg/dL Lactic Acid (0.4-2.0) mmol/L Calcium (8.6-10.2) mg/dL Magnesium (1.8-2.5) mg/dL Total Bilirubin (0.1-1.3) mg/dL AST (5-25) IU/L ALT (12-36) U/L Alkaline Phosphatase (56-112) IU/L Troponin I (4.0-60.3) pg/mL Total Protein (6.0-8.0) g/dL Albumin (3.2-4.6) g/dL Globulin g/dL Albumin/Globulin Ratio Lipase (73-393) U/L Urine Color Yellow (YELLOW) Urine Appearance Clear (CLEAR) Urine pH 6.5 (5.0-6.5) Ur Specific [place] 1.020 (1.010-1.025) Urine Protein Trace (NEGATIVE) mg/dL Urine Glucose (UA) 50 H (NORMAL) mg/dL Urine Ketones 15 H (NEGATIVE) mg/dL Urine Occult Blood Negative (NEGATIVE) Urine Nitrite Negative (NEGATIVE) Urine Bilirubin Negative (NEGATIVE) Urine Urobilinogen Normal (NEGATIVE) mg/dL Ur Leukocyte Esterase Negative (NEGATIVE) Urine WBC 0-5 (0-5) Ur Squamous Epith Cells Occasional (NS,R,O) Urine Bacteria Few H (NS) SARS-CoV-2 RNA (CORRIE) Negative (NEGATIVE) Meds: Medications Generic Name Dose Route Start Last Admin Trade Name Freq PRN Reason Stop Dose Admin Sodium Chloride 10 ml 10/18/20 09:30 10/18/20 09:44 Sodium Chloride 0.9% 10 Ml Syringe FLUSH 10 ml ASDIRECTED PRN Administration Keep Vein Open Discontinued Medications Generic Name Dose Route Start Last Admin Trade Name Freq PRN Reason Stop Dose Admin Sodium Chloride 500 mls @ 500 mls/hr 10/18/20 09:30 10/18/20 09:44 Normal Saline IV 10/18/20 10:29 500 mls/hr .BOLUS ONE Administration Iopamidol 75 ml 10/18/20 11:39 10/18/20 11:56 Iopamidol 755 Mg/Ml 75 Ml Bottle IV 10/18/20 11:40 60 ml ASDIRECTED ONE Administration Pantoprazole Sodium 40 mg 10/18/20 09:37 10/18/20 09:49 Pantoprazole 40 Mg Vial IVPUSH 10/18/20 09:38 40 mg ONETIME ONE Administration - Radiology Interpretation Free Text/Narrative:: CT Abd/Pelvis w/ IV contrast: Scoliosis, no perforation or obstruction. (verbal report from Dr. Renner) - Re-Assessments/Exams Free Text/Narrative Re-Assessment/Exam: 10/18/20 12:42 Dr. Donovan agrees to admit patient to observation. Departure - Departure Time of Disposition: 12:43 Disposition: Refer to Observation Condition: Fair Clinical Impression: Mild dehydration Failure to thrive Qualifiers: Failure to thrive age range: in adult Qualified Code(s): R62.7 - Adult failure to thrive GERD (gastroesophageal reflux disease) Qualifiers: Esophagitis presence: with esophagitis Qualified Code(s): K21.0 - Gastro- esophageal reflux disease with esophagitis - Discharge Information Referrals: Alli Mendes MD [Primary Care Provider] - Forms: ED Department Discharge Sepsis Event Note (ED) - Evaluation Sepsis Screening Result: No Definite Risk - Focused Exam Vital Signs: Vital Signs Temp Pulse Resp BP Pulse Ox 10/18/20 09:15 37.6 C 103 H 18 179/92 H 96 - My Orders Last 24 Hours: My Active Orders 10/18/20 09:28 Blood Culture x2 Reflex Set [OM.PC] Urgent EKG 12 Lead [EK] Stat 10/18/20 09:29 EKG Documentation Completion [RC] ASDIRECTED Isolation [COMM] Routine 10/18/20 09:30 Sodium Chloride 0.9% [Saline Flush] 10 ml FLUSH ASDIRECTED PRN Saline Lock Insert [OM.PC] Routine 10/18/20 10:05 CULTURE BLOOD [BC] Urgent CULTURE BLOOD [BC] Urgent 10/18/20 10:47 Abdomen Pelvis w Cont [CT] Stat - Assessment/Plan Last 24 Hours: My Active Orders 10/18/20 09:28 Blood Culture x2 Reflex Set [OM.PC] Urgent EKG 12 Lead [EK] Stat 10/18/20 09:29 EKG Documentation Completion [RC] ASDIRECTED Isolation [COMM] Routine 10/18/20 09:30 Sodium Chloride 0.9% [Saline Flush] 10 ml FLUSH ASDIRECTED PRN Saline Lock Insert [OM.PC] Routine 10/18/20 10:05 CULTURE BLOOD [BC] Urgent CULTURE BLOOD [BC] Urgent 10/18/20 10:47 Abdomen Pelvis w Cont [CT] Stat
[2020-10-18] MEDS ORDERED: Iopamidol 755 Mg/ML 75 ML Bottle IV ONE (11:39)
--- NOTE | 2020-10-18 12:43 | CT ---
INDICATION: Belching, abdominal pain. CT ABDOMEN AND PELVIS WITH CONTRAST: Spiral 3.75 mm axial sections were obtained through the abdomen and pelvis with 60 mL Isovue-370 at 1.3 mL per second with sagittal and coronal reconstructions 10/18/20 - no comparisons. Total exam DLP was 288.90 milligray-cm. The lower lung grissom and pleural spaces visualized were unremarkable. The heart did not appear enlarged. No pericardial effusion was seen. Severe rotoscoliosis dextroconcave is noted in the lumbar spine with severe degenerative disc disease at L3-L4 with vacuum disc phenomenon and lateral shift of L3 on L4 to the left. Anterolisthesis grade 1 to 2 is noted at L3-L4 additionally. A 12 mm probable simple cyst is noted at the posterior medial right lobe of the liver, axial image 14. Small irregular shape low-density area is noted x2 in the right lobe laterally likely not of clinical significance with a few other tiny low-density areas unable to be quantitated and likely not of clinical concern at this time. No intrahepatic ductal dilatation was seen. No gallstones were demonstrated. The adrenal glands were not well seen. No gross abnormality was seen of the adrenal glands. There is a low-density lesion in the mid pole lateral cortex of the right kidney and the upper pole lateral cortex of the left kidney likely representing simple cysts. No solid renal masses were suggested. The spleen appeared unremarkable. The pancreas was visualized and appeared grossly normal. Pancreatic duct was normal in caliber. Common bile duct was normal in caliber. No definite retroperitoneal mass was seen. A moderate amount of gas and stool is noted in the colon including the rectum. A definite mechanical obstruction is not identified of the bowel. No definite free air was seen in the abdomen. The appendix is not definitely visualized. Total hip arthroplasty is noted on the left producing hard beam artifact limiting visualization of structures in the pelvis in those portions of the pelvis affected. IMPRESSION: 1. Degenerative changes, disc disease, rotoscoliosis with anterolisthesis and lateral shift to the left of L3 with respect to L4. 2. Minimal low-density areas in the liver and kidneys likely simple cysts. 3. The study is somewhat limited by lack of intraperitoneal fat. 4. Total hip arthroplasty on the left. Report was called to Dr. Espinosa at 1221 hours 10/18/20. [facility]
--- NOTE | 2020-10-18 14:18 | PCM.HP.2 ---
H&P History of Present Illness - General Date of Service: 10/18/20 Admit Problem/Dx: Admission Diagnosis/Problem Admission Diagnosis/Problem Failure to thrive Source of Information: Patient, Family (Mom) - History of Present Illness Initial Comments - Free Text/Narative: Holly has history of severe developmental delay due to microcephaly. She is unable to give a history. Her parents care for her at home. [place], her mom reports that she began to not feel well. The next morning they found her to be diaphoretic, mom thought she had an accident as her gown was soaked but was from sweating. Since then she has been crying in pain especially with her hips, back and burping excessively. Patient did have a small BM yesterday. There has been no vomiting, but she has refused to eat or drink since yesterday. She had similar symptoms in July 2020, was hospitalized for 8 days, thought to be secondary to GERD. Mom has been using Mylanta Extra Strength with simethicone as needed but she would not take any of that yesterday. She usually gives her Activa yogurt in the mornings and she had 2 gambian fries on the weekend but mom didn't think that made things worse. Mom also reports that she had rectal prolapse repaired when she was younger but how having a partial one but stool are soft and does not have any issues with this currently. Abdominal Pain Score (Numeric/FACES): 8 - Related Data Allergies/Adverse Reactions: Allergies Allergy/AdvReac Type Severity Reaction Status Date / Time metoclopramide [From Reglan] Allergy Agitation Verified 10/18/20 11:30 morphine Allergy Rash Verified 10/18/20 11:30 scopolamine Allergy Agitation Verified 10/18/20 11:30 Home Medications: Home Meds Calcium Carb/Vitamin D3/Vit K1 [Viactiv 650 mg-12.5 Mcg Chew] 2 tab PO WITHBREAKFAST 11/14/18 [History] Chewable Multivitamin 1 tab PO WITHBREAKFAST 11/14/18 [History] Mag Hydrox/Aluminum Hyd/Simeth [Mylanta Maximum Strength Liq] 30 ml PO Q4H PRN 07/06/20 [History] Past Medical History HEENT History: Reports: Impaired Vision, Other (See Below) 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 Cardiovascular History: Reports: None Respiratory History: Reports: None Gastrointestinal History: Reports: GERD, Other (See Below) Other Gastrointestinal History: lactose intolarant, rectal prolapse Genitourinary History: Reports: None Musculoskeletal History: Reports: Other (See Below) Other Musculoskeletal History: SCOLIOSIS Neurological History: Reports: Other (See Below) Other Neuro History: MICROCEPHALY Psychiatric History: Reports: Developmental Delay - Infectious Disease History Infectious Disease History: Reports: None - Past Surgical History HEENT Surgical History: Reports: Oral Surgery Cardiovascular Surgical History: Reports: None Respiratory Surgical History: Reports: None GI Surgical History: Reports: Other (See Below) Other GI Surgeries/Procedures: prior surgery done to prolapsed rectum Neurological Surgical History: Reports: None Musculoskeletal Surgical History: Reports: Hip Replacement Other Musculoskeletal Surgeries/Procedures:: left hip replacement. cyst was removed from tailbone Social & Family History - Family History Family Medical History: No Pertinent Family History Cardiac: Reports: Heart Failure Musculoskeletal: Reports: Back pain, Chronic Endocrine/Metabolic: Reports: Diabetes, type II Hematologic: Reports: Other (See Below) Other Hematologic Family History: unknown blood disorder - Tobacco Use Tobacco Use Status *Q: Never Tobacco User Second Hand Smoke Exposure: No - Caffeine Use Caffeine Use: Reports: None - Recreational Drug Use Recreational Drug Use: No - Living Situation & Occupation Living situation: Reports: Single Occupation: Disabled H&P Review of Systems - Review of Systems: Review Of Systems: Unable To Obtain Reason Not Obtained: developmental delay, obtained from mother Exam - Exam Exam: See Below - Vital Signs Vital Signs: Last Vital Signs Temp 98.7 F 10/18/20 13:11 Pulse 91 10/18/20 13:11 Resp 18 10/18/20 13:11 BP 174/86 H 10/18/20 13:11 Pulse Ox 98 10/18/20 13:11 Weight: 85 lb - Exam General: Alert (burping but nonverbal currently) HEENT: PERRLA, EOMI, Other (Microcephalic). No: Mucosa Moist & [place]: Trachea Midline, Lymphadenopathy Lungs: Clear to Auscultation, Normal Respiratory Effort Cardiovascular: Regular Rate, Regular Rhythm GI/Abdominal Exam: Normal Bowel Sounds, Soft, Non-Tender, No Distention (Female) Exam: Deferred Rectal (Female) Exam: Deferred Extremities: No Pedal Edema, Normal Capillary Refill, Pallor Peripheral Pulses: 2+: Radial (L), Radial (R) - Patient Data Lab Results Last 24 hrs: Laboratory Results - last 24 hr 10/18/20 10/18/20 10/18/20 Range/Units 10:05 10:05 10:05 WBC 5.7 (3.0-10.3) x10-3/uL RBC 4.52 (3.60-5.20) x10(6)uL Hgb 12.7 (11.4-15.5) g/dL Hct 39.6 (34.2-48.2) % MCV 87.6 (76.7-100.5) fL MCH 28.2 (23.9-33.9) pg MCHC 32.2 (31.9-34.8) g/dL RDW 14.2 (12.3-16.5) % Plt Count 272 (151-488) x10(3)uL MPV 7.8 (7.1-12.4) fL Neut % (Auto) 75.6 (30.8-76.2) % Lymph % (Auto) 15.6 L (18.4-52.1) % Mchenry % (Auto) 8.2 (4.4-15.7) % Eos % (Auto) 0.1 L (0.6-8.1) % Baso % (Auto) 0.5 (0.2-1.5) % Neut # (Auto) 4.3 (1.5-6.3) x10-3/uL Lymph # (Auto) 0.9 L (1.0-4.4) x10-3/uL Mchenry # (Auto) 0.5 (0.3-1.0) x10-3/uL Eos # (Auto) 0.0 (0.0-0.8) x10-3/uL Baso # (Auto) 0.0 (0.0-0.1) x10-3/uL Sodium 145 (135-145) mmol/L Potassium 4.0 (3.5-5.3) mmol/L Chloride 108 (100-110) mmol/L Carbon Dioxide 28 (21-32) mmol/L BUN 20 H (7-18) mg/dL Creatinine 0.9 (0.55-1.02) mg/dL Est Cr Clr Drug Dosing 37.42 mL/min Estimated GFR (MDRD) > 60 (>60) BUN/Creatinine Ratio 22.2 H (9-20) Glucose 127 H (80-116) mg/dL Lactic Acid (0.4-2.0) mmol/L Calcium 10.2 (8.6-10.2) mg/dL Magnesium (1.8-2.5) mg/dL Total Bilirubin 0.5 (0.1-1.3) mg/dL AST 11 D (5-25) IU/L ALT 22 D (12-36) U/L Alkaline Phosphatase 118 H (56-112) IU/L Troponin I 5.2 (4.0-60.3) pg/mL Total Protein 7.3 (6.0-8.0) g/dL Albumin 3.6 (3.2-4.6) g/dL Globulin 3.7 g/dL Albumin/Globulin Ratio 1.0 Lipase (73-393) U/L Urine Color (YELLOW) Urine Appearance (CLEAR) Urine pH (5.0-6.5) Ur Specific [place] (1.010-1.025) Urine Protein (NEGATIVE) mg/dL Urine Glucose (UA) (NORMAL) mg/dL Urine Ketones (NEGATIVE) mg/dL Urine Occult Blood (NEGATIVE) Urine Nitrite (NEGATIVE) Urine Bilirubin (NEGATIVE) Urine Urobilinogen (NEGATIVE) mg/dL Ur Leukocyte Esterase (NEGATIVE) Urine WBC (0-5) Ur Squamous Epith Cells (NS,R,O) Urine Bacteria (NS) SARS-CoV-2 RNA (CORRIE) (NEGATIVE) 10/18/20 10/18/20 10/18/20 Range/Units 10:05 10:05 10:05 WBC (3.0-10.3) x10-3/uL RBC (3.60-5.20) x10(6)uL Hgb (11.4-15.5) g/dL Hct (34.2-48.2) % MCV (76.7-100.5) fL MCH (23.9-33.9) pg MCHC (31.9-34.8) g/dL RDW (12.3-16.5) % Plt Count (151-488) x10(3)uL MPV (7.1-12.4) fL Neut % (Auto) (30.8-76.2) % Lymph % (Auto) (18.4-52.1) % Mchenry % (Auto) (4.4-15.7) % Eos % (Auto) (0.6-8.1) % Baso % (Auto) (0.2-1.5) % Neut # (Auto) (1.5-6.3) x10-3/uL Lymph # (Auto) (1.0-4.4) x10-3/uL Mchenry # (Auto) (0.3-1.0) x10-3/uL Eos # (Auto) (0.0-0.8) x10-3/uL Baso # (Auto) (0.0-0.1) x10-3/uL Sodium (135-145) mmol/L Potassium (3.5-5.3) mmol/L Chloride (100-110) mmol/L Carbon Dioxide (21-32) mmol/L BUN (7-18) mg/dL Creatinine (0.55-1.02) mg/dL Est Cr Clr Drug Dosing mL/min Estimated GFR (MDRD) (>60) BUN/Creatinine Ratio (9-20) Glucose (80-116) mg/dL Lactic Acid 1.0 (0.4-2.0) mmol/L Calcium (8.6-10.2) mg/dL Magnesium 2.3 (1.8-2.5) mg/dL Total Bilirubin (0.1-1.3) mg/dL AST (5-25) IU/L ALT (12-36) U/L Alkaline Phosphatase (56-112) IU/L Troponin I (4.0-60.3) pg/mL Total Protein (6.0-8.0) g/dL Albumin (3.2-4.6) g/dL Globulin g/dL Albumin/Globulin Ratio Lipase 52 L (73-393) U/L Urine Color (YELLOW) Urine Appearance (CLEAR) Urine pH (5.0-6.5) Ur Specific [place] (1.010-1.025) Urine Protein (NEGATIVE) mg/dL Urine Glucose (UA) (NORMAL) mg/dL Urine Ketones (NEGATIVE) mg/dL Urine Occult Blood (NEGATIVE) Urine Nitrite (NEGATIVE) Urine Bilirubin (NEGATIVE) Urine Urobilinogen (NEGATIVE) mg/dL Ur Leukocyte Esterase (NEGATIVE) Urine WBC (0-5) Ur Squamous Epith Cells (NS,R,O) Urine Bacteria (NS) SARS-CoV-2 RNA (CORRIE) (NEGATIVE) 10/18/20 10/18/20 Range/Units 10:35 10:35 WBC (3.0-10.3) x10-3/uL RBC (3.60-5.20) x10(6)uL Hgb (11.4-15.5) g/dL Hct (34.2-48.2) % MCV (76.7-100.5) fL MCH (23.9-33.9) pg MCHC (31.9-34.8) g/dL RDW (12.3-16.5) % Plt Count (151-488) x10(3)uL MPV (7.1-12.4) fL Neut % (Auto) (30.8-76.2) % Lymph % (Auto) (18.4-52.1) % Mchenry % (Auto) (4.4-15.7) % Eos % (Auto) (0.6-8.1) % Baso % (Auto) (0.2-1.5) % Neut # (Auto) (1.5-6.3) x10-3/uL Lymph # (Auto) (1.0-4.4) x10-3/uL Mchenry # (Auto) (0.3-1.0) x10-3/uL Eos # (Auto) (0.0-0.8) x10-3/uL Baso # (Auto) (0.0-0.1) x10-3/uL Sodium (135-145) mmol/L Potassium (3.5-5.3) mmol/L Chloride (100-110) mmol/L Carbon Dioxide (21-32) mmol/L BUN (7-18) mg/dL Creatinine (0.55-1.02) mg/dL Est Cr Clr Drug Dosing mL/min Estimated GFR (MDRD) (>60) BUN/Creatinine Ratio (9-20) Glucose (80-116) mg/dL Lactic Acid (0.4-2.0) mmol/L Calcium (8.6-10.2) mg/dL Magnesium (1.8-2.5) mg/dL Total Bilirubin (0.1-1.3) mg/dL AST (5-25) IU/L ALT (12-36) U/L Alkaline Phosphatase (56-112) IU/L Troponin I (4.0-60.3) pg/mL Total Protein (6.0-8.0) g/dL Albumin (3.2-4.6) g/dL Globulin g/dL Albumin/Globulin Ratio Lipase (73-393) U/L Urine Color Yellow (YELLOW) Urine Appearance Clear (CLEAR) Urine pH 6.5 (5.0-6.5) Ur Specific [place] 1.020 (1.010-1.025) Urine Protein Trace (NEGATIVE) mg/dL Urine Glucose (UA) 50 H (NORMAL) mg/dL Urine Ketones 15 H (NEGATIVE) mg/dL Urine Occult Blood Negative (NEGATIVE) Urine Nitrite Negative (NEGATIVE) Urine Bilirubin Negative (NEGATIVE) Urine Urobilinogen Normal (NEGATIVE) mg/dL Ur Leukocyte Esterase Negative (NEGATIVE) Urine WBC 0-5 (0-5) Ur Squamous Epith Cells Occasional (NS,R,O) Urine Bacteria Few H (NS) SARS-CoV-2 RNA (CORRIE) Negative (NEGATIVE) Result Diagrams: 10/18/20 10:05 10/18/20 10:05 Michael Results Last 24 hrs: Microbiology 10/18/20 10:35 Influenza Type A Antigen Screen - Final Nasopharyngeal Swab NEGATIVE INFLUENZA A VIRUS AG REFERENCE RANGE: NEGATIVE Influenza Type B Antigen Screen - Final NEGATIVE INFLUENZA B VIRUS AG REFERENCE RANGE: NEGATIVE Sepsis Event Note - Evaluation Sepsis Screening Result: No Definite Risk - Focused Exam Vital Signs: Vital Signs Temp Pulse Resp BP Pulse Ox 10/18/20 13:11 98.7 F 91 18 174/86 H 98 10/18/20 12:57 99.9 F 87 18 183/93 H 98 10/18/20 09:15 99.7 F 103 H 18 179/92 H 96 *Q Meaningful Use (ADM) - VTE Risk Assess *Q Each Risk Factor Represents 1 Point: None Total Score 1 Point Risk Factors: 0 Each Risk Factor Represents 2 Points: Age 60 - 74 Years Total Score 2 Point Risk Factors: 2 Each Risk Factor Represents 3 Points: None Total Score 3 Point Risk Factors: 0 Each Risk Factor Represents 5 Points: None Total Score 5 Point Risk Factors: 0 Venous Thromboembolism Risk Factor Score *Q: 2 - Problem List (1) Failure to thrive SNOMED Code(s): 96829170 ICD Code: PCX5267 - Status: Acute Current Visit: Yes Qualifiers: Failure to thrive age range: in adult Qualified Code(s): R62.7 - Adult failure to thrive (2) Mild dehydration SNOMED Code(s): 2091781772526 ICD Code: E86.0 - DEHYDRATION Status: Acute Current Visit: Yes (3) GERD (gastroesophageal reflux disease) SNOMED Code(s): 550542762 ICD Code: K21.9 - GASTRO-ESOPHAGEAL REFLUX DISEASE WITHOUT ESOPHAGITIS Status: Chronic Current Visit: Yes Problem Details: improved with IV Pepcid Qualifiers: Esophagitis presence: with esophagitis (4) Mental retardation SNOMED Code(s): 578899837 ICD Code: F79 - UNSPECIFIED INTELLECTUAL DISABILITIES Status: Chronic Current Visit: No (5) Microencephaly SNOMED Code(s): 4441876 ICD Code: Q02 - MICROCEPHALY Status: Chronic Current Visit: No (6) Seizure disorder SNOMED Code(s): 476746258 ICD Code: G40.909 - EPILEPSY, UNSP, NOT INTRACTABLE, WITHOUT STATUS EPILEPTIC US Status: Chronic Current Visit: No (7) Partial rectal prolapse SNOMED Code(s): 28927810 ICD Code: K62.3 - RECTAL PROLAPSE Status: Chronic Current Visit: Yes (8) Palliative care status SNOMED Code(s): 861844038 ICD Code: Z51.5 - ENCOUNTER FOR PALLIATIVE CARE Status: Chronic Current Visit: No Problem List Initiated/Reviewed/Updated: Yes Orders Last 24hrs: Active Orders 24 hr Category Date Time Status Admission Status [Patient Status] [ADT] Routine ADT 10/18/20 12:40 Active Bedrest Bedside Commode [RC] ASDIRECTED Care 10/18/20 14:06 Ordered EKG Documentation Completion [RC] ASDIRECTED Care 10/18/20 09:29 Active Oxygen Therapy [RC] PRN Care 10/18/20 14:07 Ordered VTE/DVT Education [RC] Per Unit Routine Care 10/18/20 14:07 Ordered Vital Signs [RC] QSHIFT Care 10/18/20 14:07 Ordered Clear Liquid Diet [DIET] Diet 10/18/20 Dinner Ordered BASIC METABOLIC PANEL,BMP [CHEM] Routine Lab 10/19/20 06:00 Ordered CULTURE BLOOD [BC] Urgent Lab 10/18/20 10:05 Received CULTURE BLOOD [BC] Urgent Lab 10/18/20 10:05 Received Acetaminophen [Tylenol] Med 10/18/20 14:14 Active 650 mg RECTAL Q6H PRN Calcium Carbonate [Tums] Med 10/18/20 14:15 Ordered 500 mg PO Q2HR PRN Ketorolac [Toradol] Med 10/18/20 14:13 Ordered 15 mg IVPUSH Q6H PRN Pantoprazole [ProTONIX IV] Med 10/18/20 21:00 Ordered 40 mg IVPUSH BID Sodium Chloride 0.9% [Normal Saline] 1,000 ml Med 10/18/20 14:15 Active IV ASDIRECTED Sodium Chloride 0.9% [Saline Flush] Med 10/18/20 09:30 Active 10 ml FLUSH ASDIRECTED PRN Blood Culture x2 Reflex Set [OM.PC] Urgent Oth 10/18/20 09:28 Ordered Isolation [COMM] Routine Oth 10/18/20 09:29 Ordered Saline Lock Insert [OM.PC] Routine Oth 10/18/20 09:30 Ordered Resuscitation Status Routine Resus Stat 10/18/20 14:06 Ordered EKG 12 Lead [EK] Stat Ther 10/18/20 09:28 Ordered Medication Orders Acetaminophen (Acetaminophen 650 Mg Supp) 650 mg RECTAL Q6H PRN PRN Reason: PAIN Calcium Carbonate/Glycine (Calcium Carbonate 500 Mg Tab.Chew) 500 mg PO Q2H PRN PRN Reason: Indigestion Sodium Chloride (Normal Saline) 1,000 mls @ 125 mls/hr IV ASDIRECTED BLANE Ketorolac Tromethamine (Ketorolac 15 Mg/Ml Sdv) 15 mg IVPUSH Q6H PRN PRN Reason: Pain Pantoprazole Sodium (Pantoprazole 40 Mg Vial) 40 mg IVPUSH BID BLANE Sodium Chloride (Sodium Chloride 0.9% 10 Ml Syringe) 10 ml FLUSH ASDIRECTED PRN PRN Reason: Keep Vein Open Last Admin: 10/18/20 09:44 Dose: 10 ml Documented by: DARLING Assessment/Plan Comment:: 1. Admit for observation for mild dehydration, failure to thrive in adult, GERD. 2. Mild dehydration: NS at 125 ml/hr, received 500 ml bolus in ER. Will decrease as her oral intake improves. Repeat BMP tomorrow. 3. GERD/belching: Protonix 40 mg IV bid, Tums 500 mg q2h as needed indigestion. Pain in back & hips per mom, will do Toradol 15 mg q6h as needed in conjunction with Tylenol 650 mg OH q6h as needed to help with pain. 4. Diet: clears, will advance as tolerated. Mom will order room service for her since she knows what her preferences are. 5. Activity: bedrest with commode. 6. DVT prophylaxis: Lovenox 40 mg SQ daily. 7. CODE STATUS: DNR/DNI. 8. Discharge planning: anticipate requiring 24-48 hours of IV fluids, advance diet. Adjust treatments as necessary. - Mortality Measure Prognosis:: Poor
[2020-10-18] MEDS: Sodium Chloride 0.9% 1,000 ML IV SCH ×2 (14:43→22:45)
[2020-10-18] MEDS: Ketorolac 15 MG/ML SDV IVPUSH PRN ×2 (14:44→21:17)
[2020-10-18] MEDS: Acetaminophen 650 MG Supp RECTAL PRN ×2 (14:46→14:53)
[2020-10-18] MEDS: Calcium Carbonate 500 MG Tab.Chew PO PRN ×3 (14:49→14:57)
[2020-10-18] MEDS: Enoxaparin 40 MG/0.4 ML Syringe SUBCUT SCH (16:01)
[2020-10-18] MEDS: Pantoprazole 40 MG Vial IVPUSH SCH (21:17)
[2020-10-19] MEDS: Acetaminophen 650 MG Supp RECTAL PRN ×3 (01:42→20:42)
[2020-10-19] MEDS: Sodium Chloride 0.9% 1,000 ML IV SCH ×2 (06:19→17:48)
[2020-10-19] MEDS: Pantoprazole 40 MG Vial IVPUSH SCH ×2 (09:26→20:41)
[2020-10-19] MEDS: Ketorolac 15 MG/ML SDV IVPUSH PRN (09:59)
--- NOTE | 2020-10-19 10:20 | PCM.PN ---
- General Info Date of Service: 10/19/20 Subjective Update: Holly has had good urine output since admission, she had 1000 ml yesterday and 800 ml overnight. She drank about 400 ml of clear liquids and has tolerated. No nausea or vomiting. She is asking for water this morning. She had Tylenol CA and Ketorolac IM yesterday for pain. Mom wanted the doses split up today. She also wanted to know if she could get some Tylenol suppositories to have at home when she won't take her Tylenol liquid. She has had some small BM but mom states she will maybe have 1 large bowel movement a week and usually just small daily ones. - Patient Data Vitals - Most Recent: Last Vital Signs Temp 98.2 F 10/19/20 02:00 Pulse 84 10/19/20 02:00 Resp 18 10/19/20 02:00 BP 147/79 H 10/19/20 02:00 Pulse Ox 96 10/19/20 02:00 Weight - Most Recent: 85 lb I&O - Last 24 Hours: Intake & Output 10/18/20 10/19/20 10/19/20 22:59 06:59 14:59 Intake Total 833 1494 Output Total 660 800 Balance 173 694 Lab Results Last 24 Hours: Laboratory Results - last 24 hr 10/18/20 10/18/20 10/18/20 Range/Units 10:05 10:05 10:05 WBC 5.7 (3.0-10.3) x10-3/uL RBC 4.52 (3.60-5.20) x10(6)uL Hgb 12.7 (11.4-15.5) g/dL Hct 39.6 (34.2-48.2) % MCV 87.6 (76.7-100.5) fL MCH 28.2 (23.9-33.9) pg MCHC 32.2 (31.9-34.8) g/dL RDW 14.2 (12.3-16.5) % Plt Count 272 (151-488) x10(3)uL MPV 7.8 (7.1-12.4) fL Neut % (Auto) 75.6 (30.8-76.2) % Lymph % (Auto) 15.6 L (18.4-52.1) % [place] % (Auto) 8.2 (4.4-15.7) % Eos % (Auto) 0.1 L (0.6-8.1) % Baso % (Auto) 0.5 (0.2-1.5) % Neut # (Auto) 4.3 (1.5-6.3) x10-3/uL Lymph # (Auto) 0.9 L (1.0-4.4) x10-3/uL [place] # (Auto) 0.5 (0.3-1.0) x10-3/uL Eos # (Auto) 0.0 (0.0-0.8) x10-3/uL Baso # (Auto) 0.0 (0.0-0.1) x10-3/uL Sodium 145 (135-145) mmol/L Potassium 4.0 (3.5-5.3) mmol/L Chloride 108 (100-110) mmol/L Carbon Dioxide 28 (21-32) mmol/L BUN 20 H (7-18) mg/dL Creatinine 0.9 (0.55-1.02) mg/dL Est Cr Clr Drug Dosing 37.42 mL/min Estimated GFR (MDRD) > 60 (>60) BUN/Creatinine Ratio 22.2 H (9-20) Glucose 127 H (80-116) mg/dL Lactic Acid (0.4-2.0) mmol/L Calcium 10.2 (8.6-10.2) mg/dL Magnesium (1.8-2.5) mg/dL Total Bilirubin 0.5 (0.1-1.3) mg/dL AST 11 D (5-25) IU/L ALT 22 D (12-36) U/L Alkaline Phosphatase 118 H (56-112) IU/L Troponin I 5.2 (4.0-60.3) pg/mL Total Protein 7.3 (6.0-8.0) g/dL Albumin 3.6 (3.2-4.6) g/dL Globulin 3.7 g/dL Albumin/Globulin Ratio 1.0 Lipase (73-393) U/L Urine Color (YELLOW) Urine Appearance (CLEAR) Urine pH (5.0-6.5) Ur Specific [place] (1.010-1.025) Urine Protein (NEGATIVE) mg/dL Urine Glucose (UA) (NORMAL) mg/dL Urine Ketones (NEGATIVE) mg/dL Urine Occult Blood (NEGATIVE) Urine Nitrite (NEGATIVE) Urine Bilirubin (NEGATIVE) Urine Urobilinogen (NEGATIVE) mg/dL Ur Leukocyte Esterase (NEGATIVE) Urine WBC (0-5) Ur Squamous Epith Cells (NS,R,O) Urine Bacteria (NS) SARS-CoV-2 RNA (CORRIE) (NEGATIVE) 10/18/20 10/18/20 10/18/20 Range/Units 10:05 10:05 10:05 WBC (3.0-10.3) x10-3/uL RBC (3.60-5.20) x10(6)uL Hgb (11.4-15.5) g/dL Hct (34.2-48.2) % MCV (76.7-100.5) fL MCH (23.9-33.9) pg MCHC (31.9-34.8) g/dL RDW (12.3-16.5) % Plt Count (151-488) x10(3)uL MPV (7.1-12.4) fL Neut % (Auto) (30.8-76.2) % Lymph % (Auto) (18.4-52.1) % [place] % (Auto) (4.4-15.7) % Eos % (Auto) (0.6-8.1) % Baso % (Auto) (0.2-1.5) % Neut # (Auto) (1.5-6.3) x10-3/uL Lymph # (Auto) (1.0-4.4) x10-3/uL [place] # (Auto) (0.3-1.0) x10-3/uL Eos # (Auto) (0.0-0.8) x10-3/uL Baso # (Auto) (0.0-0.1) x10-3/uL Sodium (135-145) mmol/L Potassium (3.5-5.3) mmol/L Chloride (100-110) mmol/L Carbon Dioxide (21-32) mmol/L BUN (7-18) mg/dL Creatinine (0.55-1.02) mg/dL Est Cr Clr Drug Dosing mL/min Estimated GFR (MDRD) (>60) BUN/Creatinine Ratio (9-20) Glucose (80-116) mg/dL Lactic Acid 1.0 (0.4-2.0) mmol/L Calcium (8.6-10.2) mg/dL Magnesium 2.3 (1.8-2.5) mg/dL Total Bilirubin (0.1-1.3) mg/dL AST (5-25) IU/L ALT (12-36) U/L Alkaline Phosphatase (56-112) IU/L Troponin I (4.0-60.3) pg/mL Total Protein (6.0-8.0) g/dL Albumin (3.2-4.6) g/dL Globulin g/dL Albumin/Globulin Ratio Lipase 52 L (73-393) U/L Urine Color (YELLOW) Urine Appearance (CLEAR) Urine pH (5.0-6.5) Ur Specific [place] (1.010-1.025) Urine Protein (NEGATIVE) mg/dL Urine Glucose (UA) (NORMAL) mg/dL Urine Ketones (NEGATIVE) mg/dL Urine Occult Blood (NEGATIVE) Urine Nitrite (NEGATIVE) Urine Bilirubin (NEGATIVE) Urine Urobilinogen (NEGATIVE) mg/dL Ur Leukocyte Esterase (NEGATIVE) Urine WBC (0-5) Ur Squamous Epith Cells (NS,R,O) Urine Bacteria (NS) SARS-CoV-2 RNA (CORRIE) (NEGATIVE) 10/18/20 10/18/20 10/19/20 Range/Units 10:35 10:35 06:10 WBC (3.0-10.3) x10-3/uL RBC (3.60-5.20) x10(6)uL Hgb (11.4-15.5) g/dL Hct (34.2-48.2) % MCV (76.7-100.5) fL MCH (23.9-33.9) pg MCHC (31.9-34.8) g/dL RDW (12.3-16.5) % Plt Count (151-488) x10(3)uL MPV (7.1-12.4) fL Neut % (Auto) (30.8-76.2) % Lymph % (Auto) (18.4-52.1) % [place] % (Auto) (4.4-15.7) % Eos % (Auto) (0.6-8.1) % Baso % (Auto) (0.2-1.5) % Neut # (Auto) (1.5-6.3) x10-3/uL Lymph # (Auto) (1.0-4.4) x10-3/uL [place] # (Auto) (0.3-1.0) x10-3/uL Eos # (Auto) (0.0-0.8) x10-3/uL Baso # (Auto) (0.0-0.1) x10-3/uL Sodium 145 (135-145) mmol/L Potassium 4.6 (3.5-5.3) mmol/L Chloride 111 H (100-110) mmol/L Carbon Dioxide 24 (21-32) mmol/L BUN 19 H (7-18) mg/dL Creatinine 0.8 (0.55-1.02) mg/dL Est Cr Clr Drug Dosing 42.10 mL/min Estimated GFR (MDRD) > 60 (>60) BUN/Creatinine Ratio 23.8 H (9-20) Glucose 90 (80-116) mg/dL Lactic Acid (0.4-2.0) mmol/L Calcium 9.8 (8.6-10.2) mg/dL Magnesium (1.8-2.5) mg/dL Total Bilirubin (0.1-1.3) mg/dL AST (5-25) IU/L ALT (12-36) U/L Alkaline Phosphatase (56-112) IU/L Troponin I (4.0-60.3) pg/mL Total Protein (6.0-8.0) g/dL Albumin (3.2-4.6) g/dL Globulin g/dL Albumin/Globulin Ratio Lipase (73-393) U/L Urine Color Yellow (YELLOW) Urine Appearance Clear (CLEAR) Urine pH 6.5 (5.0-6.5) Ur Specific [place] 1.020 (1.010-1.025) Urine Protein Trace (NEGATIVE) mg/dL Urine Glucose (UA) 50 H (NORMAL) mg/dL Urine Ketones 15 H (NEGATIVE) mg/dL Urine Occult Blood Negative (NEGATIVE) Urine Nitrite Negative (NEGATIVE) Urine Bilirubin Negative (NEGATIVE) Urine Urobilinogen Normal (NEGATIVE) mg/dL Ur Leukocyte Esterase Negative (NEGATIVE) Urine WBC 0-5 (0-5) Ur Squamous Epith Cells Occasional (NS,R,O) Urine Bacteria Few H (NS) SARS-CoV-2 RNA (CORRIE) Negative (NEGATIVE) Michael Results Last 24 Hours: Microbiology 10/18/20 10:35 Influenza Type A Antigen Screen - Final Nasopharyngeal Swab NEGATIVE INFLUENZA A VIRUS AG REFERENCE RANGE: NEGATIVE Influenza Type B Antigen Screen - Final NEGATIVE INFLUENZA B VIRUS AG REFERENCE RANGE: NEGATIVE Med Orders - Current: Current Medications Acetaminophen (Acetaminophen 650 Mg Supp) 650 mg RECTAL Q6H PRN PRN Reason: PAIN Last Admin: 10/19/20 08:49 Dose: 650 mg Documented by: Calcium Carbonate/Glycine (Calcium Carbonate 500 Mg Tab.Chew) 500 mg PO Q2H PRN PRN Reason: Indigestion Last Admin: 10/18/20 14:57 Dose: 500 mg Documented by: Enoxaparin Sodium (Enoxaparin 40 Mg/0.4 Ml Syringe) 40 mg SUBCUT DAILY@1600 [facility] Last Admin: 10/18/20 16:01 Dose: 40 mg Documented by: Sodium Chloride (Normal Saline) 1,000 mls @ 75 mls/hr IV ASDIRECTED [facility] Last Admin: 10/19/20 06:19 Dose: 125 mls/hr Documented by: Ketorolac Tromethamine (Ketorolac 15 Mg/Ml Sdv) 15 mg IVPUSH Q6H PRN PRN Reason: Pain Last Admin: 10/19/20 09:59 Dose: 15 mg Documented by: Pantoprazole Sodium (Pantoprazole 40 Mg Vial) 40 mg IVPUSH BID [facility] Last Admin: 10/19/20 09:26 Dose: 40 mg Documented by: Sodium Chloride (Sodium Chloride 0.9% 10 Ml Syringe) 10 ml FLUSH ASDIRECTED PRN PRN Reason: Keep Vein Open Last Admin: 10/18/20 09:44 Dose: 10 ml Documented by: Discontinued Medications Sodium Chloride (Normal Saline) 500 mls @ 500 mls/hr IV .BOLUS ONE Stop: 10/18/20 10:29 Last Admin: 10/18/20 09:44 Dose: 500 mls/hr Documented by: Iopamidol (Iopamidol 755 Mg/Ml 75 Ml Bottle) 75 ml IV ASDIRECTED ONE Stop: 10/18/20 11:40 Last Admin: 10/18/20 11:56 Dose: 60 ml Documented by: Pantoprazole Sodium (Pantoprazole 40 Mg Vial) 40 mg IVPUSH ONETIME ONE Stop: 10/18/20 09:38 Last Admin: 10/18/20 09:49 Dose: 40 mg Documented by: - Exam General: Alert, Oriented (person), Cooperative, No Acute Distress Lungs: Clear to Auscultation, Normal Respiratory Effort Cardiovascular: Regular Rate, Regular Rhythm GI/Abdominal Exam: Normal Bowel Sounds, Soft, Non-Tender, No Distention Extremities: No Pedal Edema - Patient Data Lab Results Last 24 hrs: Laboratory Results - last 24 hr 10/18/20 10/18/20 10/18/20 Range/Units 10:05 10:05 10:05 WBC 5.7 (3.0-10.3) x10-3/uL RBC 4.52 (3.60-5.20) x10(6)uL Hgb 12.7 (11.4-15.5) g/dL Hct 39.6 (34.2-48.2) % MCV 87.6 (76.7-100.5) fL MCH 28.2 (23.9-33.9) pg MCHC 32.2 (31.9-34.8) g/dL RDW 14.2 (12.3-16.5) % Plt Count 272 (151-488) x10(3)uL MPV 7.8 (7.1-12.4) fL Neut % (Auto) 75.6 (30.8-76.2) % Lymph % (Auto) 15.6 L (18.4-52.1) % [place] % (Auto) 8.2 (4.4-15.7) % Eos % (Auto) 0.1 L (0.6-8.1) % Baso % (Auto) 0.5 (0.2-1.5) % Neut # (Auto) 4.3 (1.5-6.3) x10-3/uL Lymph # (Auto) 0.9 L (1.0-4.4) x10-3/uL [place] # (Auto) 0.5 (0.3-1.0) x10-3/uL Eos # (Auto) 0.0 (0.0-0.8) x10-3/uL Baso # (Auto) 0.0 (0.0-0.1) x10-3/uL Sodium 145 (135-145) mmol/L Potassium 4.0 (3.5-5.3) mmol/L Chloride 108 (100-110) mmol/L Carbon Dioxide 28 (21-32) mmol/L BUN 20 H (7-18) mg/dL Creatinine 0.9 (0.55-1.02) mg/dL Est Cr Clr Drug Dosing 37.42 mL/min Estimated GFR (MDRD) > 60 (>60) BUN/Creatinine Ratio 22.2 H (9-20) Glucose 127 H (80-116) mg/dL Lactic Acid (0.4-2.0) mmol/L Calcium 10.2 (8.6-10.2) mg/dL Magnesium (1.8-2.5) mg/dL Total Bilirubin 0.5 (0.1-1.3) mg/dL AST 11 D (5-25) IU/L ALT 22 D (12-36) U/L Alkaline Phosphatase 118 H (56-112) IU/L Troponin I 5.2 (4.0-60.3) pg/mL Total Protein 7.3 (6.0-8.0) g/dL Albumin 3.6 (3.2-4.6) g/dL Globulin 3.7 g/dL Albumin/Globulin Ratio 1.0 Lipase (73-393) U/L Urine Color (YELLOW) Urine Appearance (CLEAR) Urine pH (5.0-6.5) Ur Specific [place] (1.010-1.025) Urine Protein (NEGATIVE) mg/dL Urine Glucose (UA) (NORMAL) mg/dL Urine Ketones (NEGATIVE) mg/dL Urine Occult Blood (NEGATIVE) Urine Nitrite (NEGATIVE) Urine Bilirubin (NEGATIVE) Urine Urobilinogen (NEGATIVE) mg/dL Ur Leukocyte Esterase (NEGATIVE) Urine WBC (0-5) Ur Squamous Epith Cells (NS,R,O) Urine Bacteria (NS) SARS-CoV-2 RNA (CORRIE) (NEGATIVE) 10/18/20 10/18/20 10/18/20 Range/Units 10:05 10:05 10:05 WBC (3.0-10.3) x10-3/uL RBC (3.60-5.20) x10(6)uL Hgb (11.4-15.5) g/dL Hct (34.2-48.2) % MCV (76.7-100.5) fL MCH (23.9-33.9) pg MCHC (31.9-34.8) g/dL RDW (12.3-16.5) % Plt Count (151-488) x10(3)uL MPV (7.1-12.4) fL Neut % (Auto) (30.8-76.2) % Lymph % (Auto) (18.4-52.1) % [place] % (Auto) (4.4-15.7) % Eos % (Auto) (0.6-8.1) % Baso % (Auto) (0.2-1.5) % Neut # (Auto) (1.5-6.3) x10-3/uL Lymph # (Auto) (1.0-4.4) x10-3/uL [place] # (Auto) (0.3-1.0) x10-3/uL Eos # (Auto) (0.0-0.8) x10-3/uL Baso # (Auto) (0.0-0.1) x10-3/uL Sodium (135-145) mmol/L Potassium (3.5-5.3) mmol/L Chloride (100-110) mmol/L Carbon Dioxide (21-32) mmol/L BUN (7-18) mg/dL Creatinine (0.55-1.02) mg/dL Est Cr Clr Drug Dosing mL/min Estimated GFR (MDRD) (>60) BUN/Creatinine Ratio (9-20) Glucose (80-116) mg/dL Lactic Acid 1.0 (0.4-2.0) mmol/L Calcium (8.6-10.2) mg/dL Magnesium 2.3 (1.8-2.5) mg/dL Total Bilirubin (0.1-1.3) mg/dL AST (5-25) IU/L ALT (12-36) U/L Alkaline Phosphatase (56-112) IU/L Troponin I (4.0-60.3) pg/mL Total Protein (6.0-8.0) g/dL Albumin (3.2-4.6) g/dL Globulin g/dL Albumin/Globulin Ratio Lipase 52 L (73-393) U/L Urine Color (YELLOW) Urine Appearance (CLEAR) Urine pH (5.0-6.5) Ur Specific [place] (1.010-1.025) Urine Protein (NEGATIVE) mg/dL Urine Glucose (UA) (NORMAL) mg/dL Urine Ketones (NEGATIVE) mg/dL Urine Occult Blood (NEGATIVE) Urine Nitrite (NEGATIVE) Urine Bilirubin (NEGATIVE) Urine Urobilinogen (NEGATIVE) mg/dL Ur Leukocyte Esterase (NEGATIVE) Urine WBC (0-5) Ur Squamous Epith Cells (NS,R,O) Urine Bacteria (NS) SARS-CoV-2 RNA (CORRIE) (NEGATIVE) 10/18/20 10/18/20 10/19/20 Range/Units 10:35 10:35 06:10 WBC (3.0-10.3) x10-3/uL RBC (3.60-5.20) x10(6)uL Hgb (11.4-15.5) g/dL Hct (34.2-48.2) % MCV (76.7-100.5) fL MCH (23.9-33.9) pg MCHC (31.9-34.8) g/dL RDW (12.3-16.5) % Plt Count (151-488) x10(3)uL MPV (7.1-12.4) fL Neut % (Auto) (30.8-76.2) % Lymph % (Auto) (18.4-52.1) % [place] % (Auto) (4.4-15.7) % Eos % (Auto) (0.6-8.1) % Baso % (Auto) (0.2-1.5) % Neut # (Auto) (1.5-6.3) x10-3/uL Lymph # (Auto) (1.0-4.4) x10-3/uL [place] # (Auto) (0.3-1.0) x10-3/uL Eos # (Auto) (0.0-0.8) x10-3/uL Baso # (Auto) (0.0-0.1) x10-3/uL Sodium 145 (135-145) mmol/L Potassium 4.6 (3.5-5.3) mmol/L Chloride 111 H (100-110) mmol/L Carbon Dioxide 24 (21-32) mmol/L BUN 19 H (7-18) mg/dL Creatinine 0.8 (0.55-1.02) mg/dL Est Cr Clr Drug Dosing 42.10 mL/min Estimated GFR (MDRD) > 60 (>60) BUN/Creatinine Ratio 23.8 H (9-20) Glucose 90 (80-116) mg/dL Lactic Acid (0.4-2.0) mmol/L Calcium 9.8 (8.6-10.2) mg/dL Magnesium (1.8-2.5) mg/dL Total Bilirubin (0.1-1.3) mg/dL AST (5-25) IU/L ALT (12-36) U/L Alkaline Phosphatase (56-112) IU/L Troponin I (4.0-60.3) pg/mL Total Protein (6.0-8.0) g/dL Albumin (3.2-4.6) g/dL Globulin g/dL Albumin/Globulin Ratio Lipase (73-393) U/L Urine Color Yellow (YELLOW) Urine Appearance Clear (CLEAR) Urine pH 6.5 (5.0-6.5) Ur Specific [place] 1.020 (1.010-1.025) Urine Protein Trace (NEGATIVE) mg/dL Urine Glucose (UA) 50 H (NORMAL) mg/dL Urine Ketones 15 H (NEGATIVE) mg/dL Urine Occult Blood Negative (NEGATIVE) Urine Nitrite Negative (NEGATIVE) Urine Bilirubin Negative (NEGATIVE) Urine Urobilinogen Normal (NEGATIVE) mg/dL Ur Leukocyte Esterase Negative (NEGATIVE) Urine WBC 0-5 (0-5) Ur Squamous Epith Cells Occasional (NS,R,O) Urine Bacteria Few H (NS) SARS-CoV-2 RNA (CORRIE) Negative (NEGATIVE) Result Diagrams: 10/18/20 10:05 10/19/20 06:10 Michael Results Last 24 hrs: Microbiology 10/18/20 10:35 Influenza Type A Antigen Screen - Final Nasopharyngeal Swab NEGATIVE INFLUENZA A VIRUS AG REFERENCE RANGE: NEGATIVE Influenza Type B Antigen Screen - Final NEGATIVE INFLUENZA B VIRUS AG REFERENCE RANGE: NEGATIVE Sepsis Event Note - Evaluation Sepsis Screening Result: No Definite Risk - Focused Exam Vital Signs: Vital Signs Temp Pulse Resp BP Pulse Ox 10/19/20 02:00 98.2 F 84 18 147/79 H 96 10/19/20 00:00 98.4 F 90 16 97 - Problem List & Annotations (1) Failure to thrive SNOMED Code(s): 97773038 Code(s): KOL0437 - Status: Acute Current Visit: Yes Qualifiers: Failure to thrive age range: in adult Qualified Code(s): R62.7 - Adult failure to thrive (2) Mild dehydration SNOMED Code(s): 1259507628008 Code(s): E86.0 - DEHYDRATION Status: Acute Current Visit: Yes Annotation/Comment:: improving (3) GERD (gastroesophageal reflux disease) SNOMED Code(s): 127253023 Code(s): K21.9 - GASTRO-ESOPHAGEAL REFLUX DISEASE WITHOUT ESOPHAGITIS Status: Chronic Current Visit: Yes Qualifiers: Esophagitis presence: with esophagitis Annotation/Comment:: improved with IV Pepcid (4) Mental retardation SNOMED Code(s): 274806271 Code(s): F79 - UNSPECIFIED INTELLECTUAL DISABILITIES Status: Chronic Current Visit: No (5) Microencephaly SNOMED Code(s): 5209897 Code(s): Q02 - MICROCEPHALY Status: Chronic Current Visit: No (6) Seizure disorder SNOMED Code(s): 229035016 Code(s): G40.909 - EPILEPSY, UNSP, NOT INTRACTABLE, WITHOUT STATUS EPILEPTICUS Status: Chronic Current Visit: No (7) Partial rectal prolapse SNOMED Code(s): 39112442 Code(s): K62.3 - RECTAL PROLAPSE Status: Chronic Current Visit: Yes (8) Palliative care status SNOMED Code(s): 353359156 Code(s): Z51.5 - ENCOUNTER FOR PALLIATIVE CARE Status: Chronic Current Visit: No - Problem List Review Problem List Initiated/Reviewed/Updated: Yes - My Orders Last 24 Hours: My Active Orders 10/18/20 14:06 Bedrest Bedside Commode [RC] ASDIRECTED Resuscitation Status Routine 10/18/20 14:07 Oxygen Therapy [RC] PRN VTE/DVT Education [RC] Per Unit Routine Vital Signs [RC] QSHIFT 10/18/20 14:14 Acetaminophen [Tylenol] 650 mg RECTAL Q6H PRN 08/16/21 14:15 Calcium Carbonate [Tums] 500 mg PO Q2H PRN Sodium Chloride 0.9% [Normal Saline] 1,000 ml IV ASDIRECTED 10/18/20 14:17 Ketorolac [Toradol] 15 mg IVPUSH Q6H PRN 10/18/20 16:00 Enoxaparin [Lovenox] 40 mg SUBCUT DAILY@1600 10/18/20 21:00 Pantoprazole [ProTONIX IV] 40 mg IVPUSH BID 10/19/20 Breakfast Regular Diet [DIET] - Plan Plan:: 1. Mild dehydration: NS decrease to 75 ml/hr. Drank 400 ml yesterday with clear liquids, if continues to improve oral intake will saline lock maybe later today. 2. GERD/belching: Protonix 40 mg IV bid, Tums 500 mg q2h as needed indigestion, she has not used the Tums but mom will see if she will take today. Pain controll ed, Toradol 15 mg q6h as needed or Tylenol 650 mg CA q6h as needed to help with pain. 3. Diet: Advance to regular Mom will order room service for her since she knows what her preferences are. 4. Activity: as tolerated. 5. Discharge planning: anticipate discharge tomorrow, will see how her oral inta ke is today. Adjust treatments as necessary.
[2020-10-19] MEDS ORDERED: Ondansetron 4 MG/2 ML SDV IVPUSH ONE (13:27)
[2020-10-19] MEDS: Enoxaparin 40 MG/0.4 ML Syringe SUBCUT SCH (16:07)
[2020-10-20] MEDS: Ketorolac 15 MG/ML SDV IVPUSH PRN (01:14)
[2020-10-20] MEDS ORDERED: Simethicone Drops 40 MG/0.6 ML 30 ML Bottle PO PRN (07:59)
[2020-10-20] MEDS: Pantoprazole 40 MG Vial IVPUSH SCH (08:02)
[2020-10-20] MEDS: Sodium Chloride 0.9% 1,000 ML IV SCH (08:06)
[2020-10-20] MEDS ORDERED: Triamcinolone Acetonide 0.1% Crm 15 GM Tube TOP SCH (13:30)
[2020-10-20 15:40] VITALS: BP 144/77; PULSE 64
--- NOTE | 2020-10-20 16:06 | PCM.DCSUM1 ---
Discharge Summary - Hospital Course HPI Initial Comments: Holly has history of severe developmental delay due to microcephaly. She is unable to give a history. Her parents care for her at home. After they were at the [place] on 10/16/20, her mom reports that she began to not feel well. The next morning they found her to be diaphoretic, mom thought she had an accident as her gown was soaked but was from sweating. Since then she has been crying in pain especially with her hips, back and burping excessively. Patient did have a small BM yesterday. There has been no vomiting, but she has refused to eat or drink since yesterday. She had similar symptoms in July 2020, was hospitalized for 8 days, thought to be secondary to GERD. Mom has been using Mylanta Extra Strength with simethicone as needed but she would not take any of that yesterday. She usually gives her Activa yogurt in the mornings and she had 2 german fries on the weekend but mom didn't think that made things worse. Mom also reports that she had rectal prolapse repaired when she was younger but how having a partial one but stool are soft and does not have any issues with this currently. - Discharge Data Discharge Date: 10/20/20 Discharge Disposition: Home, Self-Care 01 Condition: Good - Referral to Home Health Primary Care Physician: Alli Mendes MD - Discharge Diagnosis/Problem(s) (1) Failure to thrive SNOMED Code(s): 30611142 ICD Code: [id number] - Status: Chronic Current Visit: Yes Qualifiers: Failure to thrive age range: in adult Qualified Code(s): R62.7 - Adult failure to thrive (2) Mild dehydration SNOMED Code(s): 1635250540071 ICD Code: E86.0 - DEHYDRATION Status: Resolved Current Visit: Yes Problem Details: improving (3) GERD (gastroesophageal reflux disease) SNOMED Code(s): 427443446 ICD Code: K21.9 - GASTRO-ESOPHAGEAL REFLUX DISEASE WITHOUT ESOPHAGITIS Status: Chronic Current Visit: Yes Problem Details: improved with IVF and Mylicon drops & Mylanta Max Qualifiers: Esophagitis presence: with esophagitis (4) Mental retardation SNOMED Code(s): 295983548 ICD Code: F79 - UNSPECIFIED INTELLECTUAL DISABILITIES Status: Chronic Current Visit: No (5) Microencephaly SNOMED Code(s): 6656039 ICD Code: Q02 - MICROCEPHALY Status: Chronic Current Visit: No (6) Seizure disorder SNOMED Code(s): 394654152 ICD Code: G40.909 - EPILEPSY, UNSP, NOT INTRACTABLE, WITHOUT STATUS EPILEPTICUS Status: Chronic Current Visit: No (7) Partial rectal prolapse SNOMED Code(s): 04783775 ICD Code: K62.3 - RECTAL PROLAPSE Status: Chronic Current Visit: Yes (8) Palliative care status SNOMED Code(s): 903262172 ICD Code: Z51.5 - ENCOUNTER FOR PALLIATIVE CARE Status: Chronic Current Visit: No (9) Irritant contact dermatitis SNOMED Code(s): 371473768 ICD Code: L24.9 - IRRITANT CONTACT DERMATITIS, UNSPECIFIED CAUSE Status: Acute Current Visit: Yes - Patient Summary/Data Hospital Course: She was admitted for dehydration and not eating, she received NS at 125 ml/hr for 24 hours then decreased to 75 ml/hr. Her IV infiltrated this morning so IV was discontinued. She received Protonix 40 mg IV bid since admission. Added her home Mylanta Maximum strength but would not take it so Mylicon drops were added 40 mg/0.6ml, 80 mg qid started. Her drinking had improved yesterday but her eating improved after the Mylicon drops. She tolerated mashed potatoes for lunch, was more interactive with her parents and staff. She did have some belching after lunch and was given Mylanta and she took it. Found to have a contact dermatitis to right [place] this morning with surrounding excoriations. NT, warm but not hot, she was started on Triamcinolone 0.1% cream bid for 2 weeks on and 2 weeks off until cleared. She will be discharged into the care of her parents, they do not require any services at this time. - Patient Instructions Diet: Usual Diet as Tolerated Activity: As Tolerated Driving: Do Not Drive Showering/Bathing: May Shower Notify Provider of: Increased Pain, Nausea and/or Vomiting Other/Special Instructions: Follow up with Alli Mendes in 2-3 days to see how she is doing. - Discharge Plan *PRESCRIPTION DRUG MONITORING PROGRAM REVIEWED*: Not Applicable *COPY OF PRESCRIPTION DRUG MONITORING REPORT IN PATIENT LAURA: Not Applicable Prescriptions/Med Rec: Acetaminophen [Tylenol] 650 mg RECTAL Q6H PRN #10 supp PRN Reason: PAIN Home Medications: Home Meds Calcium Carb/Vitamin D3/Vit K1 [Viactiv 650 mg-12.5 Mcg Chew] 2 tab PO WITHBREAKFAST 11/14/18 [History] Chewable Multivitamin 1 tab PO WITHBREAKFAST 11/14/18 [History] Mag Hydrox/Aluminum Hyd/Simeth [Mylanta Maximum Strength Liq] 30 ml PO Q4H PRN 07/06/20 [History] Acetaminophen [Tylenol] 650 mg RECTAL Q6H PRN #10 supp 10/20/20 [Rx] Simethicone [Infants' Gas Relief] 80 mg PO QID PRN bottle 10/20/20 [Rx] Triamcinolone Acetonide [Triamcinolone Acetonide 0.1% Crm] 0 gm TOP BID tube 10/20/20 [Rx] Oxygen Therapy Mode: Room Air Patient Handouts: Dehydration, Adult, [id number], Venous Thromboembolism Prevention Forms: ED Department Discharge Referrals: Alli Mendes MD [Primary Care Provider] - - Discharge Summary/Plan Comment DC Time >30 min.: No Total # of Minutes for Discharge Time: 20 min - General Info Date of Service: 10/20/20 Subjective Update: Holly feeling better today, she was sitting up this morning had some belching after she ate some pudding. After she received some Mylicon drops she felt b dima was able to eat mashed potatoes for lunch then mom gave Mylanta she uses at home. Mom feels she is at her baseline. - Patient Data Vitals - Most Recent: Last Vital Signs Temp 98.1 F 10/20/20 08:15 Pulse 64 10/20/20 08:15 Resp 16 10/20/20 08:15 BP 144/77 H 10/20/20 08:15 Pulse Ox 99 10/20/20 08:15 Weight - Most Recent: 85 lb I&O - Last 24 hours: Intake & Output 10/20/20 10/20/20 10/20/20 06:59 14:59 22:59 Intake Total 1293 Output Total 350 Balance 943 SINDY Results - Last 24 hrs: Microbiology 10/18/20 10:05 Aerobic Blood Culture - Preliminary Blood - Venous - Lab Draw NO GROWTH AFTER 2 DAYS Anaerobic Blood Culture - Preliminary NO GROWTH AFTER 2 DAYS 10/18/20 10:05 Aerobic Blood Culture - Preliminary Blood - Venous NO GROWTH AFTER 2 DAYS Anaerobic Blood Culture - Preliminary NO GROWTH AFTER 2 DAYS Med Orders - Current: Current Medications Acetaminophen (Acetaminophen 650 Mg Supp) 650 mg RECTAL Q6H PRN PRN Reason: PAIN Last Admin: 10/19/20 20:42 Dose: 650 mg Documented by: Calcium Carbonate/Glycine (Calcium Carbonate 500 Mg Tab.Chew) 500 mg PO Q2H PRN PRN Reason: Indigestion Last Admin: 10/18/20 14:57 Dose: 500 mg Documented by: Enoxaparin Sodium (Enoxaparin 40 Mg/0.4 Ml Syringe) 40 mg SUBCUT DAILY@1600 [facility] Last Admin: 10/19/20 16:07 Dose: 40 mg Documented by: Sodium Chloride (Normal Saline) 1,000 mls @ 75 mls/hr IV ASDIRECTED [facility] Last Admin: 10/20/20 08:06 Dose: 75 mls/hr Documented by: Ketorolac Tromethamine (Ketorolac 15 Mg/Ml Sdv) 15 mg IVPUSH Q6H PRN PRN Reason: Pain Last Admin: 10/20/20 01:14 Dose: 15 mg Documented by: Mylanta Maximum (Strength *Ptom) 30 ml PO Q4H PRN PRN Reason: Indigestion Last Admin: 10/20/20 15:10 Dose: 30 ml Documented by: Pantoprazole Sodium (Pantoprazole 40 Mg Vial) 40 mg IVPUSH BID [facility] Last Admin: 10/20/20 08:02 Dose: 40 mg Documented by: Simethicone (Simethicone Drops 40 Mg/0.6 Ml 30 Ml Bottle) 80 mg PO QID PRN PRN Reason: GAS PAIN/BELCHING Last Admin: 10/20/20 08:30 Dose: 1.2 ml Documented by: Sodium Chloride (Sodium Chloride 0.9% 10 Ml Syringe) 10 ml FLUSH ASDIRECTED PRN PRN Reason: Keep Vein Open Last Admin: 10/18/20 09:44 Dose: 10 ml Documented by: Triamcinolone Acetonide (Triamcinolone Acetonide 0.1% Crm 15 Gm Tube) 0 gm TOP BID [facility] Stop: 11/03/20 13:31 Last Admin: 10/20/20 14:00 Dose: 1 dose Documented by: Discontinued Medications Sodium Chloride (Normal Saline) 500 mls @ 500 mls/hr IV .BOLUS ONE Stop: 10/18/20 10:29 Last Admin: 10/18/20 09:44 Dose: 500 mls/hr Documented by: Iopamidol (Iopamidol 755 Mg/Ml 75 Ml Bottle) 75 ml IV ASDIRECTED ONE Stop: 10/18/20 11:40 Last Admin: 10/18/20 11:56 Dose: 60 ml Documented by: Pantoprazole Sodium (Pantoprazole 40 Mg Vial) 40 mg IVPUSH ONETIME ONE Stop: 10/18/20 09:38 Last Admin: 10/18/20 09:49 Dose: 40 mg Documented by: - Exam General: Reports: Alert, Oriented (person), Cooperative, No Acute Distress Lungs: Reports: Clear to Auscultation, Normal Respiratory Effort Cardiovascular: Reports: Regular Rate, Regular Rhythm GI/Abdominal Exam: Normal Bowel Sounds, Soft, Non-Tender, No Distention Skin: Reports: Rash (rectangular sandpaper macular rash 3 cm x 4 cm on right [place], excoriations around it)
[2020-10-20] MEDS: Enoxaparin 40 MG/0.4 ML Syringe SUBCUT SCH (17:36)
== END 2020-10-20 17:10 | disposition home or self-care (01) ==
LOC: FB.ED 09:12 → FB.MS 12:57
PROVIDERS: ADMIT Family Medicine; ATTEND Family Medicine
DX: E86.0 Dehydration (principal); R62.7 Adult failure to thrive; K21.00 Gastro-esophageal reflux disease with esophagitis, without bleeding; F79 Unspecified intellectual disabilities; Q02 Microcephaly; G40.909 Epilepsy, unspecified, not intractable, without status epilepticus; K62.3 Rectal prolapse; Z20.822 Contact with and (suspected) exposure to COVID-19; Z51.5 Encounter for palliative care; E11.9 Type 2 diabetes mellitus without complications; L24.9 Irritant contact dermatitis, unspecified cause; Z88.6 Allergy status to analgesic agent; Z88.8 Allergy status to other drugs, medicaments and biological substances
CPT/HCPCS: 36415; 74177; 80048; 80053; 81001; 83605; 83690; 83735; 84484; 85025; 87040; 87804; 93005; 96361; 96372; 96374; 96375; 96376; 99285; A9270; C9113; G0378; J1650; J1885; J7030; J7040; Q9967; U0002

== ENCOUNTER 2021-02-02 17:17 | Emergency (ER) | payer MEDICARE, BC, MEDICAID ==
--- NOTE | 2021-02-02 17:55 | EDM.PDOC ---
ED HPI GENERAL MEDICAL PROBLEM - General Chief Complaint: Gastrointestinal Problem Stated Complaint: TROUBLE SWALLOWING Time Seen by Provider: 02/02/21 17:48 Source of Information: Reports: Family (Patient's mother) History Limitations: Reports: Other (Patient is unable to give any history secondary to her development delay.) - History of Present Illness INITIAL COMMENTS - FREE TEXT/NARRATIVE: 65-year-old female who has mental retardation and developmental delay and is a total care patient of her mother who presents to the emergency department with inability to swallow. She began having some decreased by mouth intake on Sunday according to the mother and although she was able to take food and liquids then she did not really seem to be herself. The following day she was even less herself and was less able to take food or fluids and the symptoms have progressively worsened to the point of over the past 36 hours she is really not taking anything by mouth. She has appear to be in some pain and the mother has treated her with Tylenol suppositories but she states whenever she tries to give her anything to drink even spooning in water, the patient will just let the f luid dribble out and will not swallow and when she tries to swallow, she reports that it hurts. She also seems to belch and complains of pain when she does that as well. The patient is nonverbal and really can give me no history. All the history that I obtain comes from the patient's mother. The mother reports that the patient has had urine output but only 2 episodes today and they have been decreased fevers. No diarrhea. In fact, she had a normal bowel movement yesterday. The patient has apparently had this happen multiple times in the past and every other time that this has happened, she has required admission to the hospital with IV fluids and medication for control of acid reflux and esophagitis. Nothing else has ever been found besides that. His is really limited of the history that I can obtain. There are no other associated signs or symptoms. There are no other modifying factors. Onset: Other (5 days ago) Duration: Getting Worse Location: Reports: Chest (The patient does hold her upper throat and chest and say "oww" when she tries to swallow.) Quality: Reports: Other (Unknown) Severity: Moderate Improves with: Reports: None Worsens with: Reports: Other (Swallowing) Context: Reports: Other (As above) Associated Symptoms: Reports: No Other Symptoms (Except as above) Treatments DESIGN QUALITY ENGINEER: Reports: Acetaminophen (Suppositories.) - Related Data Allergies Allergy/AdvReac Type Severity Reaction Status Date / Time metoclopramide [From Reglan] Allergy Agitation Verified 10/18/20 11:30 morphine Allergy Rash Verified 10/18/20 11:30 scopolamine Allergy Agitation Verified 10/18/20 11:30 Home Meds: Home Meds Calcium Carb/Vitamin D3/Vit K1 [Viactiv 650 mg-12.5 Mcg Chew] 2 tab PO WITHBREAKFAST 11/14/18 [History] Chewable Multivitamin 1 tab PO WITHBREAKFAST 11/14/18 [History] Mag Hydrox/Aluminum Hyd/Simeth [Mylanta Maximum Strength Liq] 30 ml PO Q4H PRN 07/06/20 [History] Acetaminophen [Tylenol] 650 mg RECTAL Q6H PRN #10 supp 10/20/20 [Rx] Simethicone [Infants' Gas Relief] 80 mg PO QID PRN bottle 10/20/20 [Rx] Triamcinolone Acetonide [Triamcinolone Acetonide 0.1% Crm] 0 gm TOP BID tube 10/20/20 [Rx] Past Medical History HEENT History: Reports: Impaired Vision, Other (See Below) 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 Gastrointestinal History: Reports: GERD, Other (See Below) Other Gastrointestinal History: lactose intolarant, rectal prolapse Musculoskeletal History: Reports: Other (See Below) Other Musculoskeletal History: SCOLIOSIS Neurological History: Reports: Other (See Below) Other Neuro History: MICROCEPHALY Psychiatric History: Reports: Developmental Delay - Infectious Disease History Infectious Disease History: Reports: None - Past Surgical History HEENT Surgical History: Reports: Oral Surgery GI Surgical History: Reports: Other (See Below) Other GI Surgeries/Procedures: prior surgery done to prolapsed rectum Neurological Surgical History: Reports: None Musculoskeletal Surgical History: Reports: Hip Replacement Other Musculoskeletal Surgeries/Procedures:: left hip replacement. cyst was removed from tailbone Social & Family History - Family History Cardiac: Reports: Heart Failure Musculoskeletal: Reports: Back pain, Chronic Endocrine/Metabolic: Reports: Diabetes, type II Hematologic: Reports: Other (See Below) Other Hematologic Family History: unknown blood disorder - Tobacco Use Tobacco Use Status *Q: Never Tobacco User - Caffeine Use Caffeine Use: Reports: None - Alcohol Use Alcohol Use History: No - Living Situation & Occupation Living situation: Reports: Single Occupation: Disabled ED ROS GENERAL - Review of Systems Review Of Systems: See Below (This is limited. The only history that I can obtain is from the patient's mother. That is detailed below but otherwise the ROS is unobtainable.) Constitutional: Denies: Fever, Chills HEENT: Reports: Throat Pain, Other (No drooling) Respiratory: Denies: Shortness of Breath Cardiovascular: Reports: Chest Pain GI/Abdominal: Denies: Diarrhea, Vomiting Skin: Denies: Diaphoresis, Rash Neurological: Reports: Weakness ED EXAM, GENERAL - Physical Exam Exam: See Below Exam Limited By: No Limitations General Appearance: Alert, Moderate Distress, Thin, Cachetic Eye Exam: Bilateral Eye: EOMI (Sclera are anicteric) Ears: Normal External Exam Ear Exam: Bilateral Ear: Auricle Normal Nose: Normal Inspection, Normal Mucosa, No Blood Throat/Mouth: No Airway Compromise, Other (1 dry mucous membranes.) Head: Atraumatic, Other (Microcephalic) Neck: Normal Inspection, Supple, Non-Tender Respiratory/Chest: No Respiratory Distress, Lungs Clear, Normal Breath Sounds, No Accessory Muscle Use, Chest Non-Tender Cardiovascular: Normal Peripheral Pulses, Regular Rate, Rhythm, No Rub Peripheral Pulses: 2+: Radial (L), Radial (R) GI/Abdominal: Normal Bowel Sounds, Soft, Non-Tender Back Exam: Normal Inspection Extremities: Normal Inspection, No Pedal Edema, Normal Capillary Refill Neurological: Alert, Disoriented, Other (No asymmetry noted. Somewhat less responsive according to mother.) Skin Exam: Warm, Dry, Intact, Normal Color, No Rash Course - Vital Signs Last Recorded V/S: Last Vital Signs Temp 36.4 C 02/02/21 17:20 Pulse 106 H 02/02/21 17:20 Resp 18 02/02/21 17:20 BP 129/86 02/02/21 17:20 Pulse Ox 96 02/02/21 17:20 - Orders/Labs/Meds Orders: Active Orders 24 hr Category Date Time Status EKG Documentation Completion [RC] ASDIRECTED Care 02/02/21 18:15 Active Insert Urinary Catheter [OM.PC] ONETIME Care 02/02/21 18:15 Ordered Urinary Catheter Assessment [RC] QSHIFT Care 02/02/21 18:15 Active Chest 1V Frontal [CR] Stat Exams 02/02/21 18:14 Taken CULTURE URINE [RM] Stat Lab 02/02/21 18:16 Ordered UA W/MICROSCOPIC [URIN] Stat Lab 02/02/21 18:14 Ordered Sodium Chloride 0.9% [Normal Saline] 1,000 ml Med 02/02/21 18:30 Active IV ASDIRECTED Sodium Chloride 0.9% [Saline Flush] Med 02/02/21 18:14 Active 10 ml FLUSH ASDIRECTED PRN Peripheral IV Insertion Adult [OM.PC] Routine Oth 02/02/21 18:14 Ordered EKG 12 Lead [EK] Routine Ther 02/02/21 18:14 Ordered Medication Orders Sodium Chloride (Normal Saline) 1,000 mls @ 125 mls/hr IV ASDIRECTED [facility] Last Admin: 02/02/21 19:15 Dose: 125 mls/hr Documented by: SHO Sodium Chloride (Sodium Chloride 0.9% 10 Ml Syringe) 10 ml FLUSH ASDIRECTED PRN PRN Reason: Keep Vein Open Last Admin: 02/02/21 17:30 Dose: 10 ml Documented by: SHO Labs: Laboratory Tests 02/02/21 02/02/21 02/02/21 Range/Units 18:40 19:10 19:10 WBC 7.3 (3.0-10.3) x10-3/uL RBC 4.52 (3.60-5.20) x10(6)uL Hgb 13.4 (11.4-15.5) g/dL Hct 40.5 (34.2-48.2) % MCV 89.7 (76.7-100.5) fL MCH 29.6 (23.9-33.9) pg MCHC 33.1 (31.9-34.8) g/dL RDW 14.2 (12.3-16.5) % Plt Count 337 (151-488) x10(3)uL MPV 8.5 (7.1-12.4) fL Neut % (Auto) 73.4 (30.8-76.2) % Lymph % (Auto) 15.8 L (18.4-52.1) % Morrill % (Auto) 9.8 (4.4-15.7) % Eos % (Auto) 0.7 (0.6-8.1) % Baso % (Auto) 0.3 (0.2-1.5) % Neut # (Auto) 5.3 (1.5-6.3) x10-3/uL Lymph # (Auto) 1.2 (1.0-4.4) x10-3/uL Morrill # (Auto) 0.7 (0.3-1.0) x10-3/uL Eos # (Auto) 0.1 (0.0-0.8) x10-3/uL Baso # (Auto) 0.0 (0.0-0.1) x10-3/uL Sodium 143 (135-145) mmol/L Potassium 4.1 (3.5-5.3) mmol/L Chloride 108 (100-110) mmol/L Carbon Dioxide 27 (21-32) mmol/L BUN 18 (7-18) mg/dL Creatinine 1.0 (0.55-1.02) mg/dL Est Cr Clr Drug Dosing TNP Estimated GFR (MDRD) 55 L (>60) BUN/Creatinine Ratio 18.0 (9-20) Glucose 126 H (80-116) mg/dL Calcium 9.4 (8.6-10.2) mg/dL Magnesium 2.5 (1.8-2.5) mg/dL Total Bilirubin 0.3 (0.1-1.3) mg/dL AST 8 D (5-25) IU/L ALT 16 D (12-36) U/L Alkaline Phosphatase 130 H (56-112) IU/L Troponin I 5.4 (4.0-60.3) pg/mL Total Protein 6.7 (6.0-8.0) g/dL Albumin 3.0 L (3.2-4.6) g/dL Globulin 3.7 g/dL Albumin/Globulin Ratio 0.8 Meds: Medications Generic Name Dose Route Start Last Admin Trade Name Freq PRN Reason Stop Dose Admin Sodium Chloride 1,000 mls @ 125 mls/hr 02/02/21 18:30 02/02/21 19:15 Normal Saline IV 125 mls/hr ASDIRECTED BLANE Administration Sodium Chloride 10 ml 02/02/21 18:14 02/02/21 17:30 Sodium Chloride 0.9% 10 Ml Syringe FLUSH 10 ml ASDIRECTED PRN Administration Keep Vein Open Discontinued Medications Generic Name Dose Route Start Last Admin Trade Name Amilcar PRN Reason Stop Dose Admin Sodium Chloride 500 mls @ 999 mls/hr 02/02/21 18:17 02/02/21 18:35 Normal Saline IV 02/02/21 18:47 999 mls/hr .BOLUS ONE Administration Pantoprazole Sodium 80 mg 02/02/21 18:17 02/02/21 18:43 Pantoprazole 40 Mg Vial IVPUSH 02/02/21 18:18 80 mg .BOLUS ONE Administration - Re-Assessments/Exams Free Text/Narrative Re-Assessment/Exam: 02/02/21 20:00: Care of patient to Dr. Lyn at this point. Please see his note in regard to the patient's further ED course and disposition. Departure - Departure Time of Disposition: 20:15 Disposition: Still A Patient 30 Condition: Fair Clinical Impression: Dehydration Dysphagia Qualifiers: Dysphagia type: unspecified Qualified Code(s): R13.10 - Dysphagia, unspecified - Discharge Information Referrals: Luan Beebe MD [Primary Care Provider] - Forms: ED Department Discharge Sepsis Event Note (ED) - Focused Exam Vital Signs: Vital Signs Temp Pulse Resp BP Pulse Ox 02/02/21 17:20 36.4 C 106 H 18 129/86 96 - My Orders Last 24 Hours: My Active Orders 02/02/21 18:14 Chest 1V Frontal [CR] Stat UA W/MICROSCOPIC [URIN] Stat Sodium Chloride 0.9% [Saline Flush] 10 ml FLUSH ASDIRECTED PRN Peripheral IV Insertion Adult [OM.PC] Routine EKG 12 Lead [EK] Routine 02/02/21 18:15 EKG Documentation Completion [RC] ASDIRECTED Insert Urinary Catheter [OM.PC] ONETIME Urinary Catheter Assessment [RC] QSHIFT 02/02/21 18:16 CULTURE URINE [RM] Stat 02/02/21 18:30 Sodium Chloride 0.9% [Normal Saline] 1,000 ml IV ASDIRECTED - Assessment/Plan Last 24 Hours: My Active Orders 02/02/21 18:14 Chest 1V Frontal [CR] Stat UA W/MICROSCOPIC [URIN] Stat Sodium Chloride 0.9% [Saline Flush] 10 ml FLUSH ASDIRECTED PRN Peripheral IV Insertion Adult [OM.PC] Routine EKG 12 Lead [EK] Routine 02/02/21 18:15 EKG Documentation Completion [RC] ASDIRECTED Insert Urinary Catheter [OM.PC] ONETIME Urinary Catheter Assessment [RC] QSHIFT 02/02/21 18:16 CULTURE URINE [RM] Stat 02/02/21 18:30 Sodium Chloride 0.9% [Normal Saline] 1,000 ml IV ASDIRECTED
[2021-02-02] MEDS ORDERED: Sodium Chloride 0.9% 10 ML Syringe FLUSH PRN (18:14)
[2021-02-02] MEDS ORDERED: Sodium Chloride 0.9% 500 ML IV ONE (18:17)
[2021-02-02] MEDS ORDERED: Pantoprazole 40 MG Vial IVPUSH ONE (18:17)
[2021-02-02] MEDS: Sodium Chloride 0.9% 1,000 ML IV SCH (19:15)
--- NOTE | 2021-02-02 21:18 | PCM.EKG ---
#1 Interpretation EKG Date: 02/02/21 Time: 20:16 EKG Interpretation Comments: Normal sinus rhythm, rate 90, normal axis, no obvious ST-T segment abnormalities in contiguous leads
[2021-02-03] MEDS: Sodium Chloride 0.9% 1,000 ML IV SCH ×4 (00:45→16:34)
[2021-02-03] MEDS ORDERED: Pantoprazole 40 MG Vial IVPUSH ONE (08:51)
[2021-02-03] MEDS ORDERED: Prochlorperazine 10 MG in Sodium Chloride 0.9% 50 ML IV ONE (10:11)
[2021-02-03] MEDS ORDERED: HYDROmorphone 2 MG/ML SDV IVPUSH ONE (10:13)
[2021-02-03] MEDS ORDERED: Prochlorperazine 10 MG/2 ML SDV IVPUSH ONE (10:17)
[2021-02-03] MEDS ORDERED: HYDROmorphone 2 MG/ML SDV IVPUSH PRN (18:17)
[2021-02-03] MEDS: Prochlorperazine 5 MG in Sodium Chloride 0.9% 50 ML IV SCH (20:20)
[2021-02-04] MEDS ORDERED: Sodium Chloride 0.9% 1,000 ML IV SCH (01:00)
[2021-02-04] MEDS: Prochlorperazine 5 MG in Sodium Chloride 0.9% 50 ML IV SCH (03:18)
[2021-02-04] MEDS ORDERED: 50% Dextrose in Water 50 ML Syringe IVPUSH ONE (07:40)
[2021-02-04] MEDS ORDERED: Pantoprazole 40 MG Vial IVPUSH ONE (07:40)
[2021-02-04] MEDS ORDERED: Dextrose 5%-0.9% NaCl 1,000 ML IV SCH (07:45)
[2021-02-04] MEDS ORDERED: Prochlorperazine 10 MG/2 ML SDV IVPUSH PRN (07:46)
[2021-02-04 14:44] VITALS: BP 160/83; PULSE 96
== END 2021-02-04 14:10 | disposition home or self-care (01) ==
LOC: FB.ED 17:17
DX: R13.10 Dysphagia, unspecified (principal); E86.0 Dehydration; Z88.5 Allergy status to narcotic agent; Z88.8 Allergy status to other drugs, medicaments and biological substances
CPT/HCPCS: 36415; 71045; 80048; 80053; 81001; 83735; 84484; 85025; 87086; 93005; 96365; 96366; 96375; 96376; 99284; C9113; J0780; J1170; J7030; J7040

== ENCOUNTER 2021-03-26 16:57 | Inpatient (IN) | payer MEDICARE, BC, MEDICAID ==
[2021-03-26] MEDS ORDERED: HYDROmorphone 2 MG/ML SDV IVPUSH ONE (17:28)
[2021-03-26] MEDS ORDERED: Acetaminophen 650 MG Supp RECTAL ONE (17:28)
[2021-03-26] MEDS ORDERED: Famotidine 20 MG/2 ML SDV IVPUSH ONE (17:29)
[2021-03-26] MEDS ORDERED: Lactated Ringers 1,000 ML IV ONE (17:29)
[2021-03-26] MEDS ORDERED: HYDROmorphone 2 MG/ML SDV IVPUSH PRN (18:17)
[2021-03-26] MEDS: Lactated Ringers 1,000 ML IV SCH (20:02)
[2021-03-27] MEDS: Lactated Ringers 1,000 ML IV SCH ×2 (06:02→20:03)
[2021-03-27] MEDS ORDERED: Famotidine 20 MG/2 ML SDV IVPUSH SCH ×2 (09:00)
[2021-03-27] MEDS: Famotidine 20 MG/2 ML SDV IVPUSH SCH (10:33)
[2021-03-27] MEDS: Acetaminophen 650 MG Supp RECTAL PRN (20:04)
[2021-03-28] MEDS: Lactated Ringers 1,000 ML IV SCH (02:15)
[2021-03-28] MEDS: Acetaminophen 650 MG Supp RECTAL PRN (03:48)
[2021-03-28] MEDS: Famotidine 20 MG/2 ML SDV IVPUSH SCH (09:39)
[2021-03-28] MEDS: LANSOPRAZOLE 30 MG PO SCH ×2 (09:39→09:58)
[2021-03-28] MEDS: Acetaminophen 325 MG Tab PO PRN ×2 (09:58→15:31)
[2021-03-29] MEDS: Acetaminophen 325 MG Tab PO PRN ×4 (05:30→21:00)
[2021-03-29] MEDS: LANSOPRAZOLE 30 MG PO SCH (09:32)
[2021-03-29] MEDS: Famotidine 20 MG/2 ML SDV IVPUSH SCH (13:29)
[2021-03-29] MEDS ORDERED: Famotidine 20 MG Tab PO SCH (17:30)
[2021-03-30] MEDS: LANSOPRAZOLE 30 MG PO SCH (08:08)
[2021-03-30 09:20] VITALS: BP 96/50; PULSE 66
== END 2021-03-30 13:10 | disposition home or self-care (01) | DRG 392 ==
LOC: FB.ED 16:57 → FB.MS 18:18 → OBSVTOIN 03-28 14:07
PROVIDERS: ADMIT Family Medicine; ATTEND Family Medicine
DX: K21.00 Gastro-esophageal reflux disease with esophagitis, without bleeding (principal); K21.9 Gastro-esophageal reflux disease without esophagitis; R53.1 Weakness; R13.10 Dysphagia, unspecified; E86.0 Dehydration; E73.9 Lactose intolerance, unspecified; M41.9 Scoliosis, unspecified; F79 Unspecified intellectual disabilities; Q02 Microcephaly; Z66 Do not resuscitate; Z51.5 Encounter for palliative care; K62.3 Rectal prolapse; G40.909 Epilepsy, unspecified, not intractable, without status epilepticus; H54.7 Unspecified visual loss; R62.50 Unspecified lack of expected normal physiological development in childhood; Z96.642 Presence of left artificial hip joint; Z20.822 Contact with and (suspected) exposure to COVID-19; Z88.8 Allergy status to other drugs, medicaments and biological substances; Z88.5 Allergy status to narcotic agent; Z79.899 Other long term (current) drug therapy
CPT/HCPCS: 36415 ×2; 80048; 80053; 81001; 85025; 96374; 96375; 99285; A9270 ×5; J1170 ×2; J3490 ×2; J7120 ×5; U0002; 96376; G0378

== ENCOUNTER 2021-04-06 17:27 | Inpatient (IN) | payer MEDICARE, BC, MEDICAID ==
[2021-04-06] MEDS ORDERED: LORazepam 2 MG/ML SDV IM STA ×2 (17:56→17:58)
[2021-04-06] MEDS ORDERED: Ketorolac 30 MG/ML SDV IM STA (17:56)
[2021-04-06] MEDS ORDERED: Sodium Chloride 0.9% 10 ML Syringe FLUSH PRN (18:11)
[2021-04-06] MEDS ORDERED: Sodium Chloride 0.9% 1,000 ML IV SCH ×2 (18:30→20:15)
[2021-04-06] MEDS ORDERED: LORazepam 2 MG/ML SDV IVPUSH ONE (20:06)
[2021-04-06] MEDS ORDERED: LORazepam 2 MG/ML SDV IV PRN (20:07)
[2021-04-06] MEDS ORDERED: Acetaminophen 650 MG Supp RECTAL PRN (20:09)
[2021-04-06] MEDS: Enoxaparin 30 MG/0.3 ML Syringe SUBCUT SCH (20:50)
[2021-04-06] MEDS ORDERED: hydrOXYzine HCl 50 MG/ML SDV IM ONE (23:00)
[2021-04-07] MEDS ORDERED: MULTIVITAMIN PO SCH (08:00)
[2021-04-07] MEDS ORDERED: Calcium Carbonate 500 MG Tab.Chew PO SCH (09:00)
[2021-04-07] MEDS: MULTIVITAMIN PO SCH (09:52)
[2021-04-07] MEDS ORDERED: LORazepam Conc Solution 2 MG/ML 30 ML Bottle PO PRN ×2 (11:59→12:12)
[2021-04-07] MEDS: Famotidine 20 MG Tab *PTOM PO SCH (20:25)
[2021-04-07] MEDS: Enoxaparin 30 MG/0.3 ML Syringe SUBCUT SCH (20:48)
[2021-04-08] MEDS: MULTIVITAMIN PO SCH (08:45)
[2021-04-08] MEDS: CALCIUM CARBONATE 750 MG PO SCH (08:47)
[2021-04-08] MEDS ORDERED: [UNRECOGNIZED DRUG - OTHER] PO PRN (12:47)
[2021-04-08] MEDS ORDERED: OLANZapine 2.5 MG Tab PO ONE (17:24)
[2021-04-08] MEDS ORDERED: FAMOTIDINE 20 MG PO SCH (17:30)
[2021-04-08] MEDS ORDERED: Amoxicillin/Clavulanate K 250-62.5 MG/5 ML Susp 75 ML Bottle PO SCH (17:30)
[2021-04-08] MEDS ORDERED: Amoxicillin/Clavulanate K 500-125 MG Tab PO SCH (17:45)
[2021-04-08] MEDS: Famotidine 20 MG Tab *PTOM PO SCH (17:51)
[2021-04-08] MEDS: Amoxicillin/Clavulanate K 250-62.5 MG/5 ML Susp 75 ML Bottle PO SCH (18:14)
[2021-04-08] MEDS: VITAMIN D3 25 MCG PO SCH (21:43)
[2021-04-09] MEDS ORDERED: CALCIUM CARBONATE 300 MG PO SCH (08:00)
[2021-04-09] MEDS: Amoxicillin/Clavulanate K 250-62.5 MG/5 ML Susp 75 ML Bottle PO SCH ×2 (08:12→20:07)
[2021-04-09] MEDS: VITAMIN D3 25 MCG PO SCH (08:12)
[2021-04-09] MEDS: MULTIVITAMIN PO SCH (08:12)
[2021-04-09] MEDS: CALCIUM CARBONATE 750 MG PO SCH (08:12)
[2021-04-09] MEDS ORDERED: OLANZapine 2.5 MG Tab PO ONE (08:14)
[2021-04-09] MEDS: Acetaminophen 325 MG Tab PO PRN ×2 (08:21→19:48)
[2021-04-09] MEDS: Famotidine 20 MG Tab *PTOM PO SCH (18:04)
[2021-04-10] MEDS: Amoxicillin/Clavulanate K 250-62.5 MG/5 ML Susp 75 ML Bottle PO SCH ×2 (08:24→23:00)
[2021-04-10] MEDS: VITAMIN D3 25 MCG PO SCH (08:25)
[2021-04-10] MEDS: CALCIUM CARBONATE 750 MG PO SCH (08:25)
[2021-04-10] MEDS: MULTIVITAMIN PO SCH (08:25)
[2021-04-10] MEDS: Acetaminophen 325 MG Tab PO PRN ×2 (08:35→23:21)
[2021-04-10] MEDS ORDERED: OLANZapine 2.5 MG Tab PO PRN (08:55)
[2021-04-10] MEDS: Famotidine 20 MG Tab *PTOM PO SCH (17:44)
[2021-04-10] MEDS: OLANZapine 2.5 MG Tab PO SCH ×3 (17:46→23:38)
[2021-04-11] MEDS: CALCIUM CARBONATE 750 MG PO SCH (10:50)
[2021-04-11] MEDS: MULTIVITAMIN PO SCH (10:50)
[2021-04-11] MEDS: VITAMIN D3 25 MCG PO SCH (10:50)
[2021-04-11] MEDS: Acetaminophen 325 MG Tab PO PRN ×2 (10:54→18:00)
[2021-04-11] MEDS: Amoxicillin/Clavulanate K 250-62.5 MG/5 ML Susp 75 ML Bottle PO SCH ×2 (10:54→20:03)
[2021-04-11] MEDS: Famotidine 20 MG Tab *PTOM PO SCH (18:01)
[2021-04-11 21:06] VITALS: BP 104/71
[2021-04-12] MEDS: Acetaminophen 325 MG Tab PO PRN ×2 (02:14→08:10)
[2021-04-12] MEDS: MULTIVITAMIN PO SCH (08:05)
[2021-04-12] MEDS: CALCIUM CARBONATE 750 MG PO SCH (08:05)
[2021-04-12] MEDS: VITAMIN D3 25 MCG PO SCH (08:06)
[2021-04-12 08:53] VITALS: PULSE 118
== END 2021-04-12 13:10 | disposition home health service (06) | DRG 101 ==
LOC: FB.ED 17:27 → FB.MS 20:07 → OBSVTOIN 04-09 08:31
PROVIDERS: ADMIT Student in an Organized Health Care Education/Training Program; ATTEND Family Medicine
DX: R56.9 Unspecified convulsions (principal); G40.909 Epilepsy, unspecified, not intractable, without status epilepticus; Z68.1 Body mass index [BMI] 19.9 or less, adult; F79 Unspecified intellectual disabilities; Z51.5 Encounter for palliative care; Z20.822 Contact with and (suspected) exposure to COVID-19; K21.00 Gastro-esophageal reflux disease with esophagitis, without bleeding; R13.10 Dysphagia, unspecified; R63.0 Anorexia; R41.82 Altered mental status, unspecified; H54.7 Unspecified visual loss; R53.1 Weakness; Q02 Microcephaly; E86.0 Dehydration; E73.9 Lactose intolerance, unspecified; M41.9 Scoliosis, unspecified; R62.50 Unspecified lack of expected normal physiological development in childhood; Z96.642 Presence of left artificial hip joint; Z88.5 Allergy status to narcotic agent; Z88.8 Allergy status to other drugs, medicaments and biological substances; Z79.899 Other long term (current) drug therapy
CPT/HCPCS: 36415 ×3; 80053 ×2; 81001 ×2; 82150; 83690; 85025 ×2; 96372 ×2; 96374; 99285; A9270 ×14; J1650 ×2; J1885; J2060 ×2; J3410; J7030 ×2; U0002; 85651; 86140; 87086; G0378